=== PATIENT | male | born 1940 | race Caucasian/White ===

== ENCOUNTER 2021-11-17 14:34 | Emergency (ER) | payer MEDICARE, SELFPAY ==
--- NOTE | ~2021-11-17 | US_ITS ---
EXAMINATION: US venous doppler LE RT DATE: 11/17/2021 15:28 INDICATION: Right lower limb edema. TECHNIQUE: Grayscale ultrasound images without and with compression and Doppler ultrasound images of the right lower extremity veins were obtained. COMPARISON: None. FINDINGS: The visualized portions of right common femoral vein, profunda (deep) femoral vein, femoral vein, pop liteal vein, peroneal veins, posterior tibial veins, and greater saphenous vein outflow are patent. IMPRESSION: 1. No deep venous thrombosis. Reviewed, dictated and finalized at location A.
[2021-11-17 14:38] VITALS: BP 154/58; PULSE 84; RESP 14; TEMP 36.4; O2SAT 100
[2021-11-17 15:45] LABS: Basophils Percent Auto 0.3 % (0.2-1.2); Eosinophils Absolute Auto 0.1 K/mm3 (0-0.3); Eosinophils Percent Auto 0.8 % (0-4.4); Hematocrit 38.7 % (42.0-52.0); Hemoglobin 12.1 g/dL (14.0-18.0); Immature Granulocyte Absolute 0.04 K/mm3 (0.00-0.031); Immature Granulocyte Percent A 0.5 % (0-0.5); Lymphocytes Absolute Auto 1.38 K/mm3 (0.9-3.2); Lymphocytes Percent Auto 18.5 % (18.3-44.2); Mean Corpuscular HGB Conc 31.3 g/dl (32-36); Mean Corpuscular Hemoglobin 28.5 pg (26-34); Mean Corpuscular Volume 91.1 fl (80-100); Mean Platelet Volume 10.5 fl (7.4-10.4); Monocytes Absolute Auto 0.7 K/mm3 (0.1-0.6); Monocytes Percent Auto 8.8 % (2.6-8.5); Neutrophils Absolute Auto 5.3 K/mm3 (1.3-6.7); Neutrophils Percent Auto 71.1 % (45.5-73.1); Platelet Count Result 206 k/mm3 (150-375); Red Blood Count 4.25 M/mm3 (4.6-6.20); Red Cell Distribution Width 14.7 % (11.5-14.5); White Blood Count 7.5 K/mm3 (4.5-10.0)
[2021-11-17 15:50] LABS: Prothrombin Time 12.8 Seconds (11.1-14.7)
[2021-11-17 15:51] LABS: Partial Thromboplastin Time 25.4 SECONDS (22.3-36.8)
[2021-11-17 15:56] LABS: Anion Gap 6 mmol/L (8-16); Blood Urea Nitrogen 22 mg/dL (9-20); Calcium 8.9 mg/dL (8.4-10.2); Carbon Dioxide 28 mmol/L (22-30); Chloride 103 mmol/L (98-107); Estimated CRCL calculation 53 ml/min; Estimated Glomerular Filt Rate > 60; Glucose 103 mg/dL (65-110); Potassium 3.8 mmol/L (3.4-5.0); Sodium 137 mmol/L (137-145)
--- NOTE | 2021-11-17 16:08 | ED.EXTPRO ---
HPI - Extremity Problem General Chief complaint: Extremity Problem,Nontraumatic Stated complaint: lower leg swelling Time Seen by Provider: 11/17/21 15:02 Source: patient History of Present Illness HPI Narrative: Patient presents with lower extremity swelling and reports recent diagnosis of Parkinson's has had slight decrease in his mobility and had noted some lower extremity edema over the past week or so his right seems worse than his left. Does not describe pain describes an ache to his foot that is constant not worse with moving around no radiation. Denies any chest pain or shortness of breath denies any fevers or congestion. Related Data Allergies Allergy/AdvReac Type Severity Reaction Status Date / Time NONE Allergy Unknown Uncoded 02/23/03 15:11 NO KNOWN DRUG ALLERGIES Allergy Y Uncoded 02/23/03 15:50 (Class Allergy) Review of Systems Review of Systems: CONSTITUTIONAL: Denies fever, chills, or sweats. EYES: Denies visual changes, redness, or discharge. ENT: Denies rhinorrhea, congestion, sore throat, or otalgia. CARDIOVASCULAR: Denies chest pain, palpitations, or edema. RESPIRATORY: Denies cough or dyspnea. GASTROINTESTINAL: Denies abdominal pain, nausea, vomiting, or diarrhea. GENITOURINARY: Denies dysuria or hematuria. SKIN: Denies rash or itching. MUSCULOSKELETAL: Denies back pain, joint pain, or myalgia. NEUROLOGIC: Denies headache, numbness, dizziness, or weakness. PSYCHIATRIC: Denies anxiety or depression. All systems reviewed & are unremarkable except as noted in HPI and below PMFSH Past Medical History Medical History (Updated 11/17/21 @ 16:11 by Chris Borden MD) Parkinsons Social History Social History (Updated 11/17/21 @ 16:09 by Chris Borden MD) Living arrangements: with family Exam Narrative: GENERAL: Well-appearing, well-nourished, and in no acute distress. HEAD: Normocephalic, atraumatic. EYES: PERRLA and EOMI. ENT: Nares clear, no rhinorrhea or epistaxis. Mucous membranes moist. NECK: Supple. No masses. No JVD CHEST: Clear to auscultation. No respiratory distress. No wheezes rales or rhonchi HEART: Regular rate and rhythm. No murmur heard. Normal peripheral pulses. ABDOMEN: Soft, nontender, nondistended, normal active bowel sounds. EXTREMITIES: Normal range of motion. 1+ pitting edema right worse than left predominantly on the bilateral feet SKIN: Warm, dry, no rash. NEURO: No focal deficits. Alert and oriented x3. PSYCH: Normal mood and affect. Course Reevaluation(s) Reevaluation #1: Results and plan reviewed with patient. Patient comfortable with outpatient plan. Date: 11/17/21 Time: 16:10 Vital Signs Vital signs: Vital Signs Temperature 36.4 C L 11/17/21 14:38 Pulse Rate 84 11/17/21 14:38 Respiratory Rate 14 11/17/21 14:38 Blood Pressure 154/58 H 11/17/21 14:38 Pulse Oximetry 100 11/17/21 14:38 Temperature 36.9 C 11/17/21 16:52 Pulse Rate 80 11/17/21 16:52 Respiratory Rate 16 11/17/21 16:52 Blood Pressure 155/92 H 11/17/21 16:52 Pulse Oximetry 97 11/17/21 16:52 MDM - Extremity (Nontraumatic) MDM Narrative Medical decision making narrative: H&P as above, vss, pt looks clinically well, exam 1+ pitting edema in the bilateral lower extremities, labs clinically unremarkable, img clinically unremarkable, additional labs/img considered, symptomatic relief available as needed, on reevaluation pt continues to looks clinically well. Suspect edema related to increased sedentary lifestyle and recent diagnosis of Parkinson low concern for DVT, patient counseled on compression stockings. plan to tx/monitor as op w/ pcm f/u findings/plan discussed with pt, pt agree/comfortable with plan, return precautions given Lab Data Result diagrams: 11/17/21 15:33 11/17/21 15:33 Labs: Lab Results 11/17/21 11/17/21 11/17/21 Range/Units 15:33 15:33 15:33 WBC 7.5 (4.5-10.0) K/mm3 RBC 4.25 L (4.6-6.20) M/mm
[2021-11-17 16:51] VITALS: BP 155/92; PULSE 81; RESP 20; TEMP 36.9; O2SAT 98
[2021-11-17 16:52] VITALS: BP 155/92; PULSE 80; RESP 16; TEMP 36.9; O2SAT 97
== END 2021-11-17 16:59 | disposition home or self-care (01) ==
PROVIDERS: Emergency Provider Emergency Medicine; PCP Family Medicine Adolescent Medicine
DX: R60.0 Localized edema (principal); G20 Parkinson's disease
CPT/HCPCS: 36415; 80048; 85025; 85610; 85730; 93971; 99284

== ENCOUNTER 2022-01-13 17:53 | Inpatient (IN) | payer MEDICARE, SELFPAY ==
[2022-01-13] VITALS (9 sets, daily range): BP systolic 119–141; BP diastolic 58–105; PULSE 86–115; RESP 20–28; TEMP 36.3–36.5; O2SAT 95–98
--- NOTE | ~2022-01-13 | CT_ITS ---
EXAMINATION: CT diagnostic chest wo con DATE: 01/18/2022 11:27 INDICATION: Right chest wall hematoma/swelling. Covid infection. COPD. TECHNIQUE: Computed tomography (CT) of the chest was performed without intravenous contrast. The dose -length product was 573.41 mGy-cm. Automated exposure control and iterative reconstruction technique were employed. COMPARISON: Chest x-ray dated 01/16/2022 FINDINGS: There is significant enlargement of the right pectoralis muscle which contains large areas of fluid attenuation, consistent with intramuscular hematoma. There is extensive stranding of the fat surrounding the pectoralis muscle extending into the axilla, consistent with hemorrhage extension. N o significant pleural or pericardial effusion. Heart size normal. Large hiatal hernia. No thoracic ly mphadenopathy. No endobronchial lesions. Calcified granuloma left upper lobe. Evaluation of lung pare nchyma limited by motion. No pneumothorax. There is mild age-indeterminate inferior endplate compress ion fracture of T12. No focal airspace consolidation. No endobronchial lesions. IMPRESSION: 1. Asymmetric enlargement of the right pectoralis muscle with areas of internal fluid attenuation, co nsistent with intramuscular hematoma. There is extension into the surrounding fat and axilla. 2: Age indeterminate inferior endplate compression fracture of T12. Reviewed, dictated and finalized at location B. IMPRESSION: 1. Asymmetric enlargement of the right pectoralis muscle with areas of internal fluid attenuation, consistent with intramuscular hematoma. There is extension into the surrounding fat and axilla. 2: Age indeterminate inferior endplate compression fracture of T12.
--- NOTE | ~2022-01-13 | XR_ITS ---
EXAMINATION: XR chest 1V portable DATE: 01/16/2022 10:48 INDICATION: Shortness of breath. TECHNIQUE: A single frontal view of the chest was obtained. COMPARISON: Chest single view 01/13/2022 FINDINGS: There is mild elevation of left hemidiaphragm. There is mild atelectasis in the lower lung zones. A calcified left lung nodule is consistent with old granulomatous disease. No pleural effusion or pneumothorax. The heart size is normal. IMPRESSION: 1. Mild atelectasis in the lower lung zones. Reviewed, dictated and finalized at location B.
--- NOTE | ~2022-01-13 | XR_ITS ---
XR chest 1V portable 01/19/2022 13:32 Indication: Confusion and shortness of breath Procedure: AP portable chest Comparison: 01/16/2022 Findings: Calcified granuloma are present in the left lung. Stable cardiomediastinal silhouette. Ther e is a hiatal hernia. No focal air space disease, pulmonary edema, pleural effusion or suspected pneu mothorax. Shallow inspiration with crowding of the pulmonary vessels. Impression: 1: No acute cardiopulmonary disease. Reviewed, dictated and finalized at location B. Impression: 1: No acute cardiopulmonary disease.
--- NOTE | ~2022-01-13 | CT_ITS ---
EXAMINATION: CT brain wo con DATE: 01/13/2022 18:21 INDICATION: weakness TECHNIQUE: Computed tomography (CT) of the head was performed without intravenous contrast. The mA wa s adjusted according to patient size. Iterative reconstruction technique was employed. The dose-lengt h product was 681.00 mGy-cm. COMPARISON: None. FINDINGS: No acute intracranial hemorrhage or extra-axial fluid collection. No hydrocephalus, mass, or herniation. No acute ischemic infarct. Unremarkable dural venous sinus attenuation. No acute osseous abnormality. Left posterior ethmoid opacification. Mucosal thickening and stranding sclerosis in the left frontal, right sphenoid, and bilateral maxillary sinuses, otherwise the aerated spaces are clear. Moderate atrophy and severe chronic white matter change. Atherosclerotic intrarenal calcifications. IMPRESSION: No acute intracranial process. Findings suggestive of chronic sinusitis as described above. Reviewed, dictated and finalized at location K. IMPRESSION: No acute intracranial process. Findings suggestive of chronic sinusitis as desc ribed above.
--- NOTE | ~2022-01-13 | US_ITS ---
EXAMINATION: US renal BI DATE: 01/20/2022 13:59 INDICATION: elevated creatinine TECHNIQUE: Multiple grayscale and Doppler ultrasound images of the kidneys were obtained. COMPARISON: None available FINDINGS: Exam limited by body habitus and bowel gas. The right kidney measures 11.0 x 5.2 x 5.0 cm. The left k idney measures 10.1 x 5.6 x 5.6 cm. The kidneys demonstrate normal parenchymal echogenicity.No sonogr aphic evidence of nephrolithiasis. No mass. No hydronephrosis. Bladder not visualized. IMPRESSION: 1. Exam limited as described above, within those constraints no renal abnormality detected. Bladder n ot visualized. Reviewed, dictated and finalized at location K. IMPRESSION: 1. Exam limited as described above, within those constraints no renal abnormali ty detected. Bladder not visualized.
--- NOTE | ~2022-01-13 | CT_ITS ---
EXAMINATION: CTA chest abdomen DATE: 01/23/2022 12:00 INDICATION: Acute anemia. Chest wall hematoma. TECHNIQUE: Computed tomographic angiography (CTA) of the chest and abdomen was performed with 100 mL Omnipaque 300 intravenous contrast. Automated exposure control and iterative reconstruction technique were employed. The dose-length product was 1325.83 mGy-cm. Maximum intensity projection 3D-reconstru ctions of the aorta and other arteries were constructed by the technologist on a separate workstation . COMPARISON: Chest CT 01/18/2022 FINDINGS: CHEST CTA: The lungs demonstrate motion artifact and mild atelectasis. No pleural effusion. The heart size is no rmal. There are coronary artery calcifications. No pericardial effusion. Thoracic aorta is normal in caliber. Aortic atherosclerosis is noted. There is a large sliding hiatal hernia. There is a large he matoma expanding right pectoralis minor muscle. Active extravasation of contrast is not identified. T here is mild thoracic spondylosis. There is a benign bone island in C6 vertebral body. There is a com pression fracture of T12. ABDOMEN CTA: The liver, gallbladder, spleen, pancreas, and adrenal glands are normal. There is cortical thinning o f the kidneys. There is a 14 mm cyst in right kidney. There are no dilated loops of bowel. Body wall edema is noted. There is severe lower lumbar spondylosis. IMPRESSION: 1. Large hematoma expanding right pectoralis minor muscle with interval worsening. No active extravas ation of contrast. 2. T12 compression fracture again seen, likely subacute. Reviewed, dictated and finalized at location A. IMPRESSION: 1. Large hematoma expanding right pectoralis minor muscle with interval worseni ng. No active extravasation of contrast. 2. T12 compression fracture again seen, likely subacute.
--- NOTE | ~2022-01-13 | CT_ITS ---
EXAMINATION: CT brain wo con DATE: 01/25/2022 17:22 INDICATION: Confusion TECHNIQUE: Computed tomography (CT) of the head was performed without intravenous contrast. The dose- length product was 681.00 mGy-cm. Automated exposure control and iterative reconstruction technique w ere employed. COMPARISON: CT dated 01/13/2022 FINDINGS: Generalized atrophy. There are scattered moderate-severe periventricular and subcortical wh ite matter changes, most likely related to small vessel ischemic disease (microangiopathy). No ventri culomegaly or midline shift. There is intracranial atherosclerosis. No acute intracranial hemorrhage, infarction, mass or mass effect. There is mucosal thickening of the maxillary, ethmoid, sphenoid and left frontal sinuses with mucoperiosteal reaction. Mastoids are pneumatized. No depressed skull frac tures. IMPRESSION: 1. No acute intracranial abnormality. 2: Chronic sinusitis. 3: Chronic age-related findings. Reviewed, dictated and finalized at location A.
--- NOTE | ~2022-01-13 | XR_ITS ---
EXAMINATION: XR chest 1V portable Exam Date/Time: 01/13/2022 18:16 CDT CLINICAL HISTORY: SOB Comparison: None available. RESULT: Lines, tubes, and devices: None. Lungs and pleura: Left hemidiaphragm elevation and right hemidiaphragm eventration. Streaky bibasila r opacities. Otherwise clear. Cardiomediastinal silhouette: Arch calcification, otherwise normal cardiomediastinal silhouette. Other: No acute osseous or upper abdominal finding. IMPRESSION: No acute cardiopulmonary process. Minimal bibasilar opacities often attributed to atelectasis. Reviewed, dictated and finalized at location K.
--- NOTE | ~2022-01-13 | XR_ITS ---
EXAMINATION: XR chest PICC line Exam Date/Time: 01/21/2022 16:00 CDT HISTORY: PICC placement Comparison: Same date, 12:13 AM. RESULT: Lines, tubes, and devices: New left upper extremity PICC terminating in the SVC. Lungs and pleura: Unchanged pulmonary and thoracic opacities. Cardiomediastinal silhouette: Stable cardiomediastinal silhouette. Other: No acute osseous or upper abdominal finding. IMPRESSION: Left upper extremity PICC, in good position. No other interval change.. Reviewed, dictated and finalized at location K.
--- NOTE | ~2022-01-13 | XR_ITS ---
EXAMINATION: XR barium swallow modified DATE: 01/25/2022 09:50 INDICATION: Dysphagia. TECHNIQUE: The patient was given barium-containing material of multiple consistencies to swallow by t he speech pathologist while I performed fluoroscopy. Fluoroscopy exposure time was 2.8 minutes. The n umber of fluoroscopy images saved to the PACS was 1. Dose-area product was 2.787 Gy-cm^2. FINDINGS: There was reduced laryngeal elevation and minimal vallecular residue. There was laryngeal penetration with thin liquids and nectar thick liquids with delayed cough. Aspiration was not visualized, but se nsitivity is decreased due to the positioning of the patient's shoulders. IMPRESSION: 1. Laryngeal penetration with thin liquids and nectar thick liquids. 2. Please refer to the speech therapy report for recommendations. Reviewed, dictated and finalized at location A.
--- NOTE | ~2022-01-13 | XR_ITS ---
EXAMINATION: XR chest 1V portable DATE: 01/21/2022 00:51 INDICATION: Tachycardia. Congestion. Large right upper chest hematoma. TECHNIQUE: frontal view of the chest was obtained. COMPARISON: 01/19/[address] dated 01/18/2022 FINDINGS: Unchanged elevation the left hemidiaphragm with mild streaky lingular atelectasis at the left costoph renic angle. Small calcified nodules at the left midlung zone consistent with old granulomatous disea se. Asymmetric hazy opacity throughout the right hemithorax likely resulting from the overlying anter ior right chest wall subpectoral hematoma. No pulmonary edema, pleural effusion or pneumothorax. Hear t size is normal. Moderate-sized hiatal hernia. Moderate bilateral glenohumeral osteoarthritis. IMPRESSION: 1. Mild lingular atelectasis. No other acute cardiopulmonary disease. Reviewed, dictated and finalized at location A.
--- NOTE | 2022-01-13 18:03 | ECG_ITS ---
Measurements Intervals [place] Rate: 99 P: SC: 0 QRS: -5 QRSD: 82 T: 4 QT: 316 QTc: 405 Interpretive Statements ATRIAL FIBRILLATION EARLY PRECORDIAL R/S TRANSITION BASELINE ARTIFACT- II, III, AVF ABNORMAL ECG Electronically Signed On 01-13-2022 20:36:40 CDT by Vinh Humphreys D.O.
--- NOTE | 2022-01-13 18:07 | ED.WEAKNESS ---
HPI - Weakness General Chief complaint: Weakness Stated complaint: weakness Time Seen by Provider: 01/13/22 17:57 Source: patient Mode of arrival: ambulatory Limitations: no limitations History of Present Illness HPI Narrative: 81 year old male presents today via ems with complaints of weakness. Patient has history of parkinson's and ble edema. Patient lives at home and normally has help from his daughter, but currently she has covid and is no able to help as much. Patient seen here for similar symptoms about a week ago. Patient currently alert and oreinted x 2. Related Data Home Medications Medication Instructions Recorded Confirmed carbidopa-levodopa 1 tablet PO TID 01/13/22 01/13/22 fluticasone furoate-vilanterol 1 inh INHALATION DAILY 01/13/22 01/13/22 [Breo Ellipta] vit C,E-Qn-mkfwm-lutein-zeaxan 1 tablet PO BID 01/13/22 01/13/22 [PreserVision AREDS-2] Allergies Allergy/AdvReac Type Severity Reaction Status Date / Time No Known Allergies Allergy Verified 01/13/22 22:48 Review of Systems Review of Systems: CONSTITUTIONAL: Denies fever, chills, or sweats. EYES: Denies visual changes, redness, or discharge. ENT: Denies rhinorrhea, congestion, sore throat, or otalgia. CARDIOVASCULAR: Denies chest pain, palpitations, or edema. RESPIRATORY: Denies cough or dyspnea. GASTROINTESTINAL: Denies abdominal pain, nausea, vomiting, or diarrhea. GENITOURINARY: Denies dysuria or hematuria. SKIN: Denies rash or itching. MUSCULOSKELETAL: Denies back pain, joint pain, or myalgia. NEUROLOGIC: Weakness. Denies headache, numbness, dizziness. PSYCHIATRIC: Denies anxiety or depression. 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 Parkinsons Surgical History Surgical History (Updated 01/13/22 @ 23:37 by Elizabeth Carvajal DO) Surgical history unknown Family History Family History Grandparent Diabetes mellitus Father Malignant neoplasm of prostate Mother Diabetes mellitus Sibling Axonal GBS (Guillain-[place] syndrome) Social History Social History (Updated 01/13/22 @ 23:43 by Elizabeth Carvajal DO) Social History: Code status: Full code Surrogate decision maker: Daughter Smoking status: Never smoker Alcohol intake: never Substance use: never Substance use type: does not use Living arrangements: alone Spiritual care concerns: No Exam Narrative: GENERAL: ill appearing and in no acute distress. HEAD: Normocephalic, atraumatic. EYES: PERRLA and EOMI. ENT: Nares clear, no rhinorrhea or epistaxis. Mucous membranes moist. Oropharynx without tonsillar hypertrophy exudate or other lesions. Bilateral TMs pearly dunne nonbulging NECK: Supple. No adenopathy or masses. No carotid bruits or JVD CHEST: Clear to auscultation. No respiratory distress. No wheezes rales or rhonchi HEART: Regular rate and rhythm. No murmur heard. Normal peripheral pulses. ABDOMEN: Soft, nontender, nondistended, normal active bowel sounds. EXTREMITIES: Normal range of motion. No edema. SKIN: Warm, dry, no rash. NEURO: No focal deficits. Alert and oriented x3. PSYCH: Normal mood and affect. Course MEDICAL DETAIL REPRESENTATIVE/PA Physician Supervision 81-year-old male presents today with weakness. EKG shows A. fib with a heart rate of 99. Monitor shows heart rate ranging from 99-1 25. Patient without any complaints other than weakness. Denies shortness of breath, chest pain, cold symptoms. Patient seen here about a month ago for bilateral lower extremity swelling. Patient still with swelling to bilateral lower extremities. Talk to daughter on the phone patient without any cardiac history. Patient new onset A. fib to be admitted for further management by hospitalist and cardiology. Daughter is
[2022-01-13 18:37] LABS: Base Excess ABG 0.6 mEq/l (+/-2.0); Fractional Inspired Oxygen 21 %; HCO3 ABG 23.8 mEq/l (22.0-26.0); Oxygen Content ABG 16.7 %vol (16.0-22.0); Oxygen Saturation ABG 95.4 % (95.0-100.0); Oxyhemoglobin 94.1 % THb (90.0-100.0); PCO2 ABG 33.7 mmHg (35.0-45.0); PO2 ABG 71.4 mmHg (80.0-100.0); Total Hemoglobin 12.6 g/dL (12.0-18.0); pH ABG 7.467 (7.350-7.450)
[2022-01-13 18:39] LABS: Device ROOM AIR; Modified Allen's Test Pass; Site Drawn RIGHT RADIAL
[2022-01-13 18:53] LABS: Basophils Percent Auto 0.4 % (0.2-1.2); Eosinophils Percent Auto 0.4 % (0-4.4); Hematocrit 37.8 % (42.0-52.0); Hemoglobin 11.9 g/dL (14.0-18.0); Immature Granulocyte Absolute 0.04 K/mm3 (0.00-0.031); Immature Granulocyte Percent A 0.7 % (0-0.5); Lymphocytes Absolute Auto 1.05 K/mm3 (0.9-3.2); Lymphocytes Percent Auto 18.9 % (18.3-44.2); Mean Corpuscular HGB Conc 31.5 g/dl (32-36); Mean Corpuscular Hemoglobin 27.2 pg (26-34); Mean Corpuscular Volume 86.5 fl (80-100); Mean Platelet Volume 11.4 fl (7.4-10.4); Monocytes Absolute Auto 0.7 K/mm3 (0.1-0.6); Monocytes Percent Auto 12.6 % (2.6-8.5); Neutrophils Absolute Auto 3.7 K/mm3 (1.3-6.7); Platelet Count Result 154 k/mm3 (150-375); Red Blood Count 4.37 M/mm3 (4.6-6.20); Red Cell Distribution Width 14.7 % (11.5-14.5); White Blood Count 5.6 K/mm3 (4.5-10.0)
[2022-01-13 19:05] LABS: Alanine Aminotransferase 10 U/L (6-50); Albumin Level 3.6 g/dL (3.5-5.1); Alkaline Phosphatase 57 U/L (38-126); Anion Gap 7 mmol/L (8-16); Aspartate Amino Transferase 36 U/L (17-59); Bilirubin,Total 1.1 mg/dL (0.2-1.3); Blood Urea Nitrogen 24 mg/dL (9-20); Calcium 8.6 mg/dL (8.4-10.2); Carbon Dioxide 24 mmol/L (22-30); Chloride 104 mmol/L (98-107); Estimated CRCL calculation 66 ml/min; Estimated Glomerular Filt Rate > 60; Glucose 108 mg/dL (65-110); Magnesium 1.9 mg/dL (1.6-2.3); Sodium 135 mmol/L (137-145)
[2022-01-13 19:11] LABS: INR 1.1; Prothrombin Time 13.8 Seconds (11.1-14.7)
[2022-01-13 19:12] LABS: Partial Thromboplastin Time 27.9 SECONDS (22.3-36.8)
--- NOTE | 2022-01-13 19:12 | PC.NURSE ---
Assuming care of pt.
[2022-01-13 19:16] LABS: NT Pro B Type Natriuretic Pept 381 pg/mL (5-100); Troponin I 0.014 ng/mL (0.000-0.034)
[2022-01-13 19:38] LABS: SARS-CoV-2 RNA PCR Positive
[2022-01-13] MEDS: dilTIAZem HCl INJ 25 MG/5 ML VIAL 10 MG IV PUSH (19:54)
[2022-01-13] MEDS: dilTIAZem HCL 30 MG TABLET PO (19:54)
[2022-01-13] MEDS: ENOXAPARIN 100 MG/ML SYRINGE SUB-Q (21:07)
--- NOTE | 2022-01-13 22:03 | ADMGEN ---
This patient, Zaheer Campbell, was admitted to 2 Medical Room 257-01 @2200. Patient/family oriented to hospital policies and general routines including ID bracelet, bed and alarms, visiting hours, pain management, procedures, bathroom and other care routines, personal items, smoking policy, room service/diet, and visiting hours. Information on how to activate the Rapid Response Team has been discussed. Patient/Family are encouraged to report perceived risks to care and to ask questions if they do not understand what they are told or what they should do.
--- NOTE | 2022-01-13 23:32 | PM.IMHP ---
H&P: HPI History of Present Illness Date/Time: 01/13/22 23:32 Chief Complaint: Weakness Narrative: 81-year-old male with past medical history of Parkinson's, COPD and previously undiagnosed dementia who presented to the ER with weakness for 5 days. The patient's daughter was diagnosed with COVID 5-7 days ago. The patient was tested for COVID on arrival to the ER found to be positive. The patient had denied having any cough but was only a alert oriented x1 and was noted to be coughing when I arrived at the patient's bedside. Patient was also noted to be wheezing. He denied feeling more short of breath than usual. He does report having lower extremity edema but is unclear if his edema is worse than usual. He denies any fevers or chills. He denied any chest pain. He denies having any changes in bowel habits. He was noted to be in AFib on arrival to the ER but denies any palpitations. The patient does not have a known history of atrial fibrillation but has not had an EKG within our system previously. The patient's daughter reports the patient has not been diagnosed with dementia. However she did report to nursing staff that the patient has been having progressively increasing confusion since his Parkinson's diagnosis back in May of 2021. She reports that the patient had poor depends in the past but only had rare episodes of urine incontinence. Evidently when she went over to patient's house recently she found several saturated depends in the trash. Despite the patient denying any episodes of incontinence at home. He also had associated maceration of skin is inguinal folds. ER staff had reported that the patient lives with his daughter. Unfortunately, the patient actually lives alone in his daughter goes check on him frequently. The ER note states that the patient has been having lower extremity swelling for the last week. However, patient was evaluated in October due to lower extremity swelling. So it seems the patient's lower extremity swelling has been ongoing for at least several months. The patient had venous Dopplers that were negative for DVT in October 2021. He denies any calf pain. Review of Systems Review of Systems: Twelve systems were reviewed however limited due to patient being a poor historian. Pertinent positives and negative can be found under HPI. The majority of HPI was obtained from review of ER records and nursing report. [facility] Past Medical History Medical History (Updated 01/13/22 @ 23:49 by Elizabeth Carvajal DO) Bilateral cataracts COPD (chronic obstructive pulmonary disease) Dementia associated with Parkinson's disease Macular degeneration Parkinsons Surgical History Surgical History (Updated 01/13/22 @ 23:37 by Elizabeth Carvajal DO) Surgical history unknown Family History Family History Grandparent Diabetes mellitus Father Malignant neoplasm of prostate Mother Diabetes mellitus Sibling Axonal GBS (Guillain-[place] syndrome) Social History Social History (Updated 01/13/22 @ 23:43 by Elizabeth Carvajal DO) Social History: Code status: Full code Surrogate decision maker: Daughter Smoking status: Never smoker Alcohol intake: never Substance use: never Substance use type: does not use Living arrangements: alone Spiritual care concerns: No Meds Home Medications and Allergies Home Medications Medication Instructions Recorded Confirmed Type carbidopa-levodopa 1 tablet PO TID 01/13/22 01/13/22 History fluticasone furoate-vilanterol 1 inh INHALATION DAILY 01/13/22 01/13/22 History [Breo Ellipta] vit C,E-Lr-spcez-lutein-zeaxan 1 tablet PO BID 01/13/22 01/13/22 History [PreserVision AREDS-2] Allergies Allergy/AdvReac Type Severity Reaction Status Date / Time No Known Allergies Allergy Verified 01/13/22 22:48 Vital Signs Vital Signs - 24 hr 01/13/22 18:00 01/13/22 18:11 01/13/22
[2022-01-14] VITALS (14 sets, daily range): BP systolic 127–134; BP diastolic 68–92; PULSE 79–109; RESP 12–20; TEMP 35.8–36.9; O2SAT 95–96
[2022-01-14] MEDS: SODIUM CHLORIDE 0.9% IV 1,000 ML 250 ML IV CONT (00:10)
[2022-01-14] MEDS: dilTIAZem HCL 30 MG TABLET PO ×2 (00:11→05:14)
[2022-01-14 00:51] LABS: Add Urine Microscopic? YES; Appearance Urine Clear (Clear); Bilirubin Urine 1+ (Negative); Blood Urine Negative (Negative); Color Urine Yellow (Yellow); Glucose Urine UA Negative (Negative); Ketones Urine 2+ mg/dL (Negative); Leukocyte Esterase Ur Negative LEU/UL (Negative); Nitrate Urine Negative (Negative); Protein Urine 1+ mg/dL (Negative); Specific Grav Ur >= 1.030 (1.001-1.035); pH Urine 5.5 (5.0-9.0)
[2022-01-14 01:02] LABS: Mucus Urine Rare /lpf; RBC Urine 0-2 /hpf (0-2)
[2022-01-14] MEDS: LEVALBUTEROL HFA (*SP) 15 GM INHALER 2 PUFF INHALATION ×4 (02:20→20:20)
[2022-01-14] MEDS: OPTI-GEN TAB 1 TABLET PO ×2 (08:54→17:07)
[2022-01-14] MEDS: CARBIDOPA/LEVODOPA 10/100 MG TABLET 1 TABLET PO ×3 (08:54→17:07)
[2022-01-14] MEDS: ENOXAPARIN 100 MG/ML SYRINGE SUB-Q ×2 (08:54→20:42)
--- NOTE | 2022-01-14 09:23 | PM.CNCAR ---
Assessment and Plan Assessment and plan (1) New onset a-fib: Code(s): I48.91 - Unspecified atrial fibrillation Status: Acute Assessment and Plan: Atrial fibrillation on certain duration. He is back in sinus rhythm at this point. He is unlikely anticoagulation candidate given his Parkinson's and fall history but his gait stability will need to be assessed by physical therapy before discharge. His atrial fibrillation is likely brought on by his COVID infection. Enoxaparin 1 milligram/kilogram subQ q.12 hours for now while in the hospital. Will transition him from diltiazem to metoprolol. Will use metoprolol tartrate 25 mg p.o. b.i.d.. Discontinue diltiazem. 2D echocardiogram Doppler be ordered and reviewed. Check a TSH and free T4 level. (2) COVID: Code(s): U07.1 - COVID-19 Status: Acute Assessment and Plan: Isolation precaution to (3) Weakness: Code(s): R53.1 - Weakness Status: Acute Assessment and Plan: Likely related to a combination of COVID and AFib (4) Parkinsons: Code(s): G20 - Parkinson's disease Status: Acute History of Present Illness History of Present Illness Consult date/time: 01/14/22 09:23 Requesting physician: Miryam Fragoso APRN Consult reason: atrial fibrillation Reason For Visit: new onset afib Narrative: Date of service 01/14/2022 Reason for consultation atrial fibrillation Requesting provider: Miryam fragoso. Is History: Patient 81-year-old male who has Parkinson's disease who has recently fallen. He also has dementia COPD and a recent diagnosis of COVID. Patient states he was more short of breath over the past several days. He is progressively more weak and because of confusion, weakness and shortness of breath he came to hospital for further workup evaluation. He was found to be in atrial fibrillation with rapid ventricular response. He was admitted to the general telemetry floor. He has since converted back to sinus rhythm. He is feeling a little bit better today. He denies any chest pain, syncope, presyncope, paroxysmal nocturnal dyspnea, orthopnea, edema or palpitations. Review of Systems Review of Systems: All systems reviewed & are unremarkable except as noted in HPI and below Constitutional: Constitutional: Reports weakness Eyes: Eyes: Denies blurry vision ENT: Reports Normal hearing present Cardiovascular: Cardiovascular: Denies chest pain Respiratory: Respiratory: Reports dyspnea Gastrointestinal: Gastrointestinal: Denies abdominal pain Genitourinary: Genitourinary: Reports urinary frequency Musculoskeletal: Musculoskeletal: Denies neck pain Integumentary/Breasts: Skin/Breast: Denies dry skin Neurologic: Denies headache(s) Psychiatric: Psychiatric: Denies anxiety Endocrine: Endocrine: Denies excessive sweating Hematologic/Lymphatic: Hematologic/Lymphatic: Denies easy bleeding Allergic/Immunologic: Allergic/Immunologic: Denies GI upset with certain foods PMFSH Past Medical History Medical History Bilateral cataracts COPD (chronic obstructive pulmonary disease) 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
[2022-01-14] MEDS: FLUTICASONE/SALMETEROL 115-21 MCG INHALER 1 PUFF 2 PUFF INHALATION ×2 (09:32→20:20)
[2022-01-14 11:27] LABS: Free T4 Free Thyroxine 0.97 ng/mL (0.78-2.19)
--- NOTE | 2022-01-14 17:16 | PM.IMPN ---
Progress Note: A&P Assessment and Plan (1) New onset a-fib: Code(s): I48.91 - Unspecified atrial fibrillation Status: Acute Assessment and Plan: Patient has new onset of AFib previously undiagnosed. Duration of AFib is unknown. Will obtain echocardiogram to evaluate cardiac structure and function. Patient has get been given therapeutic Lovenox. Patient started on Cardizem pushes in the ER and has been started on Cardizem p.o.. For the most part patient's heart rate has been between 90 and 110s. Cardiology has been consulted. The risks and benefits of long-term anticoagulation will need to be discussed with the patient's daughter as patient cannot give informed consent at this time with his dementia. Patient is at high risk for falls. 01/14: Echo pending, appreciate cardiology consultation (2) COVID: Code(s): U07.1 - COVID-19 Status: Acute Assessment and Plan: 01/14: Appears to be asymptomatic 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; F02.80 - Dementia in other diseases classified elsewhere without behavioral disturbance Status: Inactive (5) Parkinsons: Code(s): G20 - Parkinson's disease Status: Acute Assessment and Plan: Continue home medications Subjective Date/time seen: 01/14/22 17:16 Patient resting comfortably without any complaints. He does admit to having some swelling over the last couple months. Denies any fevers or chills. No nausea vomiting or diarrhea. Review of Systems Review of Systems: All systems reviewed & are unremarkable except as noted in HPI and below Exam Const: General: no acute distress HENMT: Mouth: Yes moist mucous membranes Eyes: General: appearance normal, both eyes and all related structures Neck: Neck: no JVD Resp: Auscultation: clear to auscultation bilaterally Cardio: Rhythm: abnormal rhythm GI: Inspection: non-distended GI Palp: Yes Soft to palpation and No Tenderness to palpation present (GI) : Male General Exam: Yes normal external exam Skin: General skin exam: no rashes or lesions noted Psych: Mental Status: mental status grossly normal Objective Data Vital Signs Vital Signs: Vital Signs - 24 hr 01/13/22 18:00 01/13/22 18:11 01/13/22 19:12 Temperature 97.4 F L Pulse Rate 102 H 110 H 107 H Respiratory Rate 28 H 20 Blood Pressure 119/58 L 137/76 Pulse Oximetry 98 96 01/13/22 19:55 01/13/22 20:18 01/13/22 21:01 Temperature Pulse Rate 115 H 97 86 Respiratory Rate 22 H 20 20 Blood Pressure 119/93 H 137/69 141/90 H Pulse Oximetry 96 96 96 01/13/22 21:16 01/13/22 22:18 01/13/22 22:51 Temperature 97.7 F Pulse Rate 88 108 H 112 H Respiratory Rate 22 H 20 Blood Pressure 124/105 H 137/79 Pulse Oximetry 95 98 01/14/22 00:00 01/14/22 02:20 01/14/22 04:00 Temperature Pulse Rate 79 91 Respiratory Rate Blood Pressure Pulse Oximetry 95 01/14/22 04:12 01/14/22 08:03 01/14/22 09:32 Temperature 97.8 F Pulse Rate 82 86 88 Respiratory Rate 20 14 Blood Pressure 129/68 Pulse Oximetry 96 01/14/22 12:00 01/14/22 13:28 01/14/22 14:30 Temperature 98.4 F Pulse Rate 90 88 83 Respiratory Rate 12 18 Blood Pressure 134/92 H Pulse Oximetry 95 Intake/Output Intake/Output: Intake & Output 01/11/22 01/12/22 01/13/22 01/14/22 23:59 23:59 23:59 23:59 Intake Total 1600 Output Total 200 Balance 1400 Meds/Results Medications: Active Medications Generic Name Dose Route Start Last Admin Trade Name Freq PRN Reason Stop Dose Admin Carbidopa/Levodopa 1 tablet 01/14/22 08:00
[2022-01-14] MEDS: METOPROLOL TARTRATE 25 MG TABLET PO (20:42)
[2022-01-15] VITALS (14 sets, daily range): BP systolic 121–130; BP diastolic 76–83; PULSE 75–122; RESP 16–20; TEMP 36.1–36.5; O2SAT 92–98
--- NOTE | 2022-01-15 | ECHO_ITS ---
Patient Info Name: Zaheer Campbell Age: 81 years : 1940 Gender: Male Ht: 71 in Wt: 219 lbs BSA: 2.26 m2 HR: 99 bpm BP: 123 / 80 mmHg Technical Quality: Good Exam Date: 01/15/2022 3:09 PM Exam Location: [facility] Pulmonary Exam Room: 257 Patient Status: Inpatient Admit Date: 01/13/2022 Staff Ordering Physician: Elizabeth Carvajal DO Sales Representative Electric Service: Romi Cordova RDCS Attending Provider: Zeny Uribe DO Referring Physician: Alena DAUGHERTY; Exam Type: CA echo doppler color flow Study Info Indications - NEW AFIB Complete two-dimensional, color flow and Doppler transthoracic echocardiogram is performed. Summary 1. Complete two-dimensional, color flow and Doppler transthoracic echocardiogram is performed. 2. Normal LV size, mild LVH, normal LV systolic function, ejection fraction about 55%; indeterminate diastolic function. Borderline left atrial enlargement. Mitral annular calcification, trivial MR. Normal aortic valve structure, no regurgitation or stenosis. Trivial TR, RVSP 30 mmHg. Left Ventricle Left ventricular chamber dimension is normal. Left ventricular systolic function is normal, estimated at 55-60%. There is mildly increased left ventricular wall thickness. Right Ventricle Right ventricular chamber dimension is normal. Right ventricular systolic function is normal. Left Atria Left atrial chamber dimension is mildly enlarged. Right Atria Right atrial chamber dimension is normal. Aortic Valve The aortic valve is normal. There is no aortic valve stenosis. Pulmonic Valve The pulmonic valve is normal. There is mild pulmonic regurgitation. Mitral Valve There is trace mitral valve regurgitation. The mitral valve annulus is mildly calcified. Tricuspid Valve The tricuspid valve leaflets are normal. There is trace tricuspid valve regurgitation. Pericardium/Pleural The pericardium appears epicardial fat pad. Inferior Vena Cava Normal inferior vena cava with >50% collapse upon inspiration consistent with normal right atrial pressure, 10 mmHg. Aorta The aortic root size at the sinus of Valsalva is normal. Left Ventricular Outflow Tract Name Value Normal LVOT 2D LVOT Diameter 2.1 cm LVOT Doppler LVOT Peak Gradient 4 mmHg LVOT Mean Gradient 3 mmHg LVOT VTI 18 cm LVOT VTI/AV VTI Ratio 0.9 LVOT Stroke Volume 61 ml LVOT CO 16.2 l/min LVOT CI 7.2 l/min/m2 Pulmonic Valve Name Value Normal PV Doppler PV Peak Gradient 3 mmHg PV Regurgitation Doppler NH Peak End Diastolic Velocity
[2022-01-15] MEDS: LEVALBUTEROL HFA (*SP) 15 GM INHALER 2 PUFF INHALATION ×4 (01:52→20:57)
--- NOTE | 2022-01-15 08:26 | PM.PNCARD ---
Progress Note: A&P Assessment and Plan (1) New onset a-fib: Code(s): I48.91 - Unspecified atrial fibrillation Status: Acute Assessment and Plan: Atrial fibrillation of uncertain duration. He is back in sinus rhythm at this point. He is unlikely to be an anticoagulation candidate given his Parkinson's and fall history but his gait stability will need to be assessed by physical therapy before discharge. His atrial fibrillation is likely brought on by his COVID infection. Enoxaparin 1 milligram/kilogram subQ q.12 hours for now while in the hospital. Suboptimal rate control. Increase metoprolol to 50mg b.i.d. Monitor BP and HR very closely. 2D echocardiogram results pending. Further recommendations to follow review of that study. TSH and T4 WNL (2) COVID: Code(s): U07.1 - COVID-19 Status: Acute Assessment and Plan: Isolation precautions (3) Weakness: Code(s): R53.1 - Weakness Status: Acute Assessment and Plan: Likely related to a combination of COVID and AFib (4) Parkinsons: Code(s): G20 - Parkinson's disease Status: Acute Subjective Date/time seen: 01/15/22 08:26 Cardiology follow up for atrial fibrillation He's feeling well this morning. Wants to get out of bed. Does not have any chest pain, palpitations. Does have some shortness of breath but no worse than it has been. Review of Systems Review of Systems: All systems reviewed & are unremarkable except as noted in HPI and below Constitutional: Constitutional: Denies excessive sweating, Denies headache(s) and Reports weakness Eyes: Eyes: Denies blurry vision ENT: Reports Normal hearing present, Denies headache(s) and Denies neck pain Cardiovascular: Cardiovascular: Denies chest pain and Reports dyspnea Respiratory: Respiratory: Reports dyspnea Gastrointestinal: Gastrointestinal: Denies abdominal pain Genitourinary: Genitourinary: Reports urinary frequency Musculoskeletal: Musculoskeletal: Denies neck pain Integumentary/Breasts: Skin/Breast: Denies dry skin Neurologic: Reports Normal hearing present, Denies headache(s) and Reports weakness Psychiatric: Psychiatric: Denies anxiety Endocrine: Endocrine: Denies excessive sweating Hematologic/Lymphatic: Hematologic/Lymphatic: Denies easy bleeding Allergic/Immunologic: Allergic/Immunologic: Denies GI upset with certain foods Exam Narrative: Awake and alert. Const: General: comfortable and no acute distress HENMT: General nose exam: Normal nares present Eyes: Sclera: sclerae normal Neck: Neck: supple and no JVD Resp: Auscultation: diminished lung sounds Cardio: Rate: tachycardic Rhythm: abnormal rhythm Heart sounds: S1 normal heart sound present, S2 normal heart sound present and no murmurs GI: Inspection: non-distended Auscultation: normal bowel sounds Skin: General skin exam: normal color Neuro: Cranial nerves: Yes Normal hearing present Cognition (Neuro): normal cognition Speech: normal speech Extrem: General: normal to inspection Psych: Mental Status: mental status grossly normal Objective Data Vital Signs Vital Signs: Vital Signs - 24 hr 01/14/22 09:32 01/14/22 12:00 01/14/22 13:28 Temperature Pulse Rate 88 90 88 Respiratory Rate 14 12 Blood Pressure Pulse Oximetry 01/14/22 14:30 01/14/22 16:03 01/14/22 20:00 Temperature 36.9 C Pulse Rate 83 80 105 H Respiratory Rate 18 18 Blood Pressure 134/92 H Pulse Oximetry 95 96 01/14/22 20:24 01/14/22 20:42 01/14/22 20:52 Temperature 35.8 C L Pulse Rate 100 108 H 109 H Respiratory Rate 18 18 Blood Pressure 127/74 Pulse Oximetry 95 96 01/15/22 00:00 01/15/22 01:38 01/15/22 04:00 Temperature Pulse Rate 75 90 101 H Respiratory Rate 18 Blood Pressure Pulse Oximetry 01/15/22 04:02 Temperature 36.4 C L Pulse Rate 100 Respiratory Rate 20 Blood Pressure 123/80 Pulse Oximetry 98
[2022-01-15] MEDS: FLUTICASONE/SALMETEROL 115-21 MCG INHALER 1 PUFF 2 PUFF INHALATION ×2 (08:48→20:56)
[2022-01-15] MEDS: METOPROLOL TARTRATE 25 MG TABLET PO (09:07)
[2022-01-15] MEDS: OPTI-GEN TAB 1 TABLET PO ×2 (09:07→16:43)
[2022-01-15] MEDS: ENOXAPARIN 100 MG/ML SYRINGE SUB-Q ×2 (09:07→21:00)
[2022-01-15] MEDS: CARBIDOPA/LEVODOPA 10/100 MG TABLET 1 TABLET PO ×3 (09:07→16:43)
--- NOTE | 2022-01-15 12:52 | PCOTNOTE ---
Attempted to see patient twice this date. First attempt, patient was with physical therapy. Second attempt, patient was back to bed after lunch and declined stating, I'd rather take a nap right now.
--- NOTE | 2022-01-15 14:35 | PM.IMPN ---
Progress Note: A&P Assessment and Plan (1) New onset a-fib: Code(s): I48.91 - Unspecified atrial fibrillation Status: Acute Assessment and Plan: Patient has new onset of AFib previously undiagnosed. Duration of AFib is unknown. Will obtain echocardiogram to evaluate cardiac structure and function. Patient has get been given therapeutic Lovenox. Patient started on Cardizem pushes in the ER and has been started on Cardizem p.o.. For the most part patient's heart rate has been between 90 and 110s. Cardiology has been consulted. The risks and benefits of long-term anticoagulation will need to be discussed with the patient's daughter as patient cannot give informed consent at this time with his dementia. Patient is at high risk for falls. 01/14: Echo pending, appreciate cardiology consultation 01/15: Cardiology consult recommended therapeutic Lovenox, increasing metoprolol, follow-up echo, check thyroid studies (2) COVID: Code(s): U07.1 - COVID-19 Status: Acute Assessment and Plan: 01/14: Appears to be asymptomatic, not a candidate for any kind of treatment at this time 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; F02.80 - Dementia in other diseases classified elsewhere without behavioral disturbance Status: Inactive (5) Parkinsons: Code(s): G20 - Parkinson's disease Status: Acute Assessment and Plan: Continue home medications Subjective Date/time seen: 01/15/22 14:35 Patient resting comfortably, no complaints. No chest pain shortness a breath. No nausea vomiting diarrhea. No fevers or chills. No overnight events noted. Review of Systems Review of Systems: All systems reviewed & are unremarkable except as noted in HPI and below Exam Const: General: no acute distress HENMT: Mouth: Yes moist mucous membranes Eyes: General: appearance normal, both eyes and all related structures Neck: Neck: no JVD Resp: Auscultation: clear to auscultation bilaterally Cardio: Rhythm: abnormal rhythm GI: Inspection: non-distended : Male General Exam: Yes normal external exam Skin: General skin exam: no rashes or lesions noted Psych: Mental Status: mental status grossly normal Objective Data Vital Signs Vital Signs: Vital Signs - 24 hr 01/14/22 16:03 01/14/22 20:00 01/14/22 20:24 Temperature Pulse Rate 80 105 H 100 Respiratory Rate 18 18 Blood Pressure Pulse Oximetry 96 95 01/14/22 20:42 01/14/22 20:52 01/15/22 00:00 Temperature 96.5 F L Pulse Rate 108 H 109 H 75 Respiratory Rate 18 Blood Pressure 127/74 Pulse Oximetry 96 01/15/22 01:38 01/15/22 04:00 01/15/22 04:02 Temperature 97.5 F L Pulse Rate 90 101 H 100 Respiratory Rate 18 20 Blood Pressure 123/80 Pulse Oximetry 98 01/15/22 08:00 01/15/22 08:49 01/15/22 09:07 Temperature Pulse Rate 91 122 H Respiratory Rate Blood Pressure Pulse Oximetry 95 01/15/22 12:00 Temperature Pulse Rate 84 Respiratory Rate Blood Pressure Pulse Oximetry Intake/Output Intake/Output: Intake & Output 01/12/22 01/13/22 01/14/22 01/15/22 23:59 23:59 23:59 23:59 Intake Total 2170 680 Output Total 200 Balance 1970 680 Meds/Results Medications: Active Medications Generic Name Dose Route Start Last Admin Trade Name Freq PRN Reason Stop Dose Admin Carbidopa/Levodopa 1 tablet 01/14/22 08:00 01/15/22 11:18 Carbidopa/Levodopa 10/100 Mg Tablet PO 1 tablet TIDWM NENITA Administration Enoxaparin Sodium 100 mg 01/14/22 09:00 01/15/22 09:07 Enoxaparin 100 Mg/Ml Syringe SUB-Q
--- NOTE | 2022-01-15 17:13 | PC.NURSE ---
Called Dr Uribe because patient has audible wheezing that is heard upon entering room, patient states that it is normal for him and he doesn't want any medication for the wheezing. states as long as patients sats are good, then just monitor. 02 sats are 99%
[2022-01-15] MEDS: METOPROLOL TARTRATE 50 MG TAB PO (21:02)
[2022-01-16] VITALS (13 sets, daily range): BP systolic 125–140; BP diastolic 73–83; PULSE 73–108; RESP 18–22; TEMP 36.2–36.7; O2SAT 93–99
[2022-01-16] MEDS: LEVALBUTEROL HFA (*SP) 15 GM INHALER 2 PUFF INHALATION ×4 (02:26→20:35)
[2022-01-16] MEDS: METOPROLOL TARTRATE 50 MG TAB PO ×2 (09:17→21:01)
[2022-01-16] MEDS: ENOXAPARIN 100 MG/ML SYRINGE SUB-Q ×2 (09:17→21:00)
[2022-01-16] MEDS: CARBIDOPA/LEVODOPA 10/100 MG TABLET 1 TABLET PO ×3 (09:17→16:15)
[2022-01-16] MEDS: OPTI-GEN TAB 1 TABLET PO ×2 (09:17→16:15)
[2022-01-16] MEDS: FLUTICASONE/SALMETEROL 115-21 MCG INHALER 1 PUFF 2 PUFF INHALATION ×2 (09:36→20:35)
--- NOTE | 2022-01-16 10:25 | PM.IMPN ---
Progress Note: A&P Assessment and Plan (1) New onset a-fib: Code(s): I48.91 - Unspecified atrial fibrillation Status: Acute Assessment and Plan: Patient has new onset of AFib previously undiagnosed. Duration of AFib is unknown. Follow echo. Patient has get been given therapeutic Lovenox. Patient started on Cardizem pushes in the ER and has been started on Cardizem p.o.. Uncontrolled medication adjusted by Cardiology The risks and benefits of long-term anticoagulation Anticoagulation managed by Cardio (2) COVID: Code(s): U07.1 - COVID-19 Status: Acute Assessment and Plan: Patient is complaining of cough and shortness of of breath worsening associated with wheezing will get chest x-ray CRP Probably add steroid 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; F02.80 - Dementia in other diseases classified elsewhere without behavioral disturbance Status: Inactive Assessment and Plan: PT OT eval (5) Parkinsons: Code(s): G20 - Parkinson's disease Status: Acute Assessment and Plan: Continue home medications (6) CHF exacerbation: Code(s): I50.9 - Heart failure, unspecified Status: Acute Assessment and Plan: Acute on top of chronic CHF exacerbation most likely diastolic Will give IV diuresis today re-evaluate in a.m. Check chest x-ray and BNP Additional Plan . Subjective Date/time seen: 01/16/22 10:25 Interval history: 81-year-old male with past medical history of Parkinson's, COPD and previously undiagnosed dementia who presented to the ER with weakness for 5 days. The patient's daughter was diagnosed with COVID 5-7 days ago. The patient was tested for COVID on arrival to the ER found to be positive patient has lower extremity edema shortness of breath patient also had AFib with RVR cardiology was consulted started on anticoagulation medication was adjusted Today patient is more short of breath has worsening swelling of lower extremity has bilateral wheeze Will give Inhaler treatment Will add steroid after checking CRP Checked chest x-ray Will add IV diuresis Patient feels week patient is short of breath with conversation having cough and wheeze Patient denies fever headache chest pain I am seeing the patient for shortness of breath Exam Narrative: Confused Chest bilateral crackles and wheeze Abdomen nontender nondistended CVS S1 + S2 Plus two Lower extremity edema Objective Data Vital Signs Vital Signs: Vital Signs - 24 hr 01/15/22 12:00 01/15/22 15:40 01/15/22 16:00 Temperature 97.0 F L Pulse Rate 84 98 93 Respiratory Rate 16 Blood Pressure 130/83 Pulse Oximetry 92 01/15/22 19:46 01/15/22 20:00 01/15/22 20:57 Temperature 97.7 F Pulse Rate 85 84 Respiratory Rate 17 Blood Pressure 121/76 Pulse Oximetry 96 94 01/15/22 21:02 01/16/22 00:00 01/16/22 03:50 Temperature 97.1 F L Pulse Rate 93 108 H 91 Respiratory Rate 18 Blood Pressure 135/73 Pulse Oximetry 97 01/16/22 04:00 01/16/22 08:00 01/16/22 09:17 Temperature Pulse Rate 84 99 78 Respiratory Rate Blood Pressure Pulse Oximetry 99 01/16/22 09:36 Temperature Pulse Rate Respiratory Rate Blood Pressure Pulse Oximetry 95 Intake/Output Intake/Output: Intake & Output 01/13/22 01/14/22 01/15/22 01/16/22 23:59 23:59 23:59 23:59 Intake Total 2170 920 660 Output Total 200 Balance 1970 920 660 Meds/Results Medications: Active Medications Generic Name Dose Route Start Last Admin Trade Name Freq PRN Reason Stop Dose Admin Carbidopa
--- NOTE | 2022-01-16 11:11 | PM.PNCARD ---
Progress Note: A&P Assessment and Plan (1) New onset a-fib: Code(s): I48.91 - Unspecified atrial fibrillation Status: Acute Assessment and Plan: Paroxysmal Atrial fibrillation of uncertain duration. AFib overnight, back in sinus rhythm this morning. He is unlikely to be an anticoagulation candidate given his Parkinson's and fall history but his gait stability will need to be assessed by physical therapy before discharge. His atrial fibrillation is likely brought on by his COVID infection. Enoxaparin 1 milligram/kilogram subQ q.12 hours for now while in the hospital. Rate better since metoprolol increased to 50mg b.i.d. Monitor BP and HR; BP stable. TSH and T4 WNL (2) COVID: Code(s): U07.1 - COVID-19 Status: Acute Assessment and Plan: Isolation precautions, not requiring oxygen. (3) Weakness: Code(s): R53.1 - Weakness Status: Acute Assessment and Plan: Likely related to a combination of COVID and AFib, improving (4) Parkinsons: Code(s): G20 - Parkinson's disease Status: Acute Subjective Date/time seen: 01/16/22 11:11 Interval history: Cardiology follow up for atrial fibrillation. Acute on chronic diastolic CHF. COVID +. Echo EF 55%. 01/15/2022: He's feeling well this morning. Wants to get out of bed. Does not have any chest pain, palpitations. Does have some shortness of breath but no worse than it has been. Date of Service: 01/16/2022: Feels back to normal, was up in a chair and did well with physical therapy, enjoyed the [employer] races. Remains on RA. Chest x-ray today shows some atelectasis but no significant CHF. Review of Systems Constitutional: Constitutional: Denies weakness Eyes: Eyes: Reports no additional eye complaints ENT: Denies epistaxis Cardiovascular: Cardiovascular: Denies chest pain, Denies pedal edema and Denies palpitations Respiratory: Respiratory: Denies cough and Denies dyspnea Gastrointestinal: Gastrointestinal: Denies abdominal pain Genitourinary: Genitourinary: Denies dysuria Musculoskeletal: Musculoskeletal: Reports no additional musculoskeletal complaints Integumentary/Breasts: Skin/Breast: Denies rash Neurologic: Reports confusion (History of memory loss) Psychiatric: Psychiatric: Denies behavioral changes Exam Const: General: comfortable and no acute distress Other: Lying calmly in bed, alert and in no distress HENMT: General nose exam: no epistaxis Eyes: EOM: EOMs intact bilaterally Neck: Neck: supple Resp: Effort & Inspection: normal respiratory effort Auscultation: clear to auscultation bilaterally Cardio: Rate: regular rate Rhythm: regular rhythm GI: GI Palp: Yes Soft to palpation and No Tenderness to palpation present (GI) Skin: General skin exam: normal color and no rashes or lesions noted Neuro: Cognition (Neuro): normal cognition (Except for some memory loss) Speech: normal speech Extrem: General: no edema and no pedal edema Psych: Mental Status: mental status grossly normal Affect: normal affect Objective Data Vital Signs Vital Signs: Vital Signs - 24 hr 01/15/22 12:00 01/15/22 15:40 01/15/22 16:00 Temperature 97.0 F L Pulse Rate 84 98 93 Respiratory Rate 16 Blood Pressure 130/83 Pulse Oximetry 92 01/15/22 19:46 01/15/22 20:00 01/15/22 20:57 Temperature 97.7 F Pulse Rate 85 84 Respiratory Rate 17 Blood Pressure 121/76 Pulse Oximetry 96 94 01/15/22 21:02 01/16/22 00:00 01/16/22 03:50 Temperature 97.1 F L Pulse Rate 93 108 H 91 Respiratory Rate 18 Blood Pressure 135/73 Pulse Oximetry 97 01/16/22 04:00 01/16/22 08:00 01/16/22 09:17 Temperature Pulse Rate 84 99 78 Respiratory Rate Blood Pressure Pulse Oximetry 99 01/16/22 09:36 Temperature Pulse Rate Respiratory Rate Blood Pressure Pulse Oximetry 95 Intake/Output Intake/Output: Intake & Output 01/13/22 01/14/22
[2022-01-16 11:33] LABS: CRP 1.8 mg/dL (<1.0)
[2022-01-16 11:36] LABS: NT Pro B Type Natriuretic Pept 598 pg/mL (5-100)
--- NOTE | 2022-01-16 14:53 | PCOTNOTE ---
Attempted to see patient this am, however patient unavailable with bedside testing.
[2022-01-16] MEDS: FUROSEMIDE INJ 40 MG/4 ML VIAL 20 MG IV PUSH (16:15)
[2022-01-17] VITALS (13 sets, daily range): BP systolic 128–166; BP diastolic 57–86; PULSE 71–100; RESP 18–20; TEMP 36.6–37.2; O2SAT 94–98
[2022-01-17] MEDS: LEVALBUTEROL HFA (*SP) 15 GM INHALER 2 PUFF INHALATION ×4 (03:12→20:15)
[2022-01-17 06:02] LABS: CRP 1.6 mg/dL (<1.0)
[2022-01-17] MEDS: FUROSEMIDE INJ 40 MG/4 ML VIAL 20 MG IV PUSH ×2 (08:45→16:34)
[2022-01-17] MEDS: ENOXAPARIN 100 MG/ML SYRINGE SUB-Q ×2 (08:45→21:59)
[2022-01-17] MEDS: METOPROLOL TARTRATE 50 MG TAB PO ×2 (08:46→21:59)
[2022-01-17] MEDS: CARBIDOPA/LEVODOPA 10/100 MG TABLET 1 TABLET PO ×3 (08:46→16:34)
[2022-01-17] MEDS: OPTI-GEN TAB 1 TABLET PO ×2 (08:46→16:34)
[2022-01-17] MEDS: FLUTICASONE/SALMETEROL 115-21 MCG INHALER 1 PUFF 2 PUFF INHALATION ×2 (09:11→20:15)
--- NOTE | 2022-01-17 10:23 | PM.IMPN ---
Progress Note: A&P Assessment and Plan (1) New onset a-fib: Code(s): I48.91 - Unspecified atrial fibrillation Status: Acute Assessment and Plan: Patient has new onset of AFib previously undiagnosed. Duration of AFib is unknown. Follow echo. Patient has get been given therapeutic Lovenox. Patient started on Cardizem pushes in the ER and has been started on Cardizem p.o.. Uncontrolled medication adjusted by Cardiology The risks and benefits of long-term anticoagulation Anticoagulation managed by Cardio (2) COVID: Code(s): U07.1 - COVID-19 Status: Acute Assessment and Plan: Patient is complaining of cough and shortness of of breath intermittent wheeze follow CRP consider adding steroid if CRP elevated 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; F02.80 - Dementia in other diseases classified elsewhere without behavioral disturbance Status: Inactive Assessment and Plan: PT OT eval (5) Parkinsons: Code(s): G20 - Parkinson's disease Status: Acute Assessment and Plan: Continue home medications (6) CHF exacerbation: Code(s): I50.9 - Heart failure, unspecified Status: Acute Assessment and Plan: Acute on top of chronic CHF exacerbation most likely diastolic Continue IV Lasix 2D echo shows diastolic dysfunction Reviewed chest x-ray and pending BNP Anticipate discharge in 1-2 days probably to rehab Subjective Date/time seen: 01/17/22 10:23 Interval history: 81-year-old male with past medical history of Parkinson's, COPD and previously undiagnosed dementia who presented to the ER with weakness for 5 days. The patient's daughter was diagnosed with COVID 5-7 days ago. The patient was tested for COVID on arrival to the ER found to be positive patient has lower extremity edema shortness of breath patient also had AFib with RVR cardiology was consulted started on anticoagulation therapeutic Lovenox medication was adjusted Shortness of breath has improved lower extremity swelling has improved cough and wheezing as Lexus Reviewed chest x-ray shows atelectasis Reviewed echo shows diastolic dysfunction Mitral valve regurgitation with calcification mild Patient denies fever headache chest pain I am seeing the patient for shortness of breath Objective Data Vital Signs Vital Signs: Vital Signs - 24 hr 01/16/22 12:00 01/16/22 13:58 01/16/22 16:00 Temperature 97.6 F Pulse Rate 73 80 83 Respiratory Rate 18 Blood Pressure 125/74 Pulse Oximetry 94 01/16/22 20:00 01/16/22 20:18 01/16/22 20:39 Temperature 98.1 F Pulse Rate 84 82 Respiratory Rate 22 H 22 H Blood Pressure 140/83 Pulse Oximetry 93 96 93 01/16/22 21:01 01/17/22 00:00 01/17/22 04:00 Temperature Pulse Rate 84 73 71 Respiratory Rate Blood Pressure Pulse Oximetry 01/17/22 04:47 01/17/22 08:00 01/17/22 08:46 Temperature 98.1 F Pulse Rate 83 84 100 Respiratory Rate 20 Blood Pressure 134/86 Pulse Oximetry 96 01/17/22 09:12 Temperature Pulse Rate Respiratory Rate Blood Pressure Pulse Oximetry 94 Intake/Output Intake/Output: Intake & Output 01/14/22 01/15/22 01/16/22 01/17/22 23:59 23:59 23:59 23:59 Intake Total 2170 920 1662 410 Output Total 200 Balance 0428 100 3458 410 Meds/Results Medications: Active Medications Generic Name Dose Route Start Last Admin Trade Name Freq PRN Reason Stop Dose Admin Carbidopa/Levodopa 1 tablet 01/14/22 08:00 01/17/22 08:46 Carbidopa/Levodopa 10/100 Mg Tablet PO 1 tablet TIDWM NENITA Administration Stella
[2022-01-17 10:29] LABS: Basophils Percent Auto 0.2 % (0.2-1.2); Hematocrit 34.8 % (42.0-52.0); Hemoglobin 10.8 g/dL (14.0-18.0); Immature Granulocyte Absolute 0.04 K/mm3 (0.00-0.031); Lymphocytes Absolute Auto 1.07 K/mm3 (0.9-3.2); Lymphocytes Percent Auto 25.8 % (18.3-44.2); Mean Corpuscular Hemoglobin 27.1 pg (26-34); Mean Corpuscular Volume 87.2 fl (80-100); Mean Platelet Volume 12.1 fl (7.4-10.4); Monocytes Absolute Auto 0.4 K/mm3 (0.1-0.6); Monocytes Percent Auto 8.9 % (2.6-8.5); Neutrophils Absolute Auto 2.6 K/mm3 (1.3-6.7); Neutrophils Percent Auto 63.1 % (45.5-73.1); Platelet Count Result 169 k/mm3 (150-375); Red Blood Count 3.99 M/mm3 (4.6-6.20); Red Cell Distribution Width 14.9 % (11.5-14.5); White Blood Count 4.1 K/mm3 (4.5-10.0)
[2022-01-17 10:48] LABS: Alanine Aminotransferase 22 U/L (6-50); Albumin Level 3.4 g/dL (3.5-5.1); Alkaline Phosphatase 63 U/L (38-126); Anion Gap 3 mmol/L (8-16); Aspartate Amino Transferase 41 U/L (17-59); Bilirubin,Total 0.3 mg/dL (0.2-1.3); Blood Urea Nitrogen 26 mg/dL (9-20); Calcium 8.5 mg/dL (8.4-10.2); Carbon Dioxide 26 mmol/L (22-30); Chloride 102 mmol/L (98-107); Estimated CRCL calculation 53 ml/min; Estimated Glomerular Filt Rate > 60; Glucose 100 mg/dL (65-110); Potassium 3.7 mmol/L (3.4-5.0); Sodium 131 mmol/L (137-145)
[2022-01-17 10:57] LABS: NT Pro B Type Natriuretic Pept 210 pg/mL (5-100)
--- NOTE | 2022-01-17 13:51 | PM.PNCARD ---
Progress Note: A&P Assessment and Plan (1) New onset a-fib: Code(s): I48.91 - Unspecified atrial fibrillation Status: Acute Assessment and Plan: Paroxysmal Atrial fibrillation of uncertain duration. Looks like he is remaining in NSR w/ APCs recently. He is unlikely to be an anticoagulation candidate given his Parkinson's and fall history but his gait stability will need to be assessed by physical therapy before discharge. His atrial fibrillation is likely brought on by his COVID infection. Enoxaparin 1 milligram/kilogram subQ q.12 hours for now while in the hospital. Remaining in NSR since metoprolol increased to 50mg b.i.d. Monitor BP and HR; BP stable. Still sounds like he is a fall risk. He will be doing to a SNF; perhaps after more Ph Tx he will be a better candidate for anticoagulation. Can be re-evaluated as an OPT by ourselves or Dr. Sanchez. Cont current tx; will sign off. Please let us know if further assistance is needed. (2) COVID: Code(s): U07.1 - COVID-19 Status: Acute Assessment and Plan: Isolation precautions, not requiring oxygen. (3) Weakness: Code(s): R53.1 - Weakness Status: Acute Assessment and Plan: Likely related to a combination of COVID and AFib, improving (4) Parkinsons: Code(s): G20 - Parkinson's disease Status: Acute Subjective Date/time seen: 01/17/22 13:51 Interval history: Cardiology follow up for atrial fibrillation. Acute on chronic diastolic CHF. COVID +. Echo EF 55%. 01/15/2022: He's feeling well this morning. Wants to get out of bed. Does not have any chest pain, palpitations. Does have some shortness of breath but no worse than it has been. Date of Service: 01/16/2022: Feels back to normal, was up in a chair and did well with physical therapy, enjoyed the [employer] races. Remains on RA. Chest x-ray today shows some atelectasis but no significant CHF. Date of service 01/17/2022: No new problems, remains on RA. Did fairly well with physical therapy, walked 38 ft, still needs assistance at times and verbal clues. Tele shows NSR w/ occ APCs, rate 80's. Review of Systems Constitutional: Constitutional: Denies weakness Eyes: Eyes: Reports no additional eye complaints ENT: Denies epistaxis Cardiovascular: Cardiovascular: Denies chest pain, Denies pedal edema, Denies palpitations and Denies dyspnea Respiratory: Respiratory: Denies cough and Denies dyspnea Gastrointestinal: Gastrointestinal: Denies abdominal pain Genitourinary: Genitourinary: Denies dysuria Musculoskeletal: Musculoskeletal: Reports no additional musculoskeletal complaints Integumentary/Breasts: Skin/Breast: Denies rash Neurologic: Denies behavioral changes, Reports confusion (History of memory loss) and Denies weakness Psychiatric: Psychiatric: Denies behavioral changes and Reports confusion (History of memory loss) Endocrine: Endocrine: Denies palpitations Exam Const: General: comfortable, no acute distress and confusion (History of memory loss) Orientation/consciousness: confusion (History of memory loss) Other: Sleeping, arousable, NAD HENMT: General nose exam: no epistaxis Neck: Neck: supple Resp: Effort & Inspection: normal respiratory effort Auscultation: clear to auscultation bilaterally Cardio: Rate: regular rate Rhythm: abnormal rhythm irregularly irregular GI: GI Palp: Yes Soft to palpation and No Tenderness to palpation present (GI) Skin: General skin exam: normal color and no rashes or lesions noted Neuro: General: confusion (History of memory loss) Cognition (Neuro): normal cognition (Except for some memory loss) Extrem: General: edema and no pedal edema Other: trace to mild LE edema Psych: Mental Status: mental status grossly normal Affect: No normal affect (sleepy) Objective Data Vital Signs Vital Signs: Vital Signs - 24 hr 01/16/22 13:58 01/16/22 16:00 01/16/22 20:00 Temperat
--- NOTE | 2022-01-17 14:16 | PCOTNOTE ---
Patient not seen for OT this date. Will continue OT plan of care.
[2022-01-18] VITALS (11 sets, daily range): BP systolic 115–142; BP diastolic 68–88; PULSE 71–96; RESP 17–24; TEMP 36.4–36.7; O2SAT 93–99
[2022-01-18] MEDS: LEVALBUTEROL HFA (*SP) 15 GM INHALER 2 PUFF INHALATION ×4 (01:53→22:21)
[2022-01-18 06:01] LABS: Basophils Percent Auto 0.3 % (0.2-1.2); Eosinophils Percent Auto 0.3 % (0-4.4); Hematocrit 33.2 % (42.0-52.0); Hemoglobin 10.4 g/dL (14.0-18.0); Immature Granulocyte Absolute 0.05 K/mm3 (0.00-0.031); Immature Granulocyte Percent A 0.9 % (0-0.5); Lymphocytes Absolute Auto 1.05 K/mm3 (0.9-3.2); Lymphocytes Percent Auto 18.1 % (18.3-44.2); Mean Corpuscular HGB Conc 31.3 g/dl (32-36); Mean Corpuscular Hemoglobin 27.3 pg (26-34); Mean Corpuscular Volume 87.1 fl (80-100); Mean Platelet Volume 11.3 fl (7.4-10.4); Monocytes Absolute Auto 0.4 K/mm3 (0.1-0.6); Monocytes Percent Auto 6.9 % (2.6-8.5); Neutrophils Absolute Auto 4.3 K/mm3 (1.3-6.7); Neutrophils Percent Auto 73.5 % (45.5-73.1); Platelet Count Result 168 k/mm3 (150-375); Red Blood Count 3.81 M/mm3 (4.6-6.20); Red Cell Distribution Width 14.8 % (11.5-14.5); White Blood Count 5.8 K/mm3 (4.5-10.0)
[2022-01-18 06:28] LABS: Alanine Aminotransferase 27 U/L (6-50); Albumin Level 3.5 g/dL (3.5-5.1); Alkaline Phosphatase 66 U/L (38-126); Anion Gap 6 mmol/L (8-16); Aspartate Amino Transferase 48 U/L (17-59); Bilirubin,Total 0.6 mg/dL (0.2-1.3); Blood Urea Nitrogen 25 mg/dL (9-20); CRP 1.8 mg/dL (<1.0); Calcium 8.5 mg/dL (8.4-10.2); Carbon Dioxide 31 mmol/L (22-30); Chloride 97 mmol/L (98-107); Estimated CRCL calculation 53 ml/min; Estimated Glomerular Filt Rate > 60; Glucose 113 mg/dL (65-110); Potassium 4.1 mmol/L (3.4-5.0); Sodium 134 mmol/L (137-145)
[2022-01-18] MEDS: METOPROLOL TARTRATE 50 MG TAB PO ×2 (08:32→20:42)
[2022-01-18] MEDS: FUROSEMIDE INJ 40 MG/4 ML VIAL 20 MG IV PUSH ×2 (08:32→16:35)
[2022-01-18] MEDS: CARBIDOPA/LEVODOPA 10/100 MG TABLET 1 TABLET PO ×3 (08:32→16:35)
[2022-01-18] MEDS: OPTI-GEN TAB 1 TABLET PO ×2 (08:32→16:35)
[2022-01-18] MEDS: ENOXAPARIN 100 MG/ML SYRINGE SUB-Q (08:32)
--- NOTE | 2022-01-18 10:39 | PM.IMPN ---
Progress Note: A&P Assessment and Plan (1) New onset a-fib: Code(s): I48.91 - Unspecified atrial fibrillation Status: Acute Assessment and Plan: Patient has new onset of AFib previously undiagnosed. Duration of AFib is unknown. Follow echo. Patient has get been given therapeutic Lovenox. Patient started on Cardizem pushes in the ER and has been started on Cardizem p.o.. Uncontrolled medication adjusted by Cardiology The risks and benefits of long-term anticoagulation Anticoagulation managed by Cardio large bruise on right chest wall noted. will hold anticoagulation. ct chest ordered to further evaluate. h and h is stable today. with fall risk he is at high risk for bleeding, and also remains sinus here. will stop his anticoagulation. (2) COVID: Code(s): U07.1 - COVID-19 Status: Acute Assessment and Plan: Patient is complaining of cough and shortness of of breath intermittent wheeze CRP mildly elevated not on oxygen. 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; F02.80 - Dementia in other diseases classified elsewhere without behavioral disturbance Status: Inactive Assessment and Plan: PT OT eval (5) Parkinsons: Code(s): G20 - Parkinson's disease Status: Acute Assessment and Plan: Continue home medications (6) CHF exacerbation: Code(s): I50.9 - Heart failure, unspecified Status: Acute Assessment and Plan: Acute on top of chronic CHF exacerbation most likely diastolic Continue IV Lasix 2D echo shows diastolic dysfunction Reviewed chest x-ray and BNP 210 (7) Chest wall hematoma: Code(s): S20.219A - Contusion of unspecified front wall of thorax, initial encounter Status: Acute Assessment and Plan: new h and h stable. will monitor. ct chest to evaluate. hold anticoagulation Additional Plan . Subjective Date/time seen: 01/18/22 10:39 Interval history: 81-year-old male with past medical history of Parkinson's, COPD and previously undiagnosed dementia who presented to the ER with weakness for 5 days. The patient's daughter was diagnosed with COVID 5-7 days ago. The patient was tested for COVID on arrival to the ER found to be positive patient has lower extremity edema shortness of breath patient also had AFib with RVR cardiology was consulted started on anticoagulation therapeutic Lovenox medication was adjusted 01/18/2022 he reports soreness in his rigth shoudler .nofe brittaney, chills. he reports weakness.s ob on exertion. no swelling in legs. denies chest pain Review of Systems Review of Systems: All systems reviewed & are unremarkable except as noted in HPI and below Exam Narrative: GENERAL: The patient is well developed, not in acute distress HEENT: Nonicteric sclerae, PERRLA, EOMI. Oropharynx clear. Moist mucous membranes. Conjunctivae appear well perfused. CHEST: Chest wall with right sided swelling with bruising noted HEART: Regular rate and rhythm without murmur, rubs, or gallops LUNGS: diminsed breath sounds bilaterally. no respiratory distress, mild expiratory wheezing noted ABDOMEN: Soft, positive bowel sounds, non-tender, no organomegaly. SKIN: No rash, no excessive bruising, petechiae, or purpura. NEUROLOGIC: Cranial nerves II-XII intact, alert and conversant, no gross motor deficits EXTREMITIES: no edema, cyanosis or clubbing Objective Data Vital Signs Vital Signs: Vital Signs - 24 hr 01/17/22 12:00 01/17/22 15:00 01/17/22 16:00 Temperature 97.8 F Pulse Rate 84 86 83 Respiratory Rate 18 Blood Pressure 128/84 Pulse Oximetry 98 0
--- NOTE | 2022-01-18 14:35 | PCRCNOTE ---
Window of time for tx will continue as scheduled.
[2022-01-19] VITALS (23 sets, daily range): BP systolic 95–118; BP diastolic 49–78; PULSE 75–150; RESP 16–26; TEMP 36.1–37.5; O2SAT 95–100; BMI 11.0
[2022-01-19 02:02] LABS: Hematocrit 27.2 % (42.0-52.0); Hemoglobin 8.4 g/dL (14.0-18.0)
[2022-01-19] MEDS: LEVALBUTEROL HFA (*SP) 15 GM INHALER 2 PUFF INHALATION ×4 (02:27→21:00)
--- NOTE | 2022-01-19 04:12 | PC.NURSE ---
0330 discussed with pt need for blood transfusion, pt states ok. daughter called earlier to get consent signed since pt confused at times. Informed daughter of hematoma.
[2022-01-19] MEDS: FUROSEMIDE INJ 40 MG/4 ML VIAL 20 MG IV PUSH (08:32)
[2022-01-19] MEDS: METOPROLOL TARTRATE 50 MG TAB PO ×2 (08:33→20:32)
[2022-01-19] MEDS: CARBIDOPA/LEVODOPA 10/100 MG TABLET 1 TABLET PO ×3 (08:33→16:48)
[2022-01-19] MEDS: OPTI-GEN TAB 1 TABLET PO ×2 (08:34→16:48)
[2022-01-19] MEDS: FLUTICASONE/SALMETEROL 115-21 MCG (*SP) INHALER 2 PUFF INHALATION ×2 (08:51→21:00)
[2022-01-19 10:07] LABS: Basophils Percent Auto 0.2 % (0.2-1.2); Hematocrit 27.5 % (42.0-52.0); Hemoglobin 8.8 g/dL (14.0-18.0); Immature Granulocyte Absolute 0.13 K/mm3 (0.00-0.031); Immature Granulocyte Percent A 1.1 % (0-0.5); Lymphocytes Absolute Auto 1.26 K/mm3 (0.9-3.2); Lymphocytes Percent Auto 10.6 % (18.3-44.2); Mean Corpuscular Hemoglobin 27.8 pg (26-34); Mean Corpuscular Volume 86.8 fl (80-100); Mean Platelet Volume 11.8 fl (7.4-10.4); Monocytes Absolute Auto 0.7 K/mm3 (0.1-0.6); Monocytes Percent Auto 6.2 % (2.6-8.5); Neutrophils Absolute Auto 9.7 K/mm3 (1.3-6.7); Neutrophils Percent Auto 81.9 % (45.5-73.1); Nucleated Red Blood Cells Perc 0.3 % (0.0-0.2); Platelet Count Result 197 k/mm3 (150-375); Red Blood Count 3.17 M/mm3 (4.6-6.20); Red Cell Distribution Width 14.8 % (11.5-14.5); White Blood Count 11.9 K/mm3 (4.5-10.0)
--- NOTE | 2022-01-19 10:19 | PCOTNOTE ---
Attempted to see patient this am, however allowed patient to rest at this time due to icing (R) pectoral region from swelling. Pt also awaiting blood transfusion.
[2022-01-19 10:25] LABS: Alanine Aminotransferase 20 U/L (6-50); Albumin Level 3.2 g/dL (3.5-5.1); Alkaline Phosphatase 53 U/L (38-126); Anion Gap 11 mmol/L (8-16); Aspartate Amino Transferase 45 U/L (17-59); Bilirubin,Total 1.1 mg/dL (0.2-1.3); Blood Urea Nitrogen 45 mg/dL (9-20); Calcium 8.4 mg/dL (8.4-10.2); Carbon Dioxide 23 mmol/L (22-30); Chloride 97 mmol/L (98-107); Estimated CRCL calculation 30 ml/min; Estimated Glomerular Filt Rate 36; Glucose 192 mg/dL (65-110); Potassium 4.7 mmol/L (3.4-5.0); Sodium 131 mmol/L (137-145)
[2022-01-19 11:39] LABS: Glucose Point of Care 200 mg/dl (65-105)
[2022-01-19 14:39] LABS: Alveolar/Arterial O2 Gradient 34.2 mmHg; Base Excess ABG -0.7 mEq/l (+/-2.0); Device ROOM AIR; Fractional Inspired Oxygen 21 %; HCO3 ABG 22.6 mEq/l (22.0-26.0); Modified Allen's Test Pass; Oxygen Content ABG 12.6 %vol (16.0-22.0); Oxygen Saturation ABG 96.2 % (95.0-100.0); Oxyhemoglobin 93.4 % THb (90.0-100.0); PCO2 ABG 32.3 mmHg (35.0-45.0); PO2 ABG 76.9 mmHg (80.0-100.0); PO2 FiO2 Ratio Arterial Blood 3.66 %; Site Drawn RIGHT RADIAL; Total Hemoglobin 9.5 g/dL (12.0-18.0); pH ABG 7.463 (7.350-7.450)
[2022-01-19] MEDS: SODIUM CHLORIDE 0.9% IV 1,000 ML 100 ML IV CONT (14:56)
--- NOTE | 2022-01-19 15:16 | PM.IMPN ---
Progress Note: A&P Assessment and Plan (1) New onset a-fib: Code(s): I48.91 - Unspecified atrial fibrillation Status: Acute Assessment and Plan: Patient has new onset of AFib previously undiagnosed. Duration of AFib is unknown. Follow echo. Patient has get been given therapeutic Lovenox. Patient started on Cardizem pushes in the ER and has been started on Cardizem p.o.. Uncontrolled medication adjusted by Cardiology The risks and benefits of long-term anticoagulation Anticoagulation managed by Cardio large bruise on right chest wall noted. will hold anticoagulation. ct chest ordered to further evaluate. h and h is stable today. with fall risk he is at high risk for bleeding, and also remains sinus here. stopped his anticoagulation with ongoing drop in H&H and large hematoma in right chest wall (2) COVID: Code(s): U07.1 - COVID-19 Status: Acute Assessment and Plan: Patient is complaining of cough and shortness of of breath intermittent wheeze CRP mildly elevated not on oxygen. 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; F02.80 - Dementia in other diseases classified elsewhere without behavioral disturbance Status: Inactive Assessment and Plan: PT OT eval (5) Parkinsons: Code(s): G20 - Parkinson's disease Status: Acute Assessment and Plan: Continue home medications (6) CHF exacerbation: Code(s): I50.9 - Heart failure, unspecified Status: Acute Assessment and Plan: Acute on top of chronic CHF exacerbation most likely diastolic Continue IV Lasix 2D echo shows diastolic dysfunction Reviewed chest x-ray and BNP 210 Worsen renal function today will hold diuresis (7) Chest wall hematoma: Code(s): S20.219A - Contusion of unspecified front wall of thorax, initial encounter Status: Acute Assessment and Plan: new h and h stable. will monitor. ct chest to evaluate. hold anticoagulation Acute blood loss anemia transfused 1 unit PRBC 01/19/2022 Continue to monitor H&H and transfuse p.r.n. General surgery consultation for any surgical intervention (8) Acute blood loss anemia: Code(s): D62 - Acute posthemorrhagic anemia Status: Acute Assessment and Plan: transfuse p.r.n. Transfuse 1 unit of PRBC 01/19/2022 (9) Acute renal failure: Code(s): N17.9 - Acute kidney failure, unspecified Status: Acute Assessment and Plan: creatinine bumped up to 1.8 Check urine studies Check bladder scan Start IV fluid resuscitation (10) Acute encephalopathy: Code(s): G93.40 - Encephalopathy, unspecified Status: Acute Assessment and Plan: his more confused today likely due to metabolic toxic encephalopathy Check ABG which showed no hypercapnia Underlying renal failure Ongoing bleeding Continue to monitor Additional Plan . Subjective Date/time seen: 01/19/22 15:16 Interval history: 81-year-old male with past medical history of Parkinson's, COPD and previously undiagnosed dementia who presented to the ER with weakness for 5 days. The patient's daughter was diagnosed with COVID 5-7 days ago. The patient was tested for COVID on arrival to the ER found to be positive patient has lower extremity edema shortness of breath patient also had AFib with RVR cardiology was consulted started on anticoagulation therapeutic Lovenox medication was adjusted 01/18/2022 he reports soreness in his rigth shoudler .nofe brittaney, chills. he reports weakness.s ob on exertion. no swelling in legs. denies chest pain 01/19/2022 events noted from overnig
[2022-01-19 16:05] LABS: INR 1.2; Prothrombin Time 14.4 Seconds (11.1-14.7)
[2022-01-19 16:06] LABS: Partial Thromboplastin Time 29.1 SECONDS (22.3-36.8)
--- NOTE | 2022-01-19 16:15 | PM.CNGS ---
Assessment and Plan Assessment and plan (1) Chest wall hematoma: Code(s): S20.219A - Contusion of unspecified front wall of thorax, initial encounter Status: Acute Assessment and Plan: stable, agree c serial H/H, check coags, cont to hold anticoagulation, if cont to bleed will need CTA (2) Acute blood loss anemia: Code(s): D62 - Acute posthemorrhagic anemia Status: Acute Assessment and Plan: see above, blood products as necessary (3) Acute renal failure: Code(s): N17.9 - Acute kidney failure, unspecified Status: Acute Assessment and Plan: mgmt per primary team (4) Parkinsons: Code(s): G20 - Parkinson's disease Status: Acute Assessment and Plan: stable, seems to be baseline dementia (5) COVID: Code(s): U07.1 - COVID-19 Status: Acute Assessment and Plan: stable, precautions History of Present Illness Consult details Consult date: 01/19/22 Reason for consult: other (chest hematoma) Requesting physician: Anthony Charles MD Narrative: Pt is a 81 y/o M c multiple med issues including Parkinsons' presenting c COVID, SOB. Pt has been subsequently admitted to hospitalist service. Pt was found to be in Afib and subsequently anticoagulated. Pt then developed significant L chest wall hematoma. Pt noted to have approx 2 gm drop in Hgb and has been given a unit so far. Pt cont to be somewhat confused but this is apparently his baseline. Pt now in sinus rhythm and anticoagulation has been discontinued. Review of Systems Review of Systems: ROS unobtainable: Yes unobtainable due to mental status PMFSH Past Medical History Medical History Bilateral cataracts COPD (chronic obstructive pulmonary disease) Dementia associated with Parkinson's disease Macular degeneration Parkinsons Surgical History Surgical History Surgical history unknown Family History Family History Grandparent Diabetes mellitus Father Malignant neoplasm of prostate Mother Diabetes mellitus Sibling Axonal GBS (Guillain-King syndrome) Social History Social History Social History: Code status: Full code Surrogate decision maker: Daughter Smoking status: Never smoker Alcohol intake: never Substance use: never Substance use type: does not use Living arrangements: alone Spiritual care concerns: No Meds Home Medications and Allergies Home Medications Medication Instructions Recorded Confirmed Type carbidopa-levodopa 1 tablet PO TID 01/13/22 01/13/22 History fluticasone furoate-vilanterol 1 inh INHALATION DAILY 01/13/22 01/13/22 History [Breo Ellipta] vit C,E-Ax-ncxla-lutein-zeaxan 1 tablet PO BID 01/13/22 01/13/22 History [PreserVision AREDS-2] Allergies Allergy/AdvReac Type Severity Reaction Status Date / Time No Known Allergies Allergy Verified 01/13/22 22:48 Vital Signs Vital Signs - 24 hr 01/18/22 20:00 01/18/22 20:42 01/18/22 22:21 Temperature 36.7 C Pulse Rate 90 72 Respiratory Rate 24 H Blood Pressure 115/77 Pulse Oximetry 94 93 01/19/22 00:00 01/19/22 01:00 01/19/22 04:00 Temperature 37.5 C Pulse Rate 81 80 82 Respiratory Rate 22 H 24 H Blood Pressure 101/78 104/60 Pulse Oximetry 100 100 01/19/22 04:15 01/19/22 05:15 01/19/22 06:00 Temperature 37.5 C 37.4 C 37.2 C Pulse Rate 85 85 87 Respiratory Rate 24 H 24 H 26 H Blood Pressure 95/51 L 102/52 L 118/49 L Pulse Oximetry 100 100 100 01/19/22 06:15 01/19/22 06:44 01/19/22 08:03 Temperature 37.2 C 36.1 C L Pulse Rate 87 85 89 Respiratory Rate 26 H 24 H Blood Pressure 118/49 L 109/59 L Pulse Oximetry 100 100 01/19/22 08:33 01/19/22 08:34 01/19/22 08:51 Temperature Pulse Rat
[2022-01-19 19:08] LABS: Hematocrit 24.4 % (42.0-52.0)
[2022-01-19] MEDS: METOPROLOL TARTRATE INJ 5 MG/5 ML VIAL IV PUSH (22:36)
[2022-01-19 22:52] LABS: Add Urine Microscopic? YES; Appearance Urine Clear (Clear); Bilirubin Urine 1+ (Negative); Blood Urine Negative (Negative); Color Urine Yellow (Yellow); Glucose Urine UA Negative (Negative); Ketones Urine Trace mg/dL (Negative); Leukocyte Esterase Ur Negative LEU/UL (NEGATIVE); Nitrate Urine Negative (Negative); Protein Urine Negative (Negative); Specific Grav Ur >= 1.030 (1.001-1.035)
[2022-01-19 23:17] LABS: Bacteria Urine Trace /hpf; RBC Urine 0-2 /hpf (0-2); Squamous Epithelial Cell Urine Rare /hpf (Few); WBC Urine 0-3 /hpf (0-3)
[2022-01-19 23:27] LABS: Creatinine Urine > 346.5 mg/dL; Sodium Urine Random 10 meq/L
[2022-01-20] VITALS (25 sets, daily range): BP systolic 106–140; BP diastolic 63–91; PULSE 73–150; RESP 16–20; TEMP 35.9–38.3; O2SAT 92–100
[2022-01-20 01:28] LABS: Hematocrit 22.4 % (42.0-52.0); Hemoglobin 7.3 g/dL (14.0-18.0)
[2022-01-20] MEDS: LEVALBUTEROL HFA (*SP) 15 GM INHALER 2 PUFF INHALATION ×4 (01:43→19:16)
[2022-01-20] MEDS: SODIUM CHLORIDE 0.9% IV 250 ML 30 ML IV CONT (02:40)
[2022-01-20] MEDS: SODIUM CHLORIDE 0.9% IV 1,000 ML 100 ML IV CONT ×2 (05:40→16:37)
--- NOTE | 2022-01-20 06:24 | PC.NURSE ---
Spoke with pt's daughter this morning who was checking in on how he was doing. She was wanting to know if isolation could be lifted since it has been 10 days. Tried to request if she could come see him. Spoke with sound technician supervisor unable to approve visitation until isolation is actually removed. Will leave message with dayshift nurse to have him call.
[2022-01-20 06:37] LABS: Basophils Percent Auto 0.1 % (0.2-1.2); Hematocrit 26.2 % (42.0-52.0); Hemoglobin 8.5 g/dL (14.0-18.0); Immature Granulocyte Absolute 0.23 K/mm3 (0.00-0.031); Immature Granulocyte Percent A 1.5 % (0-0.5); Lymphocytes Absolute Auto 1.47 K/mm3 (0.9-3.2); Lymphocytes Percent Auto 9.7 % (18.3-44.2); Mean Corpuscular HGB Conc 32.4 g/dl (32-36); Mean Corpuscular Hemoglobin 28.2 pg (26-34); Mean Platelet Volume 11.5 fl (7.4-10.4); Monocytes Absolute Auto 1.3 K/mm3 (0.1-0.6); Monocytes Percent Auto 8.7 % (2.6-8.5); Neutrophils Absolute Auto 12.2 K/mm3 (1.3-6.7); Platelet Count Result 179 k/mm3 (150-375); Red Blood Count 3.01 M/mm3 (4.6-6.20); Red Cell Distribution Width 14.7 % (11.5-14.5); White Blood Count 15.2 K/mm3 (4.5-10.0)
[2022-01-20 06:51] LABS: Alanine Aminotransferase 22 U/L (6-50); Alkaline Phosphatase 47 U/L (38-126); Anion Gap 9 mmol/L (8-16); Aspartate Amino Transferase 57 U/L (17-59); Blood Urea Nitrogen 69 mg/dL (9-20); Carbon Dioxide 26 mmol/L (22-30); Chloride 100 mmol/L (98-107); Estimated CRCL calculation 22 ml/min; Estimated Glomerular Filt Rate 25; Glucose 117 mg/dL (65-110); Potassium 4.7 mmol/L (3.4-5.0); Sodium 135 mmol/L (137-145)
[2022-01-20] MEDS: CARBIDOPA/LEVODOPA 10/100 MG TABLET 1 TABLET PO ×3 (08:03→16:15)
[2022-01-20] MEDS: OPTI-GEN TAB 1 TABLET PO ×2 (08:03→16:15)
[2022-01-20] MEDS: METOPROLOL TARTRATE 50 MG TAB PO ×2 (08:03→20:47)
[2022-01-20] MEDS: FLUTICASONE/SALMETEROL 115-21 MCG (*SP) INHALER 2 PUFF INHALATION ×2 (08:12→19:16)
--- NOTE | 2022-01-20 10:04 | PM.CNNEP ---
Assessment and Plan Additional Plan 1. Zaheer has acute kidney injury. He was on diuretics earlier this hospital stay. He has not been eating very well. And now he has the hematoma with a significant drop in hemoglobin. His urine sodium is low, all consistent with pre renal azotemia. Will check a renal ultrasound to be sure there is no obstruction. He is getting some IV fluids. 2.SDAT the patient does not interact very well. 3. COPD he is on supportive care 4. COVID the patient has normal oxygen status. 5. Anemia following H and H and transfuse as needed we can check iron levels. 6. Sodium level slightly low. this is most likely due to prerenal factors. History of Present Illness Reason for Consult Consult date: 01/20/22 Chief Complaint Chief complaint: new onset afib History of Present Illness Narrative: Zaheer is a very pleasant 81-year-old gentleman who has dementia, COPD, cataracts, Parkinson's, who lives alone. The patient came in with weakness. He was evaluated in the emergency room and found to have atrial fibrillation and also COVID. He was seen by Cardiology. He was treated with diltiazem And then metoprolol. He never required much oxygen for the COVID. He was on it briefly but now is off of it. Because of the atrial fibrillation he was placed on anticoagulants. The knee had a large subcutaneous bleed in the right chest. He has received 2units of blood. Surgery is seeing the patient. In the last couple of days the patient's creatinine faith from 1.0 to 1.8 to 2.5. renal consultation was requested. He cannot give much of a history. He answers a few yes no questions but that is all. He does not seem to may be in much discomfort from the hematoma. He was on diuretics earlier this hospital stay. He has not received any contrast. Has no history of kidney disease. No history of bloody urine, kidney stones, or bladder infections. Review of Systems Review of Systems: ROS unobtainable: Yes unobtainable due to medical condition PMF Past Medical History Medical History Bilateral cataracts COPD (chronic obstructive pulmonary disease) Dementia associated with Parkinson's disease Macular degeneration Parkinsons Surgical History Surgical History Surgical history unknown Family History Family History Grandparent Diabetes mellitus Father Malignant neoplasm of prostate Mother Diabetes mellitus Sibling Axonal GBS (Guillain-[place] syndrome) Social History Social History Social History: Code status: Full code Surrogate decision maker: Daughter Smoking status: Never smoker Alcohol intake: never Substance use: never Substance use type: does not use Living arrangements: alone Spiritual care concerns: No Meds Home Medications and Allergies Home Medications Medication Instructions Recorded Confirmed Type carbidopa-levodopa 1 tablet PO TID 01/13/22 01/13/22 History fluticasone furoate-vilanterol 1 inh INHALATION DAILY 01/13/22 01/13/22 History [Breo Ellipta] vit C,P-En-lfctc-lutein-zeaxan 1 tablet PO BID 01/13/22 01/13/22 History [PreserVision AREDS-2] Allergies Allergy/AdvReac Type Severity Reaction Status Date / Time No Known Allergies Allergy Verified 01/13/22 22:48 Vital Signs Vital Signs - 24 hr 01/19/22 12:01 01/19/22 14:10 01/19/22 16:03 Temperature 36.7 C Pulse Rate 79 75 79 Respiratory Rate 16 Blood Pressure 111/63 Pulse Oximetry 100 01/19/22 20:00 01/19/22 20:17 01/19/22 20:32 Temperature 36.2 C L Pulse Rate 134 H 140 H 150 H Respiratory Rate 22 H Blood Pressure 106/67 Pulse Oximetry 98 01/19/22 21:00 01/19/22 22:09 01/19/22 22:25 Temperature Pulse Rate 135 H 13
--- NOTE | 2022-01-20 10:25 | PM.PNGS ---
Progress Note: A&P Assessment and Plan (1) Chest wall hematoma: Code(s): S20.219A - Contusion of unspecified front wall of thorax, initial encounter Status: Acute Assessment and Plan: stable, has received total of 2 units PRBCs, coags normal, cont supportive care at this point, serial H/H Subjective Subjective Date/Time Seen: 01/20/22 10:25 received 1 u PRBC overnight, no c/o Review of Systems Review of Systems: All systems reviewed & are unremarkable except as noted in HPI and below Exam Const: General: cooperative, comfortable and no acute distress Chest: Other: large L chest wall hematoma unchanged Resp: Effort & Inspection: normal respiratory effort Auscultation: diminished lung sounds Cardio: Rate: regular rate Rhythm: regular rhythm GI: Inspection: normal to inspection and non-distended GI Palp: Yes Soft to palpation and No Tenderness to palpation present (GI) Objective Data Vital Signs Vital Signs: Vital Signs - 24 hr 01/19/22 12:01 01/19/22 14:10 01/19/22 16:03 Temperature 36.7 C Pulse Rate 79 75 79 Respiratory Rate 16 Blood Pressure 111/63 Pulse Oximetry 100 01/19/22 20:00 01/19/22 20:17 01/19/22 20:32 Temperature 36.2 C L Pulse Rate 134 H 140 H 150 H Respiratory Rate 22 H Blood Pressure 106/67 Pulse Oximetry 98 01/19/22 21:00 01/19/22 22:09 01/19/22 22:25 Temperature Pulse Rate 135 H 130 H Respiratory Rate Blood Pressure Pulse Oximetry 96 01/19/22 22:36 01/19/22 23:00 01/20/22 00:00 Temperature Pulse Rate 140 H 80 81 Respiratory Rate Blood Pressure Pulse Oximetry 01/20/22 02:39 01/20/22 02:55 01/20/22 03:36 Temperature 35.9 C L 36.2 C L 36.1 C L Pulse Rate 77 77 80 Respiratory Rate 20 20 20 Blood Pressure 110/63 140/91 H 118/67 Pulse Oximetry 98 98 96 01/20/22 03:50 01/20/22 03:55 01/20/22 04:00 Temperature 36.1 C L 36.3 C L Pulse Rate 115 H 81 78 Respiratory Rate 20 20 Blood Pressure 110/72 121/65 Pulse Oximetry 96 99 01/20/22 05:45 01/20/22 08:00 01/20/22 08:03 Temperature 36.3 C L Pulse Rate 81 76 81 Respiratory Rate 20 Blood Pressure 121/65 Pulse Oximetry 99 01/20/22 08:19 01/20/22 10:16 Temperature Pulse Rate 78 Respiratory Rate 18 Blood Pressure Pulse Oximetry 95 Intake/Output Intake/Output: Intake & Output 01/17/22 01/18/22 01/19/22 01/20/22 23:59 23:59 23:59 23:59 Intake Total 770 1454 1032 1350 Output Total 100 Balance 670 1454 1032 1350 Meds/Results Medications: Active Medications Generic Name Dose Route Start Last Admin Trade Name Freq PRN Reason Stop Dose Admin Carbidopa/Levodopa 1 tablet 01/14/22 08:00 01/20/22 08:03 Carbidopa/Levodopa 10/100 Mg Tablet PO 1 tablet TIDWM NENITA Administration Sodium Chloride 1,000 mls @ 100 mls/hr 01/19/22 14:20 01/20/22 05:40 Normal Saline Iv IV CONT 100 mls/hr .Q10H NENITA Administration Levalbuterol HCl 2 puff 01/14/22 02:00 01/20/22 08:11 Levalbuterol Hfa (*Sp) 15 Gm Inhaler INHALATION 2 puff Q6HRT NENITA Administration Metoprolol Tartrate 50 mg 01/15/22 21:00 01/20/22 08:03 Metoprolol Tartrate 50 Mg Tab PO 50 mg Q12HR NENITA Administration Multivitamins/Minerals 1 tablet 01/14/22 09:00 01/20/22 08:03 Opti-Gen Tab PO 1 tablet BID NENITA Administration Perflutren Lipid Microsphere 0 ml 01/13/22 20:45 Perflutren Lipid Microspheres 1.5 Ml Vial Diluted To 10 Ml Total Volume IV PUSH ONCE PRN adequate visualization Protocol Fluticasone/Salmeterol 2 puff 01/19/22 08:00 01/20/22 08:12 Fluticasone/Salmeterol 115-21 Mcg (*Sp) Inhaler INHALATION 2 puff Q12HRT NENITA Administration Radiology Results: ITS Impressions Head CT 01/13/22 18:27 IMPRESSION: No acute intracranial process. Findings suggestive of chronic sinusitis as described above. Chest CT 01/18/22 11:36 IMPRESSION: 1. Asymmetric enlargement of th
--- NOTE | 2022-01-20 10:37 | PM.IMPN ---
Progress Note: A&P Assessment and Plan (1) New onset a-fib: Code(s): I48.91 - Unspecified atrial fibrillation Status: Acute Assessment and Plan: Patient has new onset of AFib previously undiagnosed. Duration of AFib is unknown. Follow echo. Patient has get been given therapeutic Lovenox. Patient started on Cardizem pushes in the ER and has been started on Cardizem p.o.. Uncontrolled medication adjusted by Cardiology The risks and benefits of long-term anticoagulation Anticoagulation managed by Cardio large bruise on right chest wall noted. will hold anticoagulation. ct chest revealed right pectoralis major intramuscular hematoma has required transfusion with fall risk he is at high risk for bleeding and with ongoing bleeding will stop anticoagulation off note he also remains in sinus rhythm since admission (2) COVID: Code(s): U07.1 - COVID-19 Status: Acute Assessment and Plan: Patient is complaining of cough and shortness of of breath intermittent wheeze CRP mildly elevated not on oxygen. 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; F02.80 - Dementia in other diseases classified elsewhere without behavioral disturbance Status: Inactive Assessment and Plan: PT OT eval (5) Parkinsons: Code(s): G20 - Parkinson's disease Status: Acute Assessment and Plan: Continue home medications (6) CHF exacerbation: Code(s): I50.9 - Heart failure, unspecified Status: Acute Assessment and Plan: Acute on top of chronic CHF exacerbation most likely diastolic Continue IV Lasix 2D echo shows diastolic dysfunction Reviewed chest x-ray and BNP 210 Worsen renal functionwill hold diuresis (7) Chest wall hematoma: Code(s): S20.219A - Contusion of unspecified front wall of thorax, initial encounter Status: Acute Assessment and Plan: new h and h stable. will monitor. ct chest to evaluate. hold anticoagulation Acute blood loss anemia transfused 1 unit PRBC 01/19/2022 Continue to monitor H&H and transfuse p.r.n. General surgery consultation for any surgical intervention discussed with General surgery (8) Acute blood loss anemia: Code(s): D62 - Acute posthemorrhagic anemia Status: Acute Assessment and Plan: transfuse p.r.n. Transfuse 1 unit of PRBC 01/19/2022 (9) Acute renal failure: Code(s): N17.9 - Acute kidney failure, unspecified Status: Acute Assessment and Plan: creatinine bumped up to 1.8 urine sodium low at 10 bland urinalysis bladder scan had only 120 cc 01/19/2022 ruling out urinary retention Started on normal saline 100 cc an hour Creatinine continues to worse in to 2.5 today Renal ultrasound Will place a Petersen catheter in for correct Intake and output Renal consultation, discussed with him (10) Acute encephalopathy: Code(s): G93.40 - Encephalopathy, unspecified Status: Acute Assessment and Plan: his more confused today likely due to metabolic toxic encephalopathy Check ABG which showed no hypercapnia Underlying renal failure Ongoing bleeding Continue to monitor Supportive treatment Subjective Date/time seen: 01/20/22 10:37 Interval history: 81-year-old male with past medical history of Parkinson's, COPD and previously undiagnosed dementia who presented to the ER with weakness for 5 days. The patient's daughter was diagnosed with COVID 5-7 days ago. The patient was tested for COVID on arrival to the ER found to be positive patient has lower extremity edema shortness of breath patient also had AFib with
[2022-01-20 12:29] LABS: Hemoglobin 8.2 g/dL (14.0-18.0)
[2022-01-20 12:47] LABS: Creatine Kinase 1553 U/L (55-170); Iron 20 ug/dL (49-181)
[2022-01-20 12:56] LABS: Percent Iron Saturation 7 % (20-50)
[2022-01-20 13:52] LABS: Folic Acid 9.1 ng/mL (2.76->20)
--- NOTE | 2022-01-20 18:56 | ECG_ITS ---
Measurements Intervals [place] Rate: 107 P: AR: 0 QRS: -5 QRSD: 82 T: 4 QT: 299 QTc: 400 Interpretive Statements ATRIAL FIBRILLATION WITH RAPID VENTRICULAR RESPONSE EARLY PRECORDIAL R/S TRANSITION BORDERLINE T WAVE ABNORMALITY- INFERIOR LEADS BASELINE ARTIFACT- I, II, III, AVF ABNORMAL ECG Electronically Signed On 01-21-2022 7:51:34 CDT by Vinh Humphreys D.O.
[2022-01-20 19:25] LABS: Basophils Percent Auto 0.1 % (0.2-1.2); Hematocrit 24.9 % (42.0-52.0); Immature Granulocyte Absolute 0.23 K/mm3 (0.00-0.031); Immature Granulocyte Percent A 1.7 % (0-0.5); Lymphocytes Absolute Auto 1.11 K/mm3 (0.9-3.2); Mean Corpuscular HGB Conc 32.1 g/dl (32-36); Mean Corpuscular Hemoglobin 28.2 pg (26-34); Mean Corpuscular Volume 87.7 fl (80-100); Mean Platelet Volume 10.7 fl (7.4-10.4); Monocytes Absolute Auto 1.2 K/mm3 (0.1-0.6); Monocytes Percent Auto 8.8 % (2.6-8.5); Neutrophils Absolute Auto 11.3 K/mm3 (1.3-6.7); Neutrophils Percent Auto 81.4 % (45.5-73.1); Platelet Count Result 165 k/mm3 (150-375); Red Blood Count 2.84 M/mm3 (4.6-6.20); Red Cell Distribution Width 14.6 % (11.5-14.5); White Blood Count 13.9 K/mm3 (4.5-10.0)
[2022-01-20] MEDS: METOPROLOL TARTRATE INJ 5 MG/5 ML VIAL IV PUSH (19:26)
[2022-01-20 19:37] LABS: Anion Gap 6 mmol/L (8-16); Blood Urea Nitrogen 72 mg/dL (9-20); Carbon Dioxide 27 mmol/L (22-30); Chloride 97 mmol/L (98-107); Estimated CRCL calculation 26 ml/min; Estimated Glomerular Filt Rate 30; Glucose 122 mg/dL (65-110); Potassium 4.5 mmol/L (3.4-5.0); Sodium 130 mmol/L (137-145)
[2022-01-20] MEDS: ACETAMINOPHEN 325 MG TABLET 650 MG PO (21:19)
[2022-01-21] VITALS (25 sets, daily range): BP systolic 93–122; BP diastolic 50–79; PULSE 80–144; RESP 20–26; TEMP 36.3–37.2; O2SAT 93–100
[2022-01-21] MEDS: FUROSEMIDE INJ 40 MG/4 ML VIAL IV PUSH (00:23)
[2022-01-21] MEDS: LEVALBUTEROL HFA (*SP) 15 GM INHALER 2 PUFF INHALATION ×4 (02:49→20:45)
[2022-01-21] MEDS: METOPROLOL TARTRATE INJ 5 MG/5 ML VIAL IV PUSH (04:30)
--- NOTE | 2022-01-21 05:18 | PC.NURSE ---
Received report from KURT Ramirez at 0505. Patient arrived on IMU at 0518 on 01/21/22 room 232.
[2022-01-21] MEDS: dilTIAZem 100 MG/100 ML 100 MG/100 ML BAG IV CONT (06:19)
[2022-01-21 06:28] LABS: Hematocrit 22.4 % (42.0-52.0); Hemoglobin 7.5 g/dL (14.0-18.0); Mean Corpuscular HGB Conc 33.5 g/dl (32-36); Mean Corpuscular Hemoglobin 28.6 pg (26-34); Mean Corpuscular Volume 85.5 fl (80-100); Mean Platelet Volume 10.5 fl (7.4-10.4); Platelet Count Result 161 k/mm3 (150-375); Red Blood Count 2.62 M/mm3 (4.6-6.20); Red Cell Distribution Width 14.6 % (11.5-14.5); White Blood Count 11.3 K/mm3 (4.5-10.0)
[2022-01-21 06:44] LABS: Alanine Aminotransferase 25 U/L (6-50); Albumin Level 2.8 g/dL (3.5-5.1); Alkaline Phosphatase 46 U/L (38-126); Anion Gap 7 mmol/L (8-16); Aspartate Amino Transferase 63 U/L (17-59); Bilirubin,Total 1.3 mg/dL (0.2-1.3); Blood Urea Nitrogen 66 mg/dL (9-20); Calcium 8.1 mg/dL (8.4-10.2); Carbon Dioxide 28 mmol/L (22-30); Chloride 100 mmol/L (98-107); Estimated CRCL calculation 30 ml/min; Estimated Glomerular Filt Rate 36; Glucose 105 mg/dL (65-110); Phosphorus 3.7 mg/dL (2.5-4.5); Potassium 4.2 mmol/L (3.4-5.0); Sodium 135 mmol/L (137-145)
[2022-01-21] MEDS: FLUTICASONE/SALMETEROL 115-21 MCG (*SP) INHALER 2 PUFF INHALATION ×2 (08:06→20:45)
--- NOTE | 2022-01-21 08:10 | PM.PNGS ---
Progress Note: A&P Assessment and Plan (1) Chest wall hematoma: Code(s): S20.219A - Contusion of unspecified front wall of thorax, initial encounter Status: Acute Assessment and Plan: stable, exam unchanged, cont to trend serial H/H (2) COVID: Code(s): U07.1 - COVID-19 Status: Acute Assessment and Plan: supportive care Subjective Subjective Date/Time Seen: 01/21/22 08:10 no acute issues yesterday, feels ok, no pain Review of Systems Review of Systems: All systems reviewed & are unremarkable except as noted in HPI and below Exam Const: General: cooperative, comfortable, no acute distress and ill appearing Chest: Other: L chest wall hematoma unchanged Resp: Effort & Inspection: normal respiratory effort Auscultation: diminished lung sounds Cardio: Rate: regular rate Rhythm: regular rhythm GI: Inspection: normal to inspection GI Palp: Yes Soft to palpation and No Tenderness to palpation present (GI) Objective Data Vital Signs Vital Signs: Vital Signs - 24 hr 01/20/22 08:19 01/20/22 10:16 01/20/22 12:00 Temperature Pulse Rate 78 75 Respiratory Rate 18 Blood Pressure Pulse Oximetry 95 01/20/22 14:14 01/20/22 14:47 01/20/22 16:00 Temperature 36.6 C Pulse Rate 78 73 78 Respiratory Rate 18 18 Blood Pressure 130/63 Pulse Oximetry 100 01/20/22 19:17 01/20/22 19:26 01/20/22 20:00 Temperature Pulse Rate 150 H 127 H Respiratory Rate Blood Pressure Pulse Oximetry 94 01/20/22 20:47 01/20/22 20:55 01/20/22 21:19 Temperature 38.3 C H 38.3 C H Pulse Rate 125 H 125 H Respiratory Rate 16 Blood Pressure 116/78 Pulse Oximetry 93 01/20/22 22:19 01/20/22 22:46 01/20/22 22:56 Temperature 37.8 C H 37.8 C H Pulse Rate 114 H 110 H Respiratory Rate 18 Blood Pressure 106/68 Pulse Oximetry 92 01/21/22 00:00 01/21/22 02:47 01/21/22 03:40 Temperature 36.8 C Pulse Rate 112 H 128 H 138 H Respiratory Rate 20 Blood Pressure 103/73 Pulse Oximetry 93 01/21/22 03:43 01/21/22 04:00 01/21/22 04:30 Temperature Pulse Rate 144 H 111 H 120 H Respiratory Rate Blood Pressure Pulse Oximetry 01/21/22 05:29 01/21/22 05:30 01/21/22 06:00 Temperature 36.4 C L Pulse Rate 97 97 115 H Respiratory Rate 24 H Blood Pressure 100/50 L Pulse Oximetry 96 01/21/22 06:19 01/21/22 06:40 Temperature Pulse Rate 115 H Respiratory Rate Blood Pressure Pulse Oximetry 96 Intake/Output Intake/Output: Intake & Output 01/18/22 01/19/22 01/20/22 01/21/22 23:59 23:59 23:59 23:59 Intake Total 1454 1032 2890 200 Output Total 375 1550 Balance 1454 1032 7179 -9740 Meds/Results Medications: Active Medications Generic Name Dose Route Start Last Admin Trade Name Freq PRN Reason Stop Dose Admin Acetaminophen 650 mg 01/20/22 21:05 01/20/22 21:19 Acetaminophen 325 Mg Tablet PO 650 mg Q6H PRN Administration Mild Pain (1-3) or Fever Carbidopa/Levodopa 1 tablet 01/14/22 08:00 01/20/22 16:15 Carbidopa/Levodopa 10/100 Mg Tablet PO 1 tablet TIDWM NENITA Administration Cefepime HCl 1 gm in 50 mls @ 100 mls/hr 01/20/22 12:00 01/20/22 12:20 Maxipime 1 Gm/D5w 50 Ml IVPB Infused Q24H NENITA Infusion Vancomycin HCl 1,500 mg in 500 mls @ 333.333 mls/hr 01/20/22 13:00 01/20/22 12:20 Vancomycin 1,500 Mg/D5w 500 Ml IVPB 333.33 mls/hr Q36H NENITA Administration Diltiazem HCl 100 mg in 100 mls @ 5 mls/hr 01/21/22 05:20 01/21/22 06:19 Cardizem 100 Mg/100 Ml IV CONT 5 mg/hr .Q20H NENITA 5 mls/hr Administration 5 MG/HR Levalbuterol HCl 2 puff 01/14/22 02:00 01/21/22 08:06 Levalbuterol Hfa (*Sp) 15 Gm Inhaler INHALATION 2 puff Q6HRT NENITA Administration Metoprolol Tartrate 50 mg 01/15/22 21:00 01/20/22 20:47 Metoprolol Tartrate 50 Mg Tab PO 50 mg Q12HR NENITA Administration Multivitamins/Minerals 1 tablet 01/14/22 09:00
--- NOTE | 2022-01-21 10:55 | PM.IMPN ---
Progress Note: A&P Assessment and Plan (1) New onset a-fib: Code(s): I48.91 - Unspecified atrial fibrillation Status: Acute Assessment and Plan: Patient has new onset of AFib previously undiagnosed. Duration of AFib is unknown. Follow echo. Patient has get been given therapeutic Lovenox. Patient started on Cardizem pushes in the ER and has been started on Cardizem p.o.. Uncontrolled medication adjusted by Cardiology The risks and benefits of long-term anticoagulation Anticoagulation managed by Cardio large bruise on right chest wall noted. will hold anticoagulation. ct chest revealed right pectoralis major intramuscular hematoma has required transfusion with fall risk he is at high risk for bleeding and with ongoing bleeding will stop anticoagulation off note he also remains in sinus rhythm since admission Back into AFib again. Started on Cardizem drip Will increase metoprolol to 75 mg twice a day and try to taper off Cardizem drip today (2) COVID: Code(s): U07.1 - COVID-19 Status: Acute Assessment and Plan: Patient is complaining of cough and shortness of of breath intermittent wheeze CRP mildly elevated not on oxygen. 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; F02.80 - Dementia in other diseases classified elsewhere without behavioral disturbance Status: Inactive Assessment and Plan: PT OT eval (5) Parkinsons: Code(s): G20 - Parkinson's disease Status: Acute Assessment and Plan: Continue home medications (6) CHF exacerbation: Code(s): I50.9 - Heart failure, unspecified Status: Acute Assessment and Plan: Acute on top of chronic CHF exacerbation most likely diastolic Continue IV Lasix 2D echo shows diastolic dysfunction Reviewed chest x-ray and BNP 210 Worsen renal functionwill hold diuresis Received dose of IV Lasix 01/21/2022 off fluids due to congestion (7) Chest wall hematoma: Code(s): S20.219A - Contusion of unspecified front wall of thorax, initial encounter Status: Acute Assessment and Plan: new h and h stable. will monitor. ct chest to evaluate. hold anticoagulation Acute blood loss anemia transfused 1 unit PRBC 01/19/2022 Continue to monitor H&H and transfuse p.r.n. General surgery consultation for any surgical intervention discussed with General surgery (8) Acute blood loss anemia: Code(s): D62 - Acute posthemorrhagic anemia Status: Acute Assessment and Plan: transfuse p.r.n. Transfuse 1 unit of PRBC 01/19/2022 H&H down to 7.5 today will transfuse 1 unit of PRBC (9) Acute renal failure: Code(s): N17.9 - Acute kidney failure, unspecified Status: Acute Assessment and Plan: creatinine bumped up to 1.8 urine sodium low at 10 bland urinalysis bladder scan had only 120 cc 01/19/2022 ruling out urinary retention Started on normal saline 100 cc an hour Creatinine continues to worse in to 2.5 today Ren[address] ultrasound Will place a Petersen catheter in for correct Intake and output Renal consultation, discussed with him Renal function improving now (10) Acute encephalopathy: Code(s): G93.40 - Encephalopathy, unspecified Status: Acute Assessment and Plan: his more confused today likely due to metabolic toxic encephalopathy Check ABG which showed no hypercapnia Underlying renal failure Ongoing bleeding Continue to monitor Supportive treatment Additional Plan . Subjective Date/time seen: 01/21/22 10:55 Interval history: 81-year-old male with past medical history of Parkinson's, COPD and p
[2022-01-21] MEDS: OPTI-GEN TAB 1 TABLET PO ×2 (11:47→17:20)
[2022-01-21] MEDS: CARBIDOPA/LEVODOPA 10/100 MG TABLET 1 TABLET PO ×2 (11:47→17:20)
[2022-01-21] MEDS: FUROSEMIDE INJ 40 MG/4 ML VIAL 20 MG IV PUSH ×2 (11:48→19:12)
[2022-01-21] MEDS: METOPROLOL TARTRATE 25 MG TABLET 75 MG PO ×2 (11:48→21:30)
--- NOTE | 2022-01-21 11:50 | PM.PNNEP ---
Progress Note: A&P Additional Plan 1. Zaheer has acute kidney injury. His creatinine is down to 1.8. Urine electrolytes are pre renal. Urinalysis is bland. CK is 1553. This is not generally high enough to cause renal problems but will repeat tomorrow to make sure that it does not go higher. He has not been eating very well. And now he has the hematoma with a significant drop in hemoglobin. His urine sodium is low, all consistent with pre renal azotemia. He is getting some IV fluids. He is also get an obligatory IV fluid with his antibiotics. His intake/output is positive. Will check another creatinine tomorrow. 2.SDAT he is much more interactive today. 3. COPD he is on supportive care 4. COVID the patient has normal oxygen status. 5. Anemia Hemoglobin is only 7.5. Iron saturations are low. B12 and folate are okay. Check Hemoccult. Give iron. 6. Sodium level slightly low. This has improved with hydration. Subjective Date/time seen: 01/21/22 11:50 Interval history: The patient is cold. I gave him a blanket and helped him with his gown. He has a cough still. He is not short of breath. He is not on oxygen. He is thirsty. Review of Systems Cardiovascular: Cardiovascular: Reports no additional cardiovascular complaints Respiratory: Respiratory: Reports no additional respiratory complaints Gastrointestinal: Gastrointestinal: Reports no additional gastrointestinal complaints Genitourinary: Genitourinary: Reports no additional male genitourinary complaints Exam Narrative: WDWN in NAD skin no rash head ncat lungs some coarse upper airway noise. cor reg no rub abd BS+ nontender and soft ext no edema. Objective Data Vital Signs Vital Signs: Vital Signs - 24 hr 01/20/22 12:00 01/20/22 14:14 01/20/22 14:47 Temperature 36.6 C Pulse Rate 75 78 73 Respiratory Rate 18 18 Blood Pressure 130/63 Pulse Oximetry 100 01/20/22 16:00 01/20/22 19:17 01/20/22 19:26 Temperature Pulse Rate 78 150 H Respiratory Rate Blood Pressure Pulse Oximetry 94 01/20/22 20:00 01/20/22 20:47 01/20/22 20:55 Temperature 38.3 C H Pulse Rate 127 H 125 H 125 H Respiratory Rate 16 Blood Pressure 116/78 Pulse Oximetry 93 01/20/22 21:19 01/20/22 22:19 01/20/22 22:46 Temperature 38.3 C H 37.8 C H 37.8 C H Pulse Rate 114 H Respiratory Rate 18 Blood Pressure 106/68 Pulse Oximetry 92 01/20/22 22:56 01/21/22 00:00 01/21/22 02:47 Temperature 36.8 C Pulse Rate 110 H 112 H 128 H Respiratory Rate 20 Blood Pressure 103/73 Pulse Oximetry 93 01/21/22 03:40 01/21/22 03:43 01/21/22 04:00 Temperature Pulse Rate 138 H 144 H 111 H Respiratory Rate Blood Pressure Pulse Oximetry 01/21/22 04:30 01/21/22 05:29 01/21/22 05:30 Temperature 36.4 C L Pulse Rate 120 H 97 97 Respiratory Rate 24 H Blood Pressure 100/50 L Pulse Oximetry 96 01/21/22 06:00 01/21/22 06:19 01/21/22 06:40 Temperature Pulse Rate 115 H 115 H Respiratory Rate Blood Pressure Pulse Oximetry 96 01/21/22 08:00 01/21/22 10:00 01/21/22 11:48 Temperature 36.5 C Pulse Rate 110 H 105 H 99 Respiratory Rate 24 H Blood Pressure 97/57 L Pulse Oximetry 97 Intake/Output Intake/Output: Intake & Output 01/18/22 01/19/22 01/20/22 01/21/22 23:59 23:59 23:59 23:59 Intake Total 1454 1032 2890 320 Output Total 375 1550 Balance 1454 1032 2515 -1230 Meds/Results Medications: Active Medications Generic Name Dose Route Start Last Admin Trade Name Valerioq PRN Reason Stop Dose Admin Acetaminophen 650 mg 01/20/22 21:05 01/20/22 21:19 Acetaminophen 325 Mg Tablet PO 650 mg Q6H PRN Administration Mild Pain (1-3) or Fever Carbidopa/Levodopa 1 tablet 01/14/22 08:00 01/21/22 11:47 Carbidopa/Levodopa 10/100 Mg Tablet PO 1 tablet TIDWM NENITA Administration Cefepime HCl 1 gm in 50 mls @ 100 mls/hr 01/20/22 12:00
[2022-01-21] MEDS: IRON SUCROSE COMPLEX 200 MG in SODIUM CHLORIDE 0.9% IV 50 ML 120 MG IVPB (13:40)
--- NOTE | 2022-01-21 15:06 | PC.NURSE ---
Spoke to Dr. Escobar, expressed my concern regarding chest wall hematoma. assured me the bleeding was more than likely caused by anti coagulation which has been stopped. He ordered 1 unit of PRBC to infuse. This will be his 3rd unit of PRBC. Patient denies pain in this specific area. Skin is warn to the touch. Right arm pulses are normal, skin is blanchable, nipple is of normal color.
--- NOTE | 2022-01-21 15:32 | PCSTNOTE ---
Please refer to the Bedside Swallow Evaluation in the EMR. Please note, silent aspiration cannot be ruled out at bedside.
--- NOTE | 2022-01-21 16:14 | PC.NURSE ---
Dr. Arce radiologist confirmed placement of PICC line. Tony PICC nurse and Brit NORWOOD witnessed confirmation of PICC line placement.
--- NOTE | 2022-01-21 16:48 | PC.NURSE ---
Involved Charge nurse Max regarding my concerns about hematoma. Will call Dr. Escobar again to discuss. Checked hand warmth, pulses, skin color. everything is within normal limits.
[2022-01-21] MEDS: SODIUM CHLORIDE 0.9% IV 250 ML 30 ML IV CONT (16:57)
[2022-01-21] MEDS: LIDOCAINE HCL 1% PF INJ 5 ML VIAL INFILTRATE (16:58)
[2022-01-21] MEDS: TUBING, BLOOD PLUM PUMP TUBING 1 EACH XX (16:58)
[2022-01-21 20:00] LABS: Hematocrit 25.5 % (42.0-52.0); Hemoglobin 8.2 g/dL (14.0-18.0)
[2022-01-22] VITALS (17 sets, daily range): BP systolic 107–131; BP diastolic 59–78; PULSE 85–115; RESP 22–28; TEMP 36.4–36.8; O2SAT 96–98
[2022-01-22] MEDS: LEVALBUTEROL HFA (*SP) 15 GM INHALER 2 PUFF INHALATION ×4 (02:30→20:41)
[2022-01-22 02:57] LABS: Basophils Percent Auto 0.2 % (0.2-1.2); Eosinophils Percent Auto 0.3 % (0-4.4); Hematocrit 24.6 % (42.0-52.0); Hemoglobin 8.3 g/dL (14.0-18.0); Immature Granulocyte Absolute 0.31 K/mm3 (0.00-0.031); Immature Granulocyte Percent A 2.8 % (0-0.5); Lymphocytes Absolute Auto 1.12 K/mm3 (0.9-3.2); Lymphocytes Percent Auto 10.2 % (18.3-44.2); Mean Corpuscular HGB Conc 33.7 g/dl (32-36); Mean Platelet Volume 10.9 fl (7.4-10.4); Monocytes Absolute Auto 0.9 K/mm3 (0.1-0.6); Neutrophils Absolute Auto 8.6 K/mm3 (1.3-6.7); Neutrophils Percent Auto 78.5 % (45.5-73.1); Nucleated Red Blood Cells Perc 0.2 % (0.0-0.2); Platelet Count Result 170 k/mm3 (150-375); Red Blood Count 2.86 M/mm3 (4.6-6.20); Red Cell Distribution Width 14.2 % (11.5-14.5)
[2022-01-22 03:13] LABS: Anion Gap 3 mmol/L (8-16); Blood Urea Nitrogen 55 mg/dL (9-20); Calcium 7.6 mg/dL (8.4-10.2); Carbon Dioxide 28 mmol/L (22-30); Chloride 97 mmol/L (98-107); Creatine Kinase 1363 U/L (55-170); Estimated CRCL calculation 41 ml/min; Estimated Glomerular Filt Rate 53; Glucose 131 mg/dL (65-110); Magnesium 2.3 mg/dL (1.6-2.3); Phosphorus 2.6 mg/dL (2.5-4.5); Potassium 3.8 mmol/L (3.4-5.0); Sodium 128 mmol/L (137-145)
[2022-01-22] MEDS: CENTRAL LINE FLUSH 10 ML IV PUSH ×3 (07:00→20:55)
[2022-01-22] MEDS: FLUTICASONE/SALMETEROL 115-21 MCG (*SP) INHALER 2 PUFF INHALATION ×2 (08:17→20:41)
--- NOTE | 2022-01-22 10:45 | PC.NURSE ---
Called Dr. Art office. Reported patient pain and rght arm numbness. Dr. Charles assessed patient and is aware of patients complaint of right chest pain and right arm numbness.
[2022-01-22] MEDS: OPTI-GEN TAB 1 TABLET PO ×2 (10:57→16:11)
[2022-01-22] MEDS: CARBIDOPA/LEVODOPA 10/100 MG TABLET 1 TABLET PO ×2 (10:57→16:12)
[2022-01-22] MEDS: METOPROLOL TARTRATE 25 MG TABLET 75 MG PO ×2 (10:57→20:55)
--- NOTE | 2022-01-22 13:06 | PM.IMPN ---
Progress Note: A&P Assessment and Plan (1) New onset a-fib: Code(s): I48.91 - Unspecified atrial fibrillation Status: Acute Assessment and Plan: Patient has new onset of AFib previously undiagnosed. Duration of AFib is unknown. Follow echo. Patient has get been given therapeutic Lovenox. Patient started on Cardizem pushes in the ER and has been started on Cardizem p.o.. Uncontrolled medication adjusted by Cardiology The risks and benefits of long-term anticoagulation Anticoagulation managed by Cardio large bruise on right chest wall noted. will hold anticoagulation. ct chest revealed right pectoralis major intramuscular hematoma has required transfusion with fall risk he is at high risk for bleeding and with ongoing bleeding will stop anticoagulation off note he also remains in sinus rhythm since admission Back into AFib again. Started on Cardizem drip Will increase metoprolol to 75 mg twice a day and tapered off Cardizem drip. (2) COVID: Code(s): U07.1 - COVID-19 Status: Acute Assessment and Plan: Patient is complaining of cough and shortness of of breath intermittent wheeze CRP mildly elevated not on oxygen. 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; F02.80 - Dementia in other diseases classified elsewhere without behavioral disturbance Status: Inactive Assessment and Plan: PT OT eval (5) Parkinsons: Code(s): G20 - Parkinson's disease Status: Acute Assessment and Plan: Continue home medications (6) CHF exacerbation: Code(s): I50.9 - Heart failure, unspecified Status: Acute Assessment and Plan: Acute on top of chronic CHF exacerbation most likely diastolic Continue IV Lasix 2D echo shows diastolic dysfunction Reviewed chest x-ray and BNP 210 Worsen renal functionwill hold diuresis Received dose of IV Lasix 01/21/2022 off fluids due to congestion Renal function has improved and back to baseline (7) Chest wall hematoma: Code(s): S20.219A - Contusion of unspecified front wall of thorax, initial encounter Status: Acute Assessment and Plan: new h and h stable. will monitor. ct chest to evaluate. hold anticoagulation Acute blood loss anemia transfused 1 unit PRBC 01/19/2022 Continue to monitor H&H and transfuse p.r.n. General surgery consultation for any surgical intervention discussed with General surgery (8) Acute blood loss anemia: Code(s): D62 - Acute posthemorrhagic anemia Status: Acute Assessment and Plan: transfuse p.r.n. Transfuse 1 unit of PRBC 01/19/2022 H&H down to 7.5 transfused 1 unit of PRBC 01/21/2022 H&H stable 01/22/2022 continue to monitor (9) Acute renal failure: Code(s): N17.9 - Acute kidney failure, unspecified Status: Acute Assessment and Plan: creatinine bumped up to 1.8 urine sodium low at 10 bland urinalysis bladder scan had only 120 cc 01/19/2022 ruling out urinary retention Started on normal saline 100 cc an hour Creatinine continues to worse in to 2.5 today Renal ultrasound Will place a Petersen catheter in for correct Intake and output Renal consultation, discussed with him Renal function improving now and resolve (10) Acute encephalopathy: Code(s): G93.40 - Encephalopathy, unspecified Status: Acute Assessment and Plan: his more confused today likely due to metabolic toxic encephalopathy Check ABG which showed no hypercapnia Underlying renal failure Ongoing bleeding Continue to monitor Supportive treatment Additional Plan . Subjective Date/time seen: 01/22/22
--- NOTE | 2022-01-22 13:28 | PCPTNOTE ---
Spoke with Dr. Charles at 13:25, hold PT for two days. Will Follow
--- NOTE | 2022-01-22 13:29 | PCOTNOTE ---
Spoke with Dr. Charles at 13:25, hold OT for two days. Will Follow
--- NOTE | 2022-01-22 15:16 | PM.PNGS ---
Progress Note: A&P Assessment and Plan (1) Chest wall hematoma: Code(s): S20.219A - Contusion of unspecified front wall of thorax, initial encounter Status: Acute Assessment and Plan: H/H seems stable at this point, hopefully no further bleeding, may need CTA to further eval if bleeding continues Subjective Subjective Date/Time Seen: 01/22/22 15:16 received another unit of PRBC yesterday, reports chest and LUE unchanged Review of Systems Review of Systems: All systems reviewed & are unremarkable except as noted in HPI and below Exam Const: General: cooperative, comfortable, no acute distress and ill appearing Chest: Other: large L chest wall hematoma c bruising extending to L axilla the LUE, good movt/sensory LUE, good pulses Resp: Auscultation: diminished lung sounds Cardio: Rate: regular rate Rhythm: regular rhythm GI: Inspection: normal to inspection GI Palp: Yes Soft to palpation and No Tenderness to palpation present (GI) Objective Data Vital Signs Vital Signs: Vital Signs - 24 hr 01/21/22 16:00 01/21/22 16:32 01/21/22 16:51 Temperature 37.1 C 37.2 C 37.2 C Pulse Rate 93 80 93 Respiratory Rate 24 H 24 H 24 H Blood Pressure 99/62 L 98/60 L 99/62 L Pulse Oximetry 97 99 100 01/21/22 17:51 01/21/22 18:00 01/21/22 18:50 Temperature 36.4 C 37.1 C Pulse Rate 89 93 98 Respiratory Rate 24 H 26 H Blood Pressure 99/63 L 122/63 Pulse Oximetry 99 99 01/21/22 20:00 01/21/22 20:55 01/21/22 21:30 Temperature 36.7 C Pulse Rate 85 98 Respiratory Rate 22 H Blood Pressure 99/79 L Pulse Oximetry 99 94 01/21/22 22:00 01/22/22 00:00 01/22/22 02:00 Temperature 36.4 C L Pulse Rate 92 92 100 Respiratory Rate 28 H Blood Pressure 109/59 L Pulse Oximetry 98 01/22/22 04:00 01/22/22 06:00 01/22/22 08:00 Temperature 36.4 C 36.6 C Pulse Rate 103 H 95 115 H Respiratory Rate 26 H 22 H Blood Pressure 107/63 122/59 L Pulse Oximetry 98 96 05/23/22 10:00 01/22/22 10:57 Temperature Pulse Rate 106 H 104 H Respiratory Rate Blood Pressure Pulse Oximetry Intake/Output Intake/Output: Intake & Output 01/19/22 01/20/22 01/21/22 01/22/22 23:59 23:59 23:59 23:59 Intake Total 1032 3390 1230 650 Output Total 375 2350 1000 Balance 1032 0007 -1127 -350 Meds/Results Medications: Active Medications Generic Name Dose Route Start Last Admin Trade Name Freq PRN Reason Stop Dose Admin Acetaminophen 650 mg 01/20/22 21:05 01/20/22 21:19 Acetaminophen 325 Mg Tablet PO 650 mg Q6H PRN Administration Mild Pain (1-3) or Fever Carbidopa/Levodopa 1 tablet 01/14/22 08:00 01/22/22 10:57 Carbidopa/Levodopa 10/100 Mg Tablet PO 1 tablet TIDWM NENITA Administration Cefepime HCl 1 gm in 50 mls @ 100 mls/hr 01/20/22 12:00 01/21/22 17:19 Maxipime 1 Gm/D5w 50 Ml IVPB 100 mls/hr Q24H NENITA Administration Iron Sucrose 200 mg/ Sodium 60 mls @ 120 mls/hr 01/21/22 13:00 01/21/22 13:40 Chloride IVPB 01/25/22 13:29 120 mls/hr Q24H NENITA Administration Vancomycin HCl 1,500 mg in 500 mls @ 333.333 mls/hr 01/23/22 01:00 Vancomycin 1,500 Mg/D5w 500 Ml IVPB Q24H NENITA Levalbuterol HCl 2 puff 01/14/22 02:00 01/22/22 13:44 Levalbuterol Hfa (*Sp) 15 Gm Inhaler INHALATION 2 puff Q6HRT NENITA Administration Metoprolol Tartrate 75 mg 01/21/22 09:00 01/22/22 10:57 Metoprolol Tartrate 25 Mg Tablet PO 75 mg Q12HR NENITA Administration Multivitamins/Minerals 1 tablet 01/14/22 09:00 01/22/22 10:57 Opti-Gen Tab PO 1 tablet BID NENITA Administration Perflutren Lipid Microsphere 0 ml 01/13/22 20:45 Perflutren Lipid Microspheres 1.5 Ml Vial Diluted To 10 Ml Total Volume IV PUSH ONCE PRN adequate visualization Protocol Fluticasone/Salmeterol 2 puff 01/19/22 08:00 01/22/22 08:17 Fluticasone/Salmeterol 115-21 Mcg (*Sp) Inhaler INHALATION 2 puff Q12HRT NENITA Administration Sodium Chloride
--- NOTE | 2022-01-22 16:01 | P.PNNP_ITS ---
Progress Note: A&P Assessment and Plan (1) Acute renal failure: Code(s): N17.9 - Acute kidney failure, unspecified Status: Acute Assessment and Plan: * improving with current therapy * due to volume depletion and pre-renal factors (poor oral intake, low H/H, possibly COVID) * evaluation to date: * urine electrolytes pre-renal * urinalysis bland * CPK mildly elevated but not likely high enought to affect kidneys * continue supportive therapy (2) COVID-19 virus infection: Code(s): U07.1 - COVID-19 Status: Acute Assessment and Plan: * normal oxygenation * continue supportive therapy (3) New onset a-fib: Code(s): I48.91 - Unspecified atrial fibrillation Status: Acute Assessment and Plan: * initially on diltiazem gtt for rate control * rate control stable at this time (off gtt) * continue supportive therapy (4) Chest wall hematoma: Code(s): S20.219A - Contusion of unspecified front wall of thorax, initial encounter Status: Acute Assessment and Plan: * follow trend of H/H * PRBC transfusion per protocol * getting IV venofer given low TSAT * General Surgery following as well * may need further CT imaging Will continue to follow. Subjective Date/time seen: 01/22/22 16:01 Chart reviewed - assuming care from Dr. Jackson; increased confusion/restlessness per nursing overnight in association with right shoulder swelling/bruising; complaints of mumbness in right arm as well; s/p PRBC transfusion yesterday and tolerated well; heart rate stable off diltiazem gtt. Exam Narrative: General: elderly WD/WN male in NAD Heart: normal S1 and S2; no rub Lungs: coarse breath sounds Abdomen: soft, nontender, nondistended, positive bowel sounds Extremities: no cyanosis or clubbing; no edema Skin: warm and dry Objective Data Vital Signs Vital Signs: Vital Signs Temp Pulse Resp BP Pulse Ox 01/22/22 16:00 36.8 C 97 22 H 113/61 98 01/22/22 14:00 98 01/22/22 12:00 36.8 C 95 26 H 107/60 97 01/22/22 10:57 104 H 01/22/22 10:00 106 H 01/22/22 08:00 36.6 C 115 H 22 H 122/59 L 96 05/23/22 06:00 95 01/22/22 04:00 36.4 C 103 H 26 H 107/63 98 01/22/22 02:00 100 01/22/22 00:00 36.4 C L 92 28 H 109/59 L 98 01/21/22 22:00 92 01/21/22 21:30 98 01/21/22 20:55 94 01/21/22 20:00 36.7 C 85 22 H 99/79 L 99 01/21/22 18:50 37.1 C 98 26 H 122/63 99 Intake/Output Intake/Output: Intake & Output 01/19/22 01/20/22 01/21/22 01/22/22 23:59 23:59 23:59 23:59 Intake Total 1032 3390 1340 1190 Output Total 375 2350 1700 Balance 1032 0955 -101 -761 Meds/Results Medications: Active Medications Generic Name Dose Route Start Last Admin Trade Name Valerioq PRN Reason Stop Dose Admin Acetaminophen 650 mg 01/20/22 21:05 01/20/22 21:19 Acetaminophen 325 Mg Tablet PO 650 mg Q6H PRN Administration Mild Pain (1-3) or Fever Carbidopa/Levodopa 1 tablet 01/14/22 08:00 01/22/22 16:12 Carbidopa/Levodopa 10/100 Mg Tablet PO 1 tablet TIDWM NENITA Administration Cefepime HCl 1 gm in 50 mls @ 10
--- NOTE | 2022-01-22 16:01 | PM.PNNEP ---
Progress Note: A&P Assessment and Plan (1) Acute renal failure: Code(s): N17.9 - Acute kidney failure, unspecified Status: Acute Assessment and Plan: improving with current therapy due to volume depletion and pre-renal factors (poor oral intake, low H/H, possibly COVID) evaluation to date: urine electrolytes pre-renal urinalysis bland CPK mildly elevated but not likely high enought to affect kidneys continue supportive therapy (2) COVID-19 virus infection: Code(s): U07.1 - COVID-19 Status: Acute Assessment and Plan: normal oxygenation continue supportive therapy (3) New onset a-fib: Code(s): I48.91 - Unspecified atrial fibrillation Status: Acute Assessment and Plan: initially on diltiazem gtt for rate control rate control stable at this time (off gtt) continue supportive therapy (4) Chest wall hematoma: Code(s): S20.219A - Contusion of unspecified front wall of thorax, initial encounter Status: Acute Assessment and Plan: follow trend of H/H PRBC transfusion per protocol getting IV venofer given low TSAT General Surgery following as well may need further CT imaging Will continue to follow. Subjective Date/time seen: 01/22/22 16:01 Chart reviewed - assuming care from Dr. Jackson; increased confusion/restlessness per nursing overnight in association with right shoulder swelling/bruising; complaints of mumbness in right arm as well; s/p PRBC transfusion yesterday and tolerated well; heart rate stable off diltiazem gtt. Exam Narrative: General: elderly WD/WN male in NAD Heart: normal S1 and S2; no rub Lungs: coarse breath sounds Abdomen: soft, nontender, nondistended, positive bowel sounds Extremities: no cyanosis or clubbing; no edema Skin: warm and dry Objective Data Vital Signs Vital Signs: Vital Signs Temp Pulse Resp BP Pulse Ox 01/22/22 16:00 36.8 C 97 22 H 113/61 98 01/22/22 14:00 98 01/22/22 12:00 36.8 C 95 26 H 107/60 97 01/22/22 10:57 104 H 01/22/22 10:00 106 H 01/22/22 08:00 36.6 C 115 H 22 H 122/59 L 96 01/22/22 06:00 95 01/22/22 04:00 36.4 C 103 H 26 H 107/63 98 01/22/22 02:00 100 01/22/22 00:00 36.4 C L 92 28 H 109/59 L 98 01/21/22 22:00 92 01/21/22 21:30 98 01/21/22 20:55 94 01/21/22 20:00 36.7 C 85 22 H 99/79 L 99 01/21/22 18:50 37.1 C 98 26 H 122/63 99 Intake/Output Intake/Output: Intake & Output 01/19/22 01/20/22 01/21/22 01/22/22 23:59 23:59 23:59 23:59 Intake Total 1032 3390 1340 1190 Output Total 375 2350 1700 Balance 1032 3010 -1016 -510 Meds/Results Medications: Active Medications Generic Name Dose Route Start Last Admin Trade Name Freq PRN Reason Stop Dose Admin Acetaminophen 650 mg 01/20/22 21:05 01/20/22 21:19 Acetaminophen 325 Mg Tablet PO 650 mg Q6H PRN Administration Mild Pain (1-3) or Fever Carbidopa/Levodopa 1 tablet 01/14/22 08:00 01/22/22 16:12 Carbidopa/Levodopa 10/100 Mg Tablet PO 1 tablet TIDWM NENITA Administration Cefepime HCl 1 gm in 50 mls @ 100 mls/hr 01/20/22 12:00 01/22/22 16:11 Maxipime 1 Gm/D5w 50 Ml IVPB 100 mls/hr Q24H NENITA Administration Iron Sucrose 200 mg/ Sodium 60 mls @ 120 mls/hr 01/21/22 13:00 01/22/22 16:11 Chloride IVPB 01/25/22 13:29 120 mls/hr Q24H NENITA Administration Vancomycin HCl 1,500 mg in 500 mls @ 333.333 mls/hr 01/23/22 01:00 Vancomycin 1,500 Mg/D5w 500 Ml IVPB Q24H NENITA Levalbuterol HCl 2 puff 01/14/22 02:00 01/22/22 13:44 Levalbuterol Hfa (*Sp) 15 Gm Inhaler INHALATION 2 puff Q6HRT NENITA Administration Metoprolol Tartrate 75 mg 01/21/22 09:00 01/22/22 10:57 Metoprolol Tartrate 25 Mg Tablet PO 75 mg Q12HR NENITA Administration Multivitamins/Minerals 1 tablet 01/14/22 09:00 01/22/22 16:11 Opti-Gen Tab PO 1 tablet BID NENITA Administration
[2022-01-22] MEDS: IRON SUCROSE COMPLEX 200 MG in SODIUM CHLORIDE 0.9% IV 50 ML 120 MG IVPB (16:11)
[2022-01-22 16:17] LABS: Hematocrit 26.1 % (42.0-52.0); Hemoglobin 8.4 g/dL (14.0-18.0)
[2022-01-23] VITALS (16 sets, daily range): BP systolic 106–121; BP diastolic 58–75; PULSE 76–86; RESP 19–31; TEMP 36.4–36.8; O2SAT 93–98
[2022-01-23] MEDS: LEVALBUTEROL HFA (*SP) 15 GM INHALER 2 PUFF INHALATION ×4 (02:20→20:48)
[2022-01-23 06:10] LABS: Alanine Aminotransferase 27 U/L (6-50); Albumin Level 2.7 g/dL (3.5-5.1); Alkaline Phosphatase 46 U/L (38-126); Anion Gap 3 mmol/L (8-16); Aspartate Amino Transferase 46 U/L (17-59); Bilirubin,Total 1.7 mg/dL (0.2-1.3); Blood Urea Nitrogen 39 mg/dL (9-20); Calcium 7.5 mg/dL (8.4-10.2); Carbon Dioxide 28 mmol/L (22-30); Chloride 97 mmol/L (98-107); Creatine Kinase 961 U/L (55-170); Estimated CRCL calculation 48 ml/min; Estimated Glomerular Filt Rate > 60; Glucose 101 mg/dL (65-110); Magnesium 2.5 mg/dL (1.6-2.3); Potassium 3.8 mmol/L (3.4-5.0); Sodium 128 mmol/L (137-145)
[2022-01-23] MEDS: CENTRAL LINE FLUSH 10 ML IV PUSH ×2 (06:22→12:44)
[2022-01-23 06:45] LABS: Basophils Percent Auto 0.2 % (0.2-1.2); Eosinophils Percent Auto 1.1 % (0-4.4); Hematocrit 23.5 % (42.0-52.0); Hemoglobin 7.5 g/dL (14.0-18.0); Lymphocytes Percent Auto 12.8 % (18.3-44.2); Mean Corpuscular HGB Conc 31.9 g/dl (32-36); Mean Corpuscular Hemoglobin 28.5 pg (26-34); Mean Corpuscular Volume 89.4 fl (80-100); Mean Platelet Volume 10.9 fl (7.4-10.4); Monocytes Percent Auto 9.7 % (2.6-8.5); Neutrophils Percent Auto 71.2 % (45.5-73.1); Platelet Count Result 185 k/mm3 (150-375); Red Blood Count 2.63 M/mm3 (4.6-6.20); Red Cell Distribution Width 14.7 % (11.5-14.5); White Blood Count 9.4 K/mm3 (4.5-10.0)
[2022-01-23 06:46] LABS: Eosinophils Absolute Auto 0.1 K/mm3 (0-0.3); Immature Granulocyte Absolute 0.47 K/mm3 (0.00-0.031); Lymphocytes Absolute Auto 1.21 K/mm3 (0.9-3.2); Monocytes Absolute Auto 0.9 K/mm3 (0.1-0.6); Neutrophils Absolute Auto 6.7 K/mm3 (1.3-6.7)
[2022-01-23] MEDS: FLUTICASONE/SALMETEROL 115-21 MCG (*SP) INHALER 2 PUFF INHALATION ×2 (09:30→20:48)
[2022-01-23] MEDS: CARBIDOPA/LEVODOPA 10/100 MG TABLET 1 TABLET PO ×3 (09:51→17:34)
[2022-01-23] MEDS: OPTI-GEN TAB 1 TABLET PO ×2 (09:51→17:34)
[2022-01-23] MEDS: METOPROLOL TARTRATE 25 MG TABLET 75 MG PO ×2 (09:51→20:43)
--- NOTE | 2022-01-23 10:50 | PM.PNGS ---
Progress Note: A&P Assessment and Plan (1) Chest wall hematoma: Code(s): S20.219A - Contusion of unspecified front wall of thorax, initial encounter Status: Acute Assessment and Plan: will further evaluate c CTA chest to check for active bleed Subjective Subjective Date/Time Seen: 01/23/22 10:50 slow drift in H/H, HD stable, still c/o some LUE weakness, numbness Review of Systems Review of Systems: All systems reviewed & are unremarkable except as noted in HPI and below Exam Const: General: cooperative, comfortable and no acute distress Chest: Other: L chest hematoma - unchanged Resp: Auscultation: clear to auscultation bilaterally Cardio: Rate: regular rate Rhythm: regular rhythm Objective Data Vital Signs Vital Signs: Vital Signs - 24 hr 01/22/22 10:57 01/22/22 12:00 01/22/22 14:00 Temperature Pulse Rate 104 H 90 98 Respiratory Rate Blood Pressure Pulse Oximetry Oxygen Delivery 01/22/22 12:00 01/22/22 16:00 01/22/22 16:00 Temperature Pulse Rate 94 Respiratory Rate Blood Pressure Pulse Oximetry Oxygen Delivery Room Air Room Air 01/22/22 16:00 01/22/22 12:00 01/22/22 17:28 Temperature 36.8 C 36.8 C 36.4 C Pulse Rate 97 95 94 Respiratory Rate 22 H 26 H 26 H Blood Pressure 113/61 107/60 129/75 Pulse Oximetry 98 97 97 Oxygen Delivery 01/22/22 18:00 01/22/22 20:42 01/22/22 20:15 Temperature 36.6 C Pulse Rate 91 88 88 Respiratory Rate 22 H Blood Pressure 131/78 Pulse Oximetry 96 97 Oxygen Delivery Room Air 01/22/22 20:55 01/22/22 20:00 01/22/22 22:00 Temperature Pulse Rate 91 85 Respiratory Rate Blood Pressure Pulse Oximetry 96 Oxygen Delivery Room Air 01/22/22 20:00 01/23/22 00:00 01/23/22 00:00 Temperature 36.5 C Pulse Rate 87 82 Respiratory Rate 21 H Blood Pressure 114/75 Pulse Oximetry 98 97 Oxygen Delivery Room Air 01/23/22 00:00 01/23/22 02:00 01/23/22 04:00 Temperature Pulse Rate 86 83 Respiratory Rate Blood Pressure Pulse Oximetry 96 Oxygen Delivery Room Air 01/23/22 04:00 01/23/22 04:00 01/23/22 06:00 Temperature 36.8 C Pulse Rate 81 81 77 Respiratory Rate 19 Blood Pressure 111/58 L Pulse Oximetry 96 Oxygen Delivery 01/23/22 09:30 01/23/22 09:51 01/23/22 08:00 Temperature 36.8 C Pulse Rate 84 79 Respiratory Rate 22 H Blood Pressure 121/64 Pulse Oximetry 98 95 Oxygen Delivery Room Air Intake/Output Intake/Output: Intake & Output 01/20/22 01/21/22 01/22/22 01/23/22 23:59 23:59 23:59 23:59 Intake Total 3390 1340 1190 980 Output Total 375 2350 1700 650 Balance 9441 -1010 -510 330 Meds/Results Medications: Active Medications Generic Name Dose Route Start Last Admin Trade Name Freq PRN Reason Stop Dose Admin Acetaminophen 650 mg 01/20/22 21:05 01/20/22 21:19 Acetaminophen 325 Mg Tablet PO 650 mg Q6H PRN Administration Mild Pain (1-3) or Fever Carbidopa/Levodopa 1 tablet 01/14/22 08:00 01/23/22 09:51 Carbidopa/Levodopa 10/100 Mg Tablet PO 1 tablet TIDWM NENITA Administration Cefepime HCl 1 gm in 50 mls @ 100 mls/hr 01/20/22 12:00 01/22/22 16:11 Maxipime 1 Gm/D5w 50 Ml IVPB 100 mls/hr Q24H NENITA Administration Iron Sucrose 200 mg/ Sodium 60 mls @ 120 mls/hr 01/21/22 13:00 01/22/22 16:11 Chloride IVPB 01/25/22 13:29 120 mls/hr Q24H NENITA Administration Vancomycin HCl 1,500 mg in 500 mls @ 333.333 mls/hr 01/23/22 01:00 01/23/22 02:00 Vancomycin 1,500 Mg/D5w 500 Ml IVPB Infused Q24H NENITA Infusion Levalbuterol HCl 2 puff 01/14/22 02:00 01/23/22 09:30 Levalbuterol Hfa (*Sp) 15 Gm Inhaler INHALATION 2 puff Q6HRT NENITA Administration Metoprolol Tartrate 75 mg 01/21/22 09:00 01/23/22 09:51 Metoprolol Tartrate 25 Mg Tablet PO 75 mg Q12HR NENITA Administration Multivitamins/Minerals 1 tablet 01/14/22 09:00 01/23/22 09:51 Opti-
[2022-01-23] MEDS: IRON SUCROSE COMPLEX 200 MG in SODIUM CHLORIDE 0.9% IV 50 ML 120 MG IVPB (12:37)
--- NOTE | 2022-01-23 13:19 | PM.PNNEP ---
Progress Note: A&P Assessment and Plan (1) Acute renal failure: Code(s): N17.9 - Acute kidney failure, unspecified Status: Acute Assessment and Plan: SADIE due to volume depletion and pre-renal factors (poor oral intake, low H/H, possibly COVID) moved to the ICU but is on IMU status. This is just because he keeps trying to get out of bed and the big glass doors let people keep an eye on him. evaluation to date: urine electrolytes pre-renal urinalysis bland CPK mildly elevated but not likely high enought to affect kidneys creatinine has improved to normal continue supportive therapy discussed with (2) COVID-19 virus infection: Code(s): U07.1 - COVID-19 Status: Acute Assessment and Plan: normal oxygenation continue supportive therapy (3) New onset a-fib: Code(s): I48.91 - Unspecified atrial fibrillation Status: Acute Assessment and Plan: initially on diltiazem gtt for rate control rate control stable at this time (off gtt) continue supportive therapy (4) Chest wall hematoma: Code(s): S20.219A - Contusion of unspecified front wall of thorax, initial encounter Status: Acute Assessment and Plan: follow trend of H/H PRBC transfusion per protocol getting IV venofer given low TSAT General Surgery following as well may need further CT imaging Will continue to follow. Additional Plan 1. Zaheer has acute kidney injury. His creatinine is down to 1.8. Urine electrolytes are pre renal. Urinalysis is bland. CK is 1553. This is not generally high enough to cause renal problems but will repeat tomorrow to make sure that it does not go higher. He has not been eating very well. And now he has the hematoma with a significant drop in hemoglobin. His urine sodium is low, all consistent with pre renal azotemia. He is getting some IV fluids. He is also get an obligatory IV fluid with his antibiotics. His intake/output is positive. Will check another creatinine tomorrow. 2.SDAT he is much more interactive today. 3. COPD he is on supportive care 4. COVID the patient has normal oxygen status. 5. Anemia Hemoglobin is only 7.5. Iron saturations are low. B12 and folate are okay. Check Hemoccult. Give iron. 6. Sodium level slightly low. This has improved with hydration. Subjective Date/time seen: 01/23/22 13:19 Interval history: Patient is awake. He is very terse. No chest pain or shortness of breath Exam Narrative: General: elderly WD/WN male in NAD Heart: normal S1 and S2; no rub or gallop Lungs: coarse breath sounds Abdomen: soft, nontender, nondistended, positive bowel sounds Extremities: no cyanosis or clubbing; no edema Skin: no rash Objective Data Vital Signs Vital Signs: Vital Signs - 24 hr 01/22/22 14:00 01/22/22 16:00 01/22/22 16:00 Temperature Pulse Rate 98 94 Respiratory Rate Blood Pressure Pulse Oximetry Oxygen Delivery Room Air 01/22/22 16:00 01/22/22 17:28 01/22/22 18:00 Temperature 36.8 C 36.4 C Pulse Rate 97 94 91 Respiratory Rate 22 H 26 H Blood Pressure 113/61 129/75 Pulse Oximetry 98 97 Oxygen Delivery 01/22/22 20:42 01/22/22 20:15 01/22/22 20:55 Temperature 36.6 C Pulse Rate 88 88 91 Respiratory Rate 22 H Blood Pressure 131/78 Pulse Oximetry 96 97 Oxygen Delivery Room Air 01/22/22 20:00 01/22/22 22:00 01/22/22 20:00 Temperature Pulse Rate 85 87 Respiratory Rate Blood Pressure Pulse Oximetry 96 Oxygen Delivery Room Air 01/23/22 00:00 01/23/22 00:00 01/23/22 00:00 Temperature 36.5 C Pulse Rate 82 86 Respiratory Rate 21 H Blood Pressure 114/75 Pulse Oximetry 98 97 Oxygen Delivery Room Air 01/23/22 02:00 01/23/22 04:00 01/23/22 04:00 Temperature Pulse Rate 83 81 Respiratory Rate Blood Pressure Pulse Oximetry 96 Oxygen Delivery Room Air
--- NOTE | 2022-01-23 14:06 | PM.IMPN ---
Progress Note: A&P Assessment and Plan (1) New onset a-fib: Code(s): I48.91 - Unspecified atrial fibrillation Status: Acute Assessment and Plan: Patient has new onset of AFib previously undiagnosed. Duration of AFib is unknown. Follow echo. Patient has get been given therapeutic Lovenox. Patient started on Cardizem pushes in the ER and has been started on Cardizem p.o.. Uncontrolled medication adjusted by Cardiology The risks and benefits of long-term anticoagulation Anticoagulation managed by Cardio large bruise on right chest wall noted. will hold anticoagulation. ct chest revealed right pectoralis major intramuscular hematoma has required transfusion with fall risk he is at high risk for bleeding and with ongoing bleeding will stop anticoagulation off note he also remains in sinus rhythm since admission Back into AFib again. Started on Cardizem drip increased metoprolol to 75 mg twice a day and tapered off Cardizem drip. Is back to sinus rhythm this morning 01/23/2022 (2) COVID: Code(s): U07.1 - COVID-19 Status: Acute Assessment and Plan: Patient is complaining of cough and shortness of of breath intermittent wheeze CRP mildly elevated not on oxygen. 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; F02.80 - Dementia in other diseases classified elsewhere without behavioral disturbance Status: Inactive Assessment and Plan: PT OT eval (5) Parkinsons: Code(s): G20 - Parkinson's disease Status: Acute Assessment and Plan: Continue home medications (6) CHF exacerbation: Code(s): I50.9 - Heart failure, unspecified Status: Acute Assessment and Plan: Acute on top of chronic CHF exacerbation most likely diastolic Continue IV Lasix 2D echo shows diastolic dysfunction Reviewed chest x-ray and BNP 210 Worsen renal functionwill hold diuresis Received dose of IV Lasix 01/21/2022 off fluids due to congestion Renal function has improved and back to baseline (7) Chest wall hematoma: Code(s): S20.219A - Contusion of unspecified front wall of thorax, initial encounter Status: Acute Assessment and Plan: new h and h stable. will monitor. ct chest to evaluate. hold anticoagulation Acute blood loss anemia transfused 1 unit PRBC 01/19/2022 Continue to monitor H&H and transfuse p.r.n. General surgery consultation for any surgical intervention discussed with General surgery discussed with nephrology for risk of doing a CTA due to recent renal failure Repeat CTA done today with interval worsening with no acute extravasation in the hematoma. Monitor H&H and other supportive treatment (8) Acute blood loss anemia: Code(s): D62 - Acute posthemorrhagic anemia Status: Acute Assessment and Plan: transfuse p.r.n. Transfuse 1 unit of PRBC 01/19/2022 H&H down to 7.5 transfused 1 unit of PRBC 01/21/2022 H&H stable 01/22/2022 continue to monitor (9) Acute renal failure: Code(s): N17.9 - Acute kidney failure, unspecified Status: Acute Assessment and Plan: creatinine bumped up to 1.8 urine sodium low at 10 bland urinalysis bladder scan had only 120 cc 01/19/2022 ruling out urinary retention Started on normal saline 100 cc an hour Creatinine continues to worse in to 2.5 today Renal ultrasound Will place a Petersen catheter in for correct Intake and output Renal consultation, discussed with him Renal function improving now and resolve (10) Acute encephalopathy: Code(s): G93.40 - Encephalopathy, unspecified Status: Acute Assessment and Plan:
[2022-01-24] VITALS (16 sets, daily range): BP systolic 105–136; BP diastolic 56–85; PULSE 73–86; RESP 16–24; TEMP 36.3–36.6; O2SAT 95–100
[2022-01-24] MEDS: LEVALBUTEROL HFA (*SP) 15 GM INHALER 2 PUFF INHALATION ×4 (02:09→20:40)
[2022-01-24] MEDS: CENTRAL LINE FLUSH 10 ML IV PUSH ×4 (02:31→21:40)
[2022-01-24 04:47] LABS: Hematocrit 24.9 % (42.0-52.0); Mean Corpuscular HGB Conc 32.1 g/dl (32-36); Mean Corpuscular Hemoglobin 28.9 pg (26-34); Mean Corpuscular Volume 89.9 fl (80-100); Mean Platelet Volume 10.9 fl (7.4-10.4); Platelet Count Result 211 k/mm3 (150-375); Red Blood Count 2.77 M/mm3 (4.6-6.20); Red Cell Distribution Width 14.9 % (11.5-14.5); White Blood Count 10.7 K/mm3 (4.5-10.0)
[2022-01-24 05:01] LABS: Alanine Aminotransferase 18 U/L (6-50); Albumin Level 2.6 g/dL (3.5-5.1); Alkaline Phosphatase 46 U/L (38-126); Anion Gap 3 mmol/L (8-16); Aspartate Amino Transferase 37 U/L (17-59); Bilirubin,Total 1.8 mg/dL (0.2-1.3); Blood Urea Nitrogen 31 mg/dL (9-20); Calcium 7.8 mg/dL (8.4-10.2); Carbon Dioxide 29 mmol/L (22-30); Chloride 99 mmol/L (98-107); Estimated CRCL calculation 67 ml/min; Estimated Glomerular Filt Rate > 60; Glucose 145 mg/dL (65-110); Phosphorus 1.7 mg/dL (2.5-4.5); Potassium 3.7 mmol/L (3.4-5.0); Sodium 131 mmol/L (137-145)
[2022-01-24 05:20] LABS: Band Neutrophils Percent 5 % (0-6); Eosinophils Percent Manual 1 % (0-4); Lymphocytes Absolute Manual 1.28 K/mm3 (1.1-4.5); Metamyelocytes Percent 1 %; Monocytes Absolute Manual 0.53 K/mm3 (0.1-0.90); Monocytes Percent Manual 5 % (3-9); Neutrophils Absolute Manual 8.66 K/mm3 (1.3-6.7); Neutrophils Percent Manual 76 % (46-73); Total Cells Counted 100
[2022-01-24 05:21] LABS: Anisocytosis 2+ (NORMAL); Atypical Lymphocytes Present; Hypochromasia 2+ (NORMAL); Microcytosis 1+ (NORMAL); Ovalocytes 1+ (NORMAL); Platelet Estimate Adequate (Adequate); Poikilocytosis 2+ (NORMAL)
[2022-01-24] MEDS: FLUTICASONE/SALMETEROL 115-21 MCG (*SP) INHALER 2 PUFF INHALATION ×2 (08:22→20:40)
[2022-01-24] MEDS: CARBIDOPA/LEVODOPA 10/100 MG TABLET 1 TABLET PO ×3 (09:15→17:26)
[2022-01-24] MEDS: METOPROLOL TARTRATE 25 MG TABLET 75 MG PO ×2 (09:15→21:37)
[2022-01-24] MEDS: OPTI-GEN TAB 1 TABLET PO ×2 (09:15→17:26)
--- NOTE | 2022-01-24 09:59 | PM.PNGS ---
Progress Note: A&P Assessment and Plan (1) Chest wall hematoma: Code(s): S20.219A - Contusion of unspecified front wall of thorax, initial encounter Status: Acute Assessment and Plan: stable, CTA reviewed, cont conservative mgmt and serial exams (2) Acute blood loss anemia: Code(s): D62 - Acute posthemorrhagic anemia Status: Acute Assessment and Plan: stable, cont to trend labs Subjective Subjective Date/Time Seen: 01/24/22 09:59 feels better today, no further pain, numbness in LUE, more alert Review of Systems Review of Systems: All systems reviewed & are unremarkable except as noted in HPI and below Exam Chest: Other: L chest hematoma - unchanged, no active expansion noted Resp: Auscultation: clear to auscultation bilaterally Cardio: Rate: regular rate Rhythm: regular rhythm GI: Other: soft, NT, ND Objective Data Vital Signs Vital Signs: Vital Signs - 24 hr 01/23/22 13:20 01/23/22 12:00 01/23/22 12:00 Temperature 36.6 C 36.4 C Pulse Rate 83 82 Respiratory Rate 31 H 24 H Blood Pressure 106/62 106/62 Pulse Oximetry 97 98 Oxygen Delivery 01/23/22 14:00 01/23/22 16:00 01/23/22 16:00 Temperature 36.8 C Pulse Rate 76 77 80 Respiratory Rate 20 Blood Pressure 116/61 Pulse Oximetry 96 Oxygen Delivery 01/23/22 18:00 01/23/22 20:43 01/23/22 20:48 Temperature Pulse Rate 81 86 86 Respiratory Rate Blood Pressure Pulse Oximetry 97 Oxygen Delivery Room Air 01/23/22 20:48 01/23/22 20:00 01/23/22 20:00 Temperature Pulse Rate 86 84 84 Respiratory Rate 30 H 22 H Blood Pressure Pulse Oximetry 93 Oxygen Delivery Room Air 01/23/22 20:00 01/23/22 22:00 01/24/22 00:00 Temperature 36.8 C Pulse Rate 84 77 78 Respiratory Rate 22 H Blood Pressure 109/75 Pulse Oximetry 93 Oxygen Delivery 01/24/22 00:00 01/24/22 00:00 01/24/22 02:00 Temperature 36.3 C L Pulse Rate 78 78 79 Respiratory Rate 22 H 22 H Blood Pressure 128/65 Pulse Oximetry 97 97 Oxygen Delivery Room Air 01/24/22 02:10 01/24/22 04:00 01/24/22 04:00 Temperature Pulse Rate 81 78 78 Respiratory Rate 20 22 H Blood Pressure Pulse Oximetry 98 Oxygen Delivery Room Air 01/24/22 04:00 01/24/22 06:00 01/24/22 08:22 Temperature 36.3 C L Pulse Rate 78 81 76 Respiratory Rate 22 H Blood Pressure 129/72 Pulse Oximetry 98 95 Oxygen Delivery Room Air 01/24/22 09:15 01/24/22 08:00 01/24/22 08:00 Temperature Pulse Rate 81 80 80 Respiratory Rate 20 20 Blood Pressure 136/85 Pulse Oximetry 97 97 Oxygen Delivery Room Air 01/24/22 08:00 Temperature Pulse Rate 80 Respiratory Rate Blood Pressure Pulse Oximetry Oxygen Delivery Intake/Output Intake/Output: Intake & Output 01/21/22 01/22/22 01/23/22 01/24/22 23:59 23:59 23:59 23:59 Intake Total 1340 1300 1060 720 Output Total 2350 1700 1325 350 Balance -1010 -400 -265 370 Meds/Results Medications: Active Medications Generic Name Dose Route Start Last Admin Trade Name Freq PRN Reason Stop Dose Admin Acetaminophen 650 mg 01/20/22 21:05 01/20/22 21:19 Acetaminophen 325 Mg Tablet PO 650 mg Q6H PRN Administration Mild Pain (1-3) or Fever Carbidopa/Levodopa 1 tablet 01/14/22 08:00 01/24/22 09:15 Carbidopa/Levodopa 10/100 Mg Tablet PO 1 tablet TIDWM NENITA Administration Cefepime HCl 1 gm in 50 mls @ 100 mls/hr 01/20/22 12:00 01/23/22 12:37 Maxipime 1 Gm/D5w 50 Ml IVPB 100 mls/hr Q24H NENITA Administration Iron Sucrose 200 mg/ Sodium 60 mls @ 120 mls/hr 01/21/22 13:00 01/23/22 12:37 Chloride IVPB 01/25/22 13:29 120 mls/hr Q24H NENITA Administration Vancomycin HCl 1,500 mg in 500 mls @ 333.333 mls/hr 01/24/22 03:00 01/24/22 04:15 Vancomycin 1,500 Mg/D5w 500 Ml IVPB Infused Q18H NENITA Infusion Levalbuterol HCl 2 puff 01/14/22 02:00 01/24/22 08:22 Levalbuterol H
--- NOTE | 2022-01-24 12:03 | PM.IMPN ---
Progress Note: A&P Assessment and Plan (1) New onset a-fib: Code(s): I48.91 - Unspecified atrial fibrillation Status: Acute Assessment and Plan: Patient has new onset of AFib previously undiagnosed. Duration of AFib is unknown. Follow echo. Patient has get been given therapeutic Lovenox. Patient started on Cardizem pushes in the ER and has been started on Cardizem p.o.. Uncontrolled medication adjusted by Cardiology The risks and benefits of long-term anticoagulation Anticoagulation managed by Cardio large bruise on right chest wall noted. will hold anticoagulation. ct chest revealed right pectoralis major intramuscular hematoma has required transfusion with fall risk he is at high risk for bleeding and with ongoing bleeding will stop anticoagulation off note he also remains in sinus rhythm since admission Back into AFib again. Started on Cardizem drip increased metoprolol to 75 mg twice a day and tapered off Cardizem drip. Is back to sinus rhythm this morning 01/23/2022 -01/24/22 still in NSR and off cardizem ggt and will continue metoprolol 75 mg q12h for now w/ rate in the 70s-80s (2) COVID: Code(s): U07.1 - COVID-19 Status: Acute Assessment and Plan: Patient is complaining of cough and shortness of of breath intermittent wheeze CRP mildly elevated not on oxygen. No longer on COVID 19 isolation. Today is day 5 of cefepime and vancomycin. Will work to de-escalate antibiotics tomorrow if no other source can be found. Adequate oxygenation on room air. Will monitor. 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; F02.80 - Dementia in other diseases classified elsewhere without behavioral disturbance Status: Inactive Assessment and Plan: PT OT eval (5) Parkinsons: Code(s): G20 - Parkinson's disease Status: Acute Assessment and Plan: Continue home medications (6) CHF exacerbation: Code(s): I50.9 - Heart failure, unspecified Status: Acute Assessment and Plan: Acute on top of chronic CHF exacerbation most likely diastolic Continue IV Lasix 2D echo shows diastolic dysfunction Reviewed chest x-ray and BNP 210 Worsen renal functionwill hold diuresis Received dose of IV Lasix 01/21/2022 off fluids due to congestion Renal function has improved and back to baseline (7) Chest wall hematoma: Code(s): S20.219A - Contusion of unspecified front wall of thorax, initial encounter Status: Acute Assessment and Plan: new h and h stable. will monitor. ct chest to evaluate. hold anticoagulation Acute blood loss anemia transfused 1 unit PRBC 01/19/2022 Continue to monitor H&H and transfuse p.r.n. General surgery consultation for any surgical intervention discussed with General surgery discussed with nephrology for risk of doing a CTA due to recent renal failure Repeat CTA done today with interval worsening with no acute extravasation in the hematoma. Monitor H&H and other supportive treatment (8) Acute blood loss anemia: Code(s): D62 - Acute posthemorrhagic anemia Status: Acute Assessment and Plan: transfuse p.r.n. Transfuse 1 unit of PRBC 01/19/2022 H&H down to 7.5 transfused 1 unit of PRBC 01/21/2022 H&H stable 01/22/2022 continue to monitor -01/24/22 H/H stable. Will monitor. (9) Acute renal failure: Code(s): N17.9 - Acute kidney failure, unspecified Status: Acute Assessment and Plan: creatinine bumped up to 1.8 urine sodium low at 10 bland urinalysis bladder scan had only 120 cc 01/19/2022 ruling out urinary retention Started on norm
--- NOTE | 2022-01-24 12:27 | PM.PNNEP ---
Progress Note: A&P Assessment and Plan (1) Acute renal failure: Code(s): N17.9 - Acute kidney failure, unspecified Status: Acute Assessment and Plan: resolved due to volume depletion and pre-renal factors (poor oral intake, low H/H, possibly COVID) evaluation to date: urine electrolytes pre-renal urinalysis bland CPK mildly elevated but not likely high enough to affect kidneys creatinine has improved to normal continue supportive therapy (2) COVID-19 virus infection: Code(s): U07.1 - COVID-19 Status: Acute Assessment and Plan: normal oxygenation continue current therapy (3) New onset a-fib: Code(s): I48.91 - Unspecified atrial fibrillation Status: Acute Assessment and Plan: initially on diltiazem gtt for rate control rate control stable at this time (off gtt) continue supportive therapy (4) Chest wall hematoma: Code(s): S20.219A - Contusion of unspecified front wall of thorax, initial encounter Status: Acute Assessment and Plan: follow trend of H/H PRBC transfusion per protocol getting IV venofer given low TSAT General Surgery following as well may need further CT imaging Not much else to add -- will continue to follow from a distance Subjective Date/time seen: 01/24/22 12:27 Overall, he seems to be feeling reasonably well; no apparent distress voiced at the time of my visit; no acute issues/events overnight or earlier this morning; no other complaints to report. Exam Narrative: General: elderly WD/WN male in NAD Heart: normal S1 and S2; no rub or gallop Lungs: coarse breath sounds Abdomen: soft, nontender, nondistended, positive bowel sounds Extremities: no cyanosis or clubbing; no edema Skin: warm and dry Objective Data Vital Signs Vital Signs: Vital Signs Temp Pulse Resp BP Pulse Ox O2 Del Method 01/24/22 12:00 36.6 C 85 24 H 105/56 L 100 01/24/22 12:00 85 01/24/22 12:00 85 24 H 100 Room Air 01/24/22 10:00 73 01/24/22 08:00 80 01/24/22 08:00 80 20 136/85 97 01/24/22 08:00 80 20 97 Room Air 01/24/22 09:15 81 01/24/22 08:22 76 95 Room Air 01/24/22 06:00 81 01/24/22 04:00 36.3 C L 78 22 H 129/72 98 01/24/22 04:00 78 22 H 98 Room Air 01/24/22 04:00 78 01/24/22 02:10 81 20 01/24/22 02:00 79 01/24/22 00:00 36.3 C L 78 22 H 128/65 97 01/24/22 00:00 78 22 H 97 Room Air 01/24/22 00:00 78 01/23/22 22:00 77 01/23/22 20:00 36.8 C 84 22 H 109/75 93 01/23/22 20:00 84 22 H 93 Room Air 01/23/22 20:00 84 01/23/22 20:48 86 30 H 01/23/22 20:48 86 97 Room Air 01/23/22 20:43 86 01/23/22 18:00 81 01/23/22 16:00 80 01/23/22 16:00 36.8 C 77 20 116/61 96 Intake/Output Intake/Output: Intake & Output 01/21/22 01/22/22 01/23/22 01/24/22 23:59 23:59 23:59 23:59 Intake Total 1340 1300 1170 720 Output Total 2350 1700 1325 350 Balance -1010 -400 -155 370 Meds/Results Medications: Active Medications Generic Name Dose Route Start Last Admin Trade Name Freq PRN Reason Stop Dose Admin Acetaminophen 650 mg 01/20/22 21:05 01/20/22 21:19 Acetaminophen 325 Mg Tablet PO 650 mg Q6H PRN Administration Mild Pain (1-3) or Fever Carbidopa/Levodopa 1 tablet 01/14/22 08:00 01/24/22 13:29 Carbidopa/Levodopa 10/100 Mg Tablet PO 1 tablet TIDWM NENITA Administration Cefepime HCl 1 gm in 50 mls @ 100 mls/hr 01/20/22 12:00 01/24/22 13:19 Maxipime 1 Gm/D5w 50 Ml IVPB 100 mls/hr Q24H NENITA Administration Iron Sucrose 200 mg/ Sodium 60 mls @ 120 mls/hr 01/21/22 13:00 01/24/22 13:19 Chloride IVPB 01/25/22 13:29 120 mls/hr Q24H NENITA Administration Vancomycin HCl 1,500 mg in 500 mls @ 333.333 mls/hr 01/24/22 03:00 01/24/22 04:15 Vancomycin 1,500 Mg/D5w 500 Ml IVPB Infused
[2022-01-24] MEDS: IRON SUCROSE COMPLEX 200 MG in SODIUM CHLORIDE 0.9% IV 50 ML 120 MG IVPB (13:19)
[2022-01-25] VITALS (12 sets, daily range): BP systolic 111–137; BP diastolic 74–79; PULSE 69–88; RESP 18–22; TEMP 36.1–36.4; O2SAT 95–98
[2022-01-25] MEDS: LEVALBUTEROL HFA (*SP) 15 GM INHALER 2 PUFF INHALATION ×4 (01:58→20:58)
[2022-01-25] MEDS: CENTRAL LINE FLUSH 10 ML IV PUSH ×3 (06:03→20:24)
[2022-01-25 06:20] LABS: Basophils Absolute Auto 0.1 K/mm3 (0.0-0.1); Basophils Percent Auto 0.7 % (0.2-1.2); Eosinophils Absolute Auto 0.1 K/mm3 (0-0.3); Eosinophils Percent Auto 1.2 % (0-4.4); Hematocrit 27.2 % (42.0-52.0); Hemoglobin 8.5 g/dL (14.0-18.0); Immature Granulocyte Absolute 1.01 K/mm3 (0.00-0.031); Immature Granulocyte Percent A 8.9 % (0-0.5); Lymphocytes Absolute Auto 1.21 K/mm3 (0.9-3.2); Lymphocytes Percent Auto 10.7 % (18.3-44.2); Mean Corpuscular HGB Conc 31.3 g/dl (32-36); Mean Corpuscular Hemoglobin 28.4 pg (26-34); Mean Platelet Volume 10.9 fl (7.4-10.4); Monocytes Percent Auto 8.7 % (2.6-8.5); Neutrophils Absolute Auto 7.9 K/mm3 (1.3-6.7); Neutrophils Percent Auto 69.8 % (45.5-73.1); Nucleated Red Blood Cells Perc 0.2 % (0.0-0.2); Platelet Count Result 236 k/mm3 (150-375); Red Blood Count 2.99 M/mm3 (4.6-6.20); Red Cell Distribution Width 15.2 % (11.5-14.5); White Blood Count 11.3 K/mm3 (4.5-10.0)
[2022-01-25 06:32] LABS: Anion Gap 2 mmol/L (8-16); Blood Urea Nitrogen 24 mg/dL (9-20); Calcium 8.1 mg/dL (8.4-10.2); Carbon Dioxide 28 mmol/L (22-30); Chloride 100 mmol/L (98-107); Estimated CRCL calculation 60 ml/min; Estimated Glomerular Filt Rate > 60; Glucose 105 mg/dL (65-110); Sodium 130 mmol/L (137-145)
[2022-01-25 06:41] LABS: Anisocytosis 1+ (NORMAL); Hypochromasia 1+ (NORMAL); Platelet Estimate Adequate (Adequate)
[2022-01-25 06:43] LABS: Poikilocytosis 1+ (NORMAL)
[2022-01-25] MEDS: FLUTICASONE/SALMETEROL 115-21 MCG (*SP) INHALER 2 PUFF INHALATION ×2 (08:05→20:58)
[2022-01-25] MEDS: OPTI-GEN TAB 1 TABLET PO ×2 (08:50→17:49)
[2022-01-25] MEDS: METOPROLOL TARTRATE 25 MG TABLET 75 MG PO ×2 (08:50→20:24)
[2022-01-25] MEDS: CARBIDOPA/LEVODOPA 10/100 MG TABLET 1 TABLET PO ×3 (08:50→17:49)
--- NOTE | 2022-01-25 09:39 | PCSTNOTE ---
Please refer to the Modified Barium Swallow Evaluation in the EMR.
--- NOTE | 2022-01-25 12:52 | PM.PNGS ---
Progress Note: A&P Assessment and Plan (1) Chest wall hematoma: Code(s): S20.219A - Contusion of unspecified front wall of thorax, initial encounter Status: Acute Assessment and Plan: stable, no further evidence of active bleed, LUE exam normal, ok to dc from surgical standpoint c f/u as outpt in 2 wks (2) Acute blood loss anemia: Code(s): D62 - Acute posthemorrhagic anemia Status: Acute Assessment and Plan: no further bleeding noted Subjective Subjective Date/Time Seen: 01/25/22 12:52 no acute issues overnight, feels ok today, no further LUE pain, numbness Review of Systems Review of Systems: All systems reviewed & are unremarkable except as noted in HPI and below Exam Const: General: cooperative, comfortable and no acute distress Chest: Other: L chest hematoma - sl softer, no TTP, bruising improved Resp: Auscultation: clear to auscultation bilaterally Cardio: Rate: regular rate Rhythm: regular rhythm GI: Inspection: normal to inspection Objective Data Vital Signs Vital Signs: Vital Signs - 24 hr 01/24/22 14:00 01/24/22 15:39 01/24/22 16:00 Temperature 36.6 C Pulse Rate 78 79 Respiratory Rate 16 Blood Pressure 122/58 L Pulse Oximetry 100 Oxygen Delivery Room Air 01/24/22 20:40 01/24/22 21:37 01/24/22 22:00 Temperature 36.4 C L Pulse Rate 86 86 Respiratory Rate 18 Blood Pressure 129/85 Pulse Oximetry 95 95 Oxygen Delivery Room Air 01/24/22 20:00 01/24/22 20:00 01/25/22 00:00 Temperature Pulse Rate 80 75 Respiratory Rate Blood Pressure Pulse Oximetry Oxygen Delivery Room Air 01/25/22 04:00 01/25/22 06:00 01/25/22 08:05 Temperature 36.4 C Pulse Rate 81 79 Respiratory Rate 18 Blood Pressure 126/79 Pulse Oximetry 98 96 Oxygen Delivery Room Air 01/25/22 08:00 Temperature Pulse Rate 88 Respiratory Rate Blood Pressure Pulse Oximetry Oxygen Delivery Intake/Output Intake/Output: Intake & Output 01/22/22 01/23/22 01/24/22 01/25/22 23:59 23:59 23:59 23:59 Intake Total 1300 1170 3130 60 Output Total 1700 1325 350 550 Balance -400 -155 2780 -490 Meds/Results Medications: Active Medications Generic Name Dose Route Start Last Admin Trade Name Freq PRN Reason Stop Dose Admin Acetaminophen 650 mg 01/20/22 21:05 01/20/22 21:19 Acetaminophen 325 Mg Tablet PO 650 mg Q6H PRN Administration Mild Pain (1-3) or Fever Carbidopa/Levodopa 1 tablet 01/14/22 08:00 01/25/22 11:42 Carbidopa/Levodopa 10/100 Mg Tablet PO 1 tablet TIDWM NENITA Administration Cefepime HCl 1 gm in 50 mls @ 100 mls/hr 01/20/22 12:00 01/25/22 11:42 Maxipime 1 Gm/D5w 50 Ml IVPB 100 mls/hr Q24H NENITA Administration Iron Sucrose 200 mg/ Sodium 60 mls @ 120 mls/hr 01/21/22 13:00 01/24/22 18:13 Chloride IVPB 01/25/22 13:29 Infused Q24H NENITA Infusion Vancomycin HCl 1,500 mg in 500 mls @ 333.333 mls/hr 01/24/22 03:00 01/24/22 22:50 Vancomycin 1,500 Mg/D5w 500 Ml IVPB Infused Q18H NENITA Infusion Levalbuterol HCl 2 puff 01/14/22 02:00 01/25/22 08:05 Levalbuterol Hfa (*Sp) 15 Gm Inhaler INHALATION 2 puff Q6HRT NENITA Administration Metoprolol Tartrate 75 mg 01/21/22 09:00 01/25/22 08:50 Metoprolol Tartrate 25 Mg Tablet PO 75 mg Q12HR NENITA Administration Multivitamins/Minerals 1 tablet 01/14/22 09:00 01/25/22 08:50 Opti-Gen Tab PO 1 tablet BID NENITA Administration Perflutren Lipid Microsphere 0 ml 01/13/22 20:45 Perflutren Lipid Microspheres 1.5 Ml Vial Diluted To 10 Ml Total Volume IV PUSH ONCE PRN adequate visualization Protocol Fluticasone/Salmeterol 2 puff 01/19/22 08:00 01/25/22 08:05 Fluticasone/Salmeterol 115-21 Mcg (*Sp) Inhaler INHALATION 2 puff Q12HRT NENITA Administration Sodium Chloride 10 ml 01/22/22 06:00 01/25/22 06:03 Central Line Flush IV PUSH 10 ml Q8HR NENITA Administration So
[2022-01-25] MEDS: IRON SUCROSE COMPLEX 200 MG in SODIUM CHLORIDE 0.9% IV 50 ML 120 MG IVPB (13:31)
--- NOTE | 2022-01-25 20:19 | PM.IMPN ---
Progress Note: A&P Assessment and Plan (1) New onset a-fib: Code(s): I48.91 - Unspecified atrial fibrillation Status: Acute Assessment and Plan: Patient has new onset of AFib previously undiagnosed. Duration of AFib is unknown. Follow echo. Patient has get been given therapeutic Lovenox. Patient started on Cardizem pushes in the ER and has been started on Cardizem p.o.. Uncontrolled medication adjusted by Cardiology The risks and benefits of long-term anticoagulation Anticoagulation managed by Cardio large bruise on right chest wall noted. will hold anticoagulation. ct chest revealed right pectoralis major intramuscular hematoma has required transfusion with fall risk he is at high risk for bleeding and with ongoing bleeding will stop anticoagulation off note he also remains in sinus rhythm since admission Back into AFib again. Started on Cardizem drip increased metoprolol to 75 mg twice a day and tapered off Cardizem drip. Is back to sinus rhythm this morning 01/23/2022 -01/24/22 still in NSR and off cardizem ggt and will continue metoprolol 75 mg q12h for now w/ rate in the 70s-80s -01/25/22 still with good rate control will continue metoprolol and plan to discharge with this dose (2) COVID: Code(s): U07.1 - COVID-19 Status: Acute Assessment and Plan: Patient is complaining of cough and shortness of of breath intermittent wheeze CRP mildly elevated not on oxygen. No longer on COVID 19 isolation. Today is day 5 of cefepime and vancomycin. Adequate oxygenation on room air. Will monitor. 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; F02.80 - Dementia in other diseases classified elsewhere without behavioral disturbance Status: Inactive Assessment and Plan: PT OT eval (5) Parkinsons: Code(s): G20 - Parkinson's disease Status: Acute Assessment and Plan: Continue home medications (6) CHF exacerbation: Code(s): I50.9 - Heart failure, unspecified Status: Acute Assessment and Plan: Acute on top of chronic CHF exacerbation most likely diastolic Continue IV Lasix 2D echo shows diastolic dysfunction Reviewed chest x-ray and BNP 210 Worsen renal functionwill hold diuresis Received dose of IV Lasix 01/21/2022 off fluids due to congestion Renal function has improved and back to baseline (7) Chest wall hematoma: Code(s): S20.219A - Contusion of unspecified front wall of thorax, initial encounter Status: Acute Assessment and Plan: new h and h stable. will monitor. ct chest to evaluate. hold anticoagulation Acute blood loss anemia transfused 1 unit PRBC 01/19/2022 Continue to monitor H&H and transfuse p.r.n. General surgery consultation for any surgical intervention discussed with General surgery discussed with nephrology for risk of doing a CTA due to recent renal failure Repeat CTA done today with interval worsening with no acute extravasation in the hematoma. Monitor H&H and other supportive treatment 01/25 H/H remains stable and patient is neurovascularly intact and contusion does not appear to be worsening (8) Acute blood loss anemia: Code(s): D62 - Acute posthemorrhagic anemia Status: Acute Assessment and Plan: transfuse p.r.n. Transfuse 1 unit of PRBC 01/19/2022 H&H down to 7.5 transfused 1 unit of PRBC 01/21/2022 H&H stable 01/22/2022 continue to monitor -01/24/22 H/H stable. Will monitor. -01/25 H/H stable (9) Acute renal failure: Code(s): N17.9 - Acute kidney failure, unspecified Status: Acute Assessment and Plan: creatinin
[2022-01-26] VITALS (8 sets, daily range): BP systolic 108–156; BP diastolic 60–82; PULSE 62–83; RESP 20; TEMP 36.2–36.4; O2SAT 96–100; BMI 31.1
[2022-01-26] MEDS: LEVALBUTEROL HFA (*SP) 15 GM INHALER 2 PUFF INHALATION ×3 (02:20→13:32)
[2022-01-26] MEDS: CENTRAL LINE FLUSH 10 ML IV PUSH ×2 (05:29→14:52)
[2022-01-26] MEDS: FLUTICASONE/SALMETEROL 115-21 MCG (*SP) INHALER 2 PUFF INHALATION (07:53)
[2022-01-26 08:42] LABS: Hematocrit 27.9 % (42.0-52.0); Hemoglobin 8.8 g/dL (14.0-18.0); Mean Corpuscular HGB Conc 31.5 g/dl (32-36); Mean Corpuscular Hemoglobin 28.7 pg (26-34); Mean Corpuscular Volume 90.9 fl (80-100); Mean Platelet Volume 10.6 fl (7.4-10.4); Platelet Count Result 240 k/mm3 (150-375); Red Blood Count 3.07 M/mm3 (4.6-6.20); Red Cell Distribution Width 15.8 % (11.5-14.5); White Blood Count 9.6 K/mm3 (4.5-10.0)
[2022-01-26 08:52] LABS: Alanine Aminotransferase 30 U/L (6-50); Alkaline Phosphatase 59 U/L (38-126); Anion Gap 4 mmol/L (8-16); Aspartate Amino Transferase 45 U/L (17-59); Bilirubin,Total 2.9 mg/dL (0.2-1.3); Blood Urea Nitrogen 21 mg/dL (9-20); Calcium 8.2 mg/dL (8.4-10.2); Carbon Dioxide 27 mmol/L (22-30); Chloride 102 mmol/L (98-107); Estimated CRCL calculation 60 ml/min; Estimated Glomerular Filt Rate > 60; Glucose 98 mg/dL (65-110); Sodium 133 mmol/L (137-145)
[2022-01-26 09:07] LABS: Vancomycin Trough 15.6 ug/mL (10.0-20.0)
[2022-01-26] MEDS: CARBIDOPA/LEVODOPA 10/100 MG TABLET 1 TABLET PO ×3 (09:13→17:44)
[2022-01-26] MEDS: METOPROLOL TARTRATE 25 MG TABLET 75 MG PO (09:13)
[2022-01-26] MEDS: OPTI-GEN TAB 1 TABLET PO ×2 (09:13→17:44)
[2022-01-26 09:28] LABS: Free T4 Free Thyroxine 1.47 ng/mL (0.78-2.19)
--- NOTE | 2022-01-26 10:49 | PM.PNGS ---
Progress Note: A&P Assessment and Plan (1) Chest wall hematoma: Code(s): S20.219A - Contusion of unspecified front wall of thorax, initial encounter Status: Acute Assessment and Plan: stable if not improved, H/H stable, exam benign, will sign off, call c ?s, issues Subjective Subjective Date/Time Seen: 01/26/22 10:30 no acute issues overnight, resting comfortably this am, denies any pain Review of Systems Review of Systems: All systems reviewed & are unremarkable except as noted in HPI and below Exam Const: General: cooperative, comfortable, no acute distress and confusion Chest: Other: L chest wall hematoma - softer, sl less pronounced, bruising improved, no TTP, LUE c good motor/sensory Resp: Auscultation: clear to auscultation bilaterally Cardio: Rate: regular rate Rhythm: regular rhythm GI: Inspection: normal to inspection Objective Data Vital Signs Vital Signs: Vital Signs - 24 hr 01/25/22 12:00 01/25/22 14:00 01/25/22 16:00 Temperature 36.3 C L Pulse Rate 77 85 79 Respiratory Rate 22 H Blood Pressure 111/74 Pulse Oximetry 97 Oxygen Delivery 01/25/22 20:24 01/25/22 21:02 01/25/22 20:00 Temperature Pulse Rate 81 81 Respiratory Rate Blood Pressure Pulse Oximetry 95 Oxygen Delivery Room Air 01/25/22 22:00 01/26/22 00:00 01/26/22 04:00 Temperature 36.1 C L Pulse Rate 69 65 83 Respiratory Rate 20 Blood Pressure 137/77 Pulse Oximetry 97 Oxygen Delivery 01/26/22 06:00 01/26/22 07:52 01/26/22 08:00 Temperature 36.4 C Pulse Rate 83 73 Respiratory Rate 20 Blood Pressure 156/82 H Pulse Oximetry 98 96 Oxygen Delivery Room Air Intake/Output Intake/Output: Intake & Output 01/23/22 01/24/22 01/25/22 01/26/22 23:59 23:59 23:59 23:59 Intake Total 1170 3130 885 120 Output Total 2477 832 5380 Balance -155 2780 -165 120 Meds/Results Medications: Active Medications Generic Name Dose Route Start Last Admin Trade Name Freq PRN Reason Stop Dose Admin Acetaminophen 650 mg 01/20/22 21:05 01/20/22 21:19 Acetaminophen 325 Mg Tablet PO 650 mg Q6H PRN Administration Mild Pain (1-3) or Fever Carbidopa/Levodopa 1 tablet 01/14/22 08:00 01/26/22 09:13 Carbidopa/Levodopa 10/100 Mg Tablet PO 1 tablet TIDWM NENITA Administration Cefepime HCl 1 gm in 50 mls @ 100 mls/hr 01/20/22 12:00 01/25/22 12:12 Maxipime 1 Gm/D5w 50 Ml IVPB Infused Q24H NENITA Infusion Vancomycin HCl 1,500 mg in 500 mls @ 333.333 mls/hr 01/26/22 15:00 Vancomycin 1,500 Mg/D5w 500 Ml IVPB Q24H NENITA Levalbuterol HCl 2 puff 01/14/22 02:00 01/26/22 07:53 Levalbuterol Hfa (*Sp) 15 Gm Inhaler INHALATION 2 puff Q6HRT NENITA Administration Metoprolol Tartrate 75 mg 01/21/22 09:00 01/26/22 09:13 Metoprolol Tartrate 25 Mg Tablet PO 75 mg Q12HR NENITA Administration Multivitamins/Minerals 1 tablet 01/14/22 09:00 01/26/22 09:13 Opti-Gen Tab PO 1 tablet BID NENITA Administration Perflutren Lipid Microsphere 0 ml 01/13/22 20:45 Perflutren Lipid Microspheres 1.5 Ml Vial Diluted To 10 Ml Total Volume IV PUSH ONCE PRN adequate visualization Protocol Fluticasone/Salmeterol 2 puff 01/19/22 08:00 01/26/22 07:53 Fluticasone/Salmeterol 115-21 Mcg (*Sp) Inhaler INHALATION 2 puff Q12HRT NENITA Administration Sodium Chloride 10 ml 01/22/22 06:00 01/26/22 05:29 Central Line Flush IV PUSH 10 ml Q8HR NENITA Administration Sodium Chloride 10 ml 01/21/22 22:53 Central Line Flush IV PUSH PRN PRN with TPN bag changes Sodium Chloride 20 ml 01/21/22 22:53 Central Line Flush IV PUSH PRN PRN after blood draws Radiology Results: ITS Impressions Chest CT 01/18/22 11:36 IMPRESSION: 1. Asymmetric enlargement of the right pectoralis muscle with areas of internal fluid attenuation, consistent with intramuscular hematoma. There is extension
--- NOTE | 2022-01-26 15:54 | PM.DS ---
DS: Admitting Diagnosis Discharge Date 01/26/2022 Admitting Diagnosis Acute Blood Loss Anemia DS: Discharge Diagnosis Discharge Diagnosis (1) New onset a-fib: Code(s): I48.91 - Unspecified atrial fibrillation Status: Acute Assessment and Plan: Patient has new onset of AFib previously undiagnosed. Duration of AFib is unknown. Follow echo. Patient has get been given therapeutic Lovenox. Patient started on Cardizem pushes in the ER and has been started on Cardizem p.o.. Uncontrolled medication adjusted by Cardiology The risks and benefits of long-term anticoagulation Anticoagulation managed by Cardio large bruise on right chest wall noted. will hold anticoagulation. ct chest revealed right pectoralis major intramuscular hematoma has required transfusion with fall risk he is at high risk for bleeding and with ongoing bleeding will stop anticoagulation off note he also remains in sinus rhythm since admission Back into AFib again. Started on Cardizem drip increased metoprolol to 75 mg twice a day and tapered off Cardizem drip. Is back to sinus rhythm this morning 01/23/2022 -01/24/22 still in NSR and off cardizem ggt and will continue metoprolol 75 mg q12h for now w/ rate in the 70s-80s -01/25/22 still with good rate control will continue metoprolol and plan to discharge with this dose -01/26/22 patient with good rate control will dicharge to [facility] for rehab (2) COVID: Code(s): U07.1 - COVID-19 Status: Acute Assessment and Plan: Patient is complaining of cough and shortness of of breath intermittent wheeze CRP mildly elevated not on oxygen. No longer on COVID 19 isolation. Adequate oxygenation on room air. Patient completed 7 days of cefepime and vancomycin. (3) Urinary incontinence: Qualifiers: Urinary Incontinence type: unspecified incontinence Qualified Code(s): R32 - Unspecified urinary incontinence Code(s): R32 - Unspecified urinary incontinence Status: Acute Assessment and Plan: 01/19 UA unremarkable. (4) Dementia associated with Parkinson's disease: Code(s): G20 - Parkinson's disease; F02.80 - Dementia in other diseases classified elsewhere without behavioral disturbance Status: Inactive Assessment and Plan: Patient drowsiness likely related to carbidopa levodopa as patient was recently diagnosed with Parkinson's and was not regularly taking this medication as prescribed at home. -Continue carbidopa-levadopa (5) Parkinsons: Code(s): G20 - Parkinson's disease Status: Acute Assessment and Plan: Continue home medications (6) CHF exacerbation: Code(s): I50.9 - Heart failure, unspecified Status: Acute Assessment and Plan: Acute on top of chronic CHF exacerbation most likely diastolic Continue IV Lasix 2D echo shows diastolic dysfunction Reviewed chest x-ray and BNP 210 Worsen renal functionwill hold diuresis Received dose of IV Lasix 01/21/2022 off fluids due to congestion Renal function has improved and back to baseline (7) Chest wall hematoma: Code(s): S20.219A - Contusion of unspecified front wall of thorax, initial encounter Status: Acute Assessment and Plan: new h and h stable. will monitor. ct chest to evaluate. hold anticoagulation Acute blood loss anemia transfused 1 unit PRBC 01/19/2022 Continue to monitor H&H and transfuse p.r.n. General surgery consultation for any surgical intervention discussed with General surgery discussed with nephrology for risk of doing a CTA due to recent renal failure Repeat CTA done today with interval worsening with no acute extravasation in the hematoma. Monitor H&H and other supportive treatment 01/25 H/H remains stable and patient is neurovascularly intact and contusion does not appear to be worsening 01/26 H/H remains stable and patient is neurovascularly intact and contusion does not appear to be worsening -Patient w
== END 2022-01-26 20:00 | DRG 177 ==
LOC: ANHED 18:26 → ANH2MED 21:16 → ANHIMU 01-21 05:34 → ANHICU 01-22 16:54 → ANH3MEDSUR 01-24 16:11
PROVIDERS: Internal Medicine; Internal Medicine Cardiovascular Disease; Internal Medicine Nephrology; Surgery; Admitting Provider Internal Medicine; Emergency Provider Nurse Practitioner Family; PCP Family Medicine Adolescent Medicine; Visit Provider Family Medicine
DX: U07.1 COVID-19 (principal); I50.33 Acute on chronic diastolic (congestive) heart failure; G92.8 Other toxic encephalopathy; D62 Acute posthemorrhagic anemia; N17.9 Acute kidney failure, unspecified; I48.91 Unspecified atrial fibrillation; G20 Parkinson's disease; J44.9 Chronic obstructive pulmonary disease, unspecified; F02.80 Dementia in other diseases classified elsewhere, unspecified severity, without behavioral disturbance, psychotic disturbance, mood disturbance, and anxiety; H35.30 Unspecified macular degeneration; R32 Unspecified urinary incontinence; Z91.81 History of falling; E86.9 Volume depletion, unspecified; M79.81 Nontraumatic hematoma of soft tissue; T45.515A Adverse effect of anticoagulants, initial encounter; Y92.230 Patient room in hospital as the place of occurrence of the external cause
CPT/HCPCS: 36415; 36430; 36569; 36600; 70450; 71045; 71250; 71275; 74175; 76775; 80048; 80053; 80202; 81001; 82550; 82570; 82607; 82728; 82746; 82805; 82948; 83540; 83550; 83735; 83880; 84100; 84300; 84439; 84443; 84484; 85014; 85018; 85025; 85027; 85610; 85730; 86140; 86850; 86900; 86901; 86920; 87040; 92610; 92611; 93005; 93306; 94640; 96361; 96372; 96374; 96375; 96376; 97110; 97116; 97162; 97165; 97166; 97530; 97535; 99285; A9270; C1751; C9803; G0378; J0692; J1650; J1756; J1940; J3370; J7030; J7050; P9016; Q9967; U0003; U0005